=== PATIENT | female | born 1955 | race Caucasian/White ===

== ENCOUNTER → 2017-08-22 10:01 | Outpatient (CLI) | payer OTHER, SELFPAY ==
--- NOTE | 2017-08-22 10:04 | HPBI_ITS ---
MAMMOGRAPHY - BILATERAL SCREENING REASON FOR EXAM: Female, 62 years old. Routine annual screening examination. PERTINENT HISTORY: Non-contributory. Remote right stereotactic breast biopsy. TECHNIQUE: Digital bilateral breast supa (3D mammographic acquisition) in the CC and MLO projections. 2-D mediolateral oblique (MLO) and craniocaudad (CC) views of both breasts were obtained. CAD: Full Field Digital Mammography with Computer Added Detection was performed. COMPARISON: Comparison is made with prior study dated July 30, 2016 and July 29, 2015. FINDINGS: Breast Composition: The breasts are heterogeneously dense, which may obscure small masses. There are no dominant masses or suspicious calcifications. No other significant abnormalities are identified. There has been no significant change since the prior study. HPBI/SCREENING MAMM (CAD), BILAT IMPRESSION: Stable bilateral screening mammogram. Yearly follow-up mammogram recommended. (A) ASSESSMENT CATEGORY: BIRADS Category 1: Negative. A letter regarding these results will be sent to the patient by the facility within 30 days. Approximately 10% of breast cancers are not detected by mammography. A normal mammogram should not delay biopsy of a clinically suspicious abnormality. [id number] Electronically Signed: Krishna Robins MD at 10:56 EST Tel [phone], Service support ,
== END ==
PROVIDERS: Family Provider Family Medicine; PCP Family Medicine; Visit Provider Obstetrics & Gynecology
DX: Z12.31 Encounter for screening mammogram for malignant neoplasm of breast (principal)
CPT/HCPCS: 77063; 77067

== ENCOUNTER → 2017-12-21 08:54 | Outpatient (CLI) | payer OTHER, SELFPAY ==
[2017-12-21 10:56] LABS: AST(SGOT) 19 U/L (15-37); Alanine Aminotransfer ALT/SGPT 28 U/L (13-56); Albumin, Serum 3.7 g/dL (3.2-5.0); Alkaline Phosphatase 70 U/L (45-117); Bilirubin, Direct 0.11 mg/dL (0.00-0.30); Cholesterol 194 mg/dL (200); Globulin 2.9 g/dL (2.2-4.2); High Density Lipoprotein 103 mg/dL; Protein, Total 6.6 g/dL (6.4-8.2); Triglycerides 68 mg/dL; Very Low Density Lipoprotein 14 mg/dL (5-40)
== END ==
PROVIDERS: Nurse Practitioner Family; Family Provider Family Medicine; PCP Family Medicine; Visit Provider Internal Medicine Cardiovascular Disease
DX: E78.5 Hyperlipidemia, unspecified (principal); Z79.899 Other long term (current) drug therapy
CPT/HCPCS: 36415; 80061; 80076

== ENCOUNTER → 2017-12-23 16:33 | Outpatient (CLI) | payer OTHER, SELFPAY ==
--- NOTE | 2017-12-23 10:38 | COLBX_PTH ---
PATIENT: BHAVIN JOHNSON LOC: [facility] U#:[id number] AGE/SX: 70/F ROOM: RE12/23/[address]: Dr. Avery Calle MD : [id number] BED: DIS: SPEC #: [id number] RECD: 12/23/17 15:36 STATUS: CODIE DE LA O #: [id number] DAVID: 12/23/17 10:[address]: Avery Calle DEPT: SURGICAL PATHOLOGY RECD BY: Brady Sanchez ENTERED: 12/26/17 07:50 SP TYPE: COLON BX OTHR DR: Dr. Aster Faust MD [facility] Tissues: Cecum, NOS Procedures: Surgery Specimen Level IV HEADER OPERATION: Colonoscopy with polypectomy PRE-OP DIAGNOSIS: Screening/polyp TISSUE SUBMITTED: Cecal polyp, rule out adenoma MICROSCOPIC DIAGNOSIS Cecal polyp, biopsy: Fragments of tubular adenoma. AM:sp 12/27/17 MICROSCOPIC DESCRIPTION Slides are reviewed. GROSS DESCRIPTION Received in fixative is one container labeled with the patient's name and designated rectal polyp. The specimen consists of multiple irregular fragments of castillo soft tissue that in aggregate measure 2.5 x 1.5 x 0.2 cm. The entire specimen is submitted in one cassette. BARB:aurea 12/26/17 TC: 5 CPT: 25411
== END ==
PROVIDERS: Visit Provider Internal Medicine Gastroenterology
DX: Z12.11 Encounter for screening for malignant neoplasm of colon (principal); D12.0 Benign neoplasm of cecum
CPT/HCPCS: 88305

== ENCOUNTER → 2018-01-17 07:50 | Outpatient (CLI) | payer OTHER, SELFPAY ==
--- NOTE | 2018-01-17 07:53 | CT_ITS ---
STUDY: CTA CHEST REASON FOR EXAM: Female, 62 years old. Ascending aortic aneurysm follow up, no new problems. Hx hypertension, prior breast biopsy. RADIATION DOSAGE (If Supplied By Facility): CTDIvol = ( 6.60 ) mGy, DLP = ( 226.27 ) mGycm TECHNIQUE: The examination was performed with the intravenous administration of 75mL ml of Isovue 370 contrast material. Post-processing of the angiographic images was performed, with multiplanar reformation and 3D reconstruction. Individualized dose optimization techniques were used for this CT. COMPARISON: Jan 19 2017 8:02am and Dec 19 2013 7:56am FINDINGS: There is stable dilatation of the aortic root up to 4.3 cm, approximately 4.2 cm in 2013. There is stable fusiform ascending thoracic aneurysm 4.5 x 4.5 cm. There is no dissection or hemopericardium. The descending thoracic aorta measures 2 x 1.9 cm and is normal Mild compression of dependent lung parenchyma. Stable nodular thickening of the left major fissure since 2013. There is no demonstrated pleural abnormality. Normal heart and pericardium. Normal mediastinum. Normal hilar regions. Normal enhanced pulmonary arteries. There are stable mild degenerative changes of the thoracic spine, hemangioma of T8 vertebral body is stable lower thoracic prominent neural sheath. No renal mass/schwannoma cannot be .. There is no demonstrated abnormality of the visualized upper abdomen. CT/CTA Chest W/WO Contrast IMPRESSION: No significant change in dilatation of the aortic root measuring up to 4.3 cm in falciform dilatation of the ascending thoracic aorta of 4.5 cm. Electronically Signed: Lucia Padilla MD at 10:54 EDT Tel , Service support ,
[2018-01-17 08:10] LABS: CREATININE FINGERSTICK 0.7 mg/dL (0.55-1.02); EGFR FINGERSTICK > 60.0000 mL/min (>60)
== END ==
PROVIDERS: Family Provider Family Medicine; PCP Family Medicine; Visit Provider Internal Medicine Cardiovascular Disease
DX: I77.810 Thoracic aortic ectasia (principal)
CPT/HCPCS: 71275; Q9967

== ENCOUNTER → 2018-09-11 08:20 | Outpatient (CLI) | payer OTHER, SELFPAY ==
--- NOTE | 2018-09-11 08:23 | BI_ITS ---
MAMMOGRAPHY - BILATERAL SCREENING REASON FOR EXAM: Female, 63 years old. Routine annual screening examination. PERTINENT HISTORY: NO FM HX , CURRENT VAG ESTROGEN X 6 YRS, RT STEREO BX 20+ yrs ago, lt mole marked TECHNIQUE: Digital bilateral breast supa (3D mammographic acquisition) in the CC and MLO projections. 2-D mediolateral oblique (MLO) and craniocaudad (CC) views of both breasts were obtained. CAD: Full Field Digital Mammography with Computer Added Detection was performed. COMPARISON: 08/22/2017, 07/30/2016 and 07/29/2015 FINDINGS: Breast Composition: There are no dominant masses or suspicious calcifications. Scattered benign-appearing round and punctate calcifications are seen in both breasts are not significantly unchanged since the previous study. No other significant abnormalities are identified. BI/SCREENING MAMM (CAD), BILAT IMPRESSION: Stable bilateral screening mammogram. Yearly follow-up mammogram recommended. (A) ASSESSMENT CATEGORY: BIRADS Category 2: Benign. A letter regarding these results will be sent to the patient by the facility within 30 days. Approximately 10% of breast cancers are not detected by mammography. A normal mammogram should not delay biopsy of a clinically suspicious abnormality. [id number] Electronically Signed: Lucia Padilla, at 11:48 EDT Tel , Service support ,
== END ==
PROVIDERS: Family Provider Family Medicine; PCP Family Medicine; Referring Provider Obstetrics & Gynecology; Visit Provider Obstetrics & Gynecology
DX: Z12.31 Encounter for screening mammogram for malignant neoplasm of breast (principal)
CPT/HCPCS: 77063; 77067

== ENCOUNTER → 2019-01-26 | Outpatient (CLI) | payer OTHER, SELFPAY ==
[2019-01-26 10:02] LABS: AST(SGOT) 13 U/L (15-37); Alanine Aminotransfer ALT/SGPT 24 U/L (13-56); Albumin, Serum 3.7 g/dL (3.2-5.0); Alkaline Phosphatase 64 U/L (45-117); Bilirubin, Direct 0.11 mg/dL (0.00-0.30); Cholesterol 204 mg/dL (200); Globulin 2.8 g/dL (2.2-4.2); High Density Lipoprotein 112 mg/dL; Protein, Total 6.5 g/dL (6.4-8.2); Triglycerides 46 mg/dL; Very Low Density Lipoprotein 9 mg/dL (5-40)
== END | disposition home or self-care (01) ==
LOC: LAB 08:41
PROVIDERS: Family Provider Family Medicine; PCP Family Medicine; Referring Provider Internal Medicine Cardiovascular Disease; Visit Provider Internal Medicine Cardiovascular Disease
DX: E78.5 Hyperlipidemia, unspecified (principal); I34.1 Nonrheumatic mitral (valve) prolapse; I35.1 Nonrheumatic aortic (valve) insufficiency; I77.810 Thoracic aortic ectasia; Q23.1 Congenital insufficiency of aortic valve
CPT/HCPCS: 36415; 80061; 80076

== ENCOUNTER → 2019-02-12 | Outpatient (CLI) | payer OTHER, SELFPAY ==
[2019-01-31 13:48] VITALS: BMI 21.4
--- NOTE | 2019-02-12 14:27 | CT_ITS ---
STUDY: CT CHEST WITH CONTRAST REASON FOR EXAM: Female, 63 years old. Thoracic aneurysm follow-up RADIATION DOSAGE (If Supplied By Facility): CTDIvol = ( 8.95 ) mGy, DLP = ( 220.17 ) mGycm TECHNIQUE: Transaxial imaging was performed following intravenous administration of 100 IV Isovue 300. Individualized dose optimization techniques were used for this CT. COMPARISON: None. FINDINGS: Mild increasing ascending aortic aneurysm since previous study. As example, on the previous study the aortic root measured 4.3 cm across, and is now currently 4.5 cm. Proximal ascending aorta previously measured 4.5 cm and now 4.7 cm. No dissection. There is hyperinflation of the lungs consistent with chronic obstructive lung disease (COPD). No infiltrates. No effusions There is no demonstrated pleural abnormality. Normal heart and pericardium. Normal mediastinum. Normal hilar regions. Normal enhanced pulmonary arteries. Normal aorta arch and descending thoracic aorta. Normal osseous structures. There is no demonstrated abnormality of the visualized upper abdomen. CT/Chest WITH Contrast IMPRESSION: Mildly increasing ascending aortic aneurysm with measurements as above. No dissection. No acute chest disease. Electronically Signed: Brayden Cummings MD at 19:27 EDT , Service support ,
[2019-02-12 14:41] LABS: CREATININE FINGERSTICK 0.9 mg/dL (0.55-1.02)
== END | disposition home or self-care (01) ==
LOC: CT 14:26
PROVIDERS: Family Provider Family Medicine; PCP Family Medicine; Referring Provider Internal Medicine Cardiovascular Disease; Visit Provider Internal Medicine Cardiovascular Disease
DX: I71.2 Thoracic aortic aneurysm, without rupture (principal); Q23.1 Congenital insufficiency of aortic valve; E78.5 Hyperlipidemia, unspecified; I10 Essential (primary) hypertension
CPT/HCPCS: 71260; Q9967

== ENCOUNTER → 2019-02-22 | Outpatient (CLI) | payer OTHER, SELFPAY ==
[2019-01-31 13:48] VITALS: BMI 21.4
--- NOTE | 2019-02-22 08:56 | ECHOD_ITS ---
Reason For Study: Bicuspid AV Procedure This was a 2D Doppler, Color Flow transthoracic echocardiogram. The exam was of adequate technical quality. Exam performed in department. Left Ventricle Normal LV size. Left ventricular systolic function is normal. The estimated ejection fraction is 65 %. No evidence for diastolic dysfunction. No regional wall motion abnormalities noted. Right Ventricle Normal RV size. Normal systolic function. Atria Normal left atrium. Normal right atrium. No doppler evidence for ASD. Mitral Valve There is no mitral annular calcification. Mild diffuse mitral valve thickening. Mild focal mitral valve calcification of the anterior leaflet. Equivocal mitral valve prolapse. Mild (1+) mitral valve insufficiency. Tricuspid Valve Normal tricuspid valve. Trivial tricuspid valve insufficiency. Right ventricular systolic pressure estimated to be 21 mmHg. Aortic Valve Bicuspid aortic valve. Mild aortic stenosis. Moderate (2+) eccentric aortic valve insufficiency. Pulmonic Valve The pulmonic valve is not well visualized. Mild (1+) pulmonic valve insufficiency. Great Vessels Moderately dilated aortic root. The ascending aorta is moderately dilated. Pericardium/Pleural No pericardial effusion. MMode/2D Measurements & Calculations LVIDd: 4.3 cm IVSd: 1.1 cm LVOT diam: 2.0 cm LVIDs: 2.7 cm LVPWd: 1.1 cm LVOT area: 3.2 cm2 RVDd: 2.4 cm FS: 37.5 % Ao root diam: 4.8 cm LAV(MOD-bp): 38.2 ml EDV(MOD-sp4): 88.6 ml LAV(MOD-bp) Indexed: 23.5 ml/m2 ESV(MOD-sp4): 23.1 ml LAV(MOD-sp2): 29.5 ml EF(MOD-sp4): 73.9 % LAV(MOD-sp4): 39.5 ml EDV(MOD-sp2): 64.8 ml SV(MOD-sp4): 65.5 ml SV(MOD-sp2): 43.3 ml EF(MOD-sp2): 66.7 % LA A4 area: 14.0 cm2 LA dimension(2D): 3.1 cm RA A4 area: 11.1 cm2 Doppler Measurements & Calculations MV E max hadley: 57.5 cm/sec Lat Peak E' Hadley: 4.8 cm/sec Med Peak E' Hadley: 6.7 cm/sec MV A max hadley: 63.9 cm/sec E/E' lat: 12.0 E/E' med: 8.6 MV E/A: 0.90 Ao V2 max: 214.9 cm/sec AI max hadley: 473.3 cm/sec LV V1 max: 129.2 cm/sec Ao max P.5 mmHg AI max P.7 mmHg LV V1 max P.7 mmHg Ao V2 mean: 143.7 cm/sec LV V1 mean P.7 mmHg Ao mean P.4 mmHg AI dec slope: 321.1 cm/sec2 LV V1 mean: 92.3 cm/sec Ao V2 VTI: 43.2 cm AI P1/2t: 431.7 msec LV V1 VTI: 29.4 cm PRAFUL(I,D): 2.2 cm2 PRAFUL(V,D): 1.9 cm2 SV(LVOT): 94.9 ml PA V2 max: 76.6 cm/sec TR max hadley: 210.9 cm/sec TR max P.8 mmHg Interpretation Summary Left ventricular systolic function is normal. The estimated ejection fraction is 65 %. Mild diffuse mitral valve thickening. Mild focal mitral valve calcification of the anterior leaflet. Equivocal mitral valve prolapse. Mild (1+) mitral valve insufficiency. Trivial tricuspid valve insufficiency. Bicuspid aortic valve. Mild aortic stenosis. Moderate (2+) eccentric aortic valve insufficiency. Mild (1+) pulmonic valve insufficiency. Moderately dilated aortic root. The ascending aorta is moderately dilated. Right ventricular systolic pressure estimated to be 21 mmHg. No evidence for diastolic dysfunction. Ordering Physician: Hal Barnett Referring Physician: Aster Faust M.D. Performed By: Chela Benjamin RDCS
== END | disposition home or self-care (01) ==
LOC: CVS 08:56
PROVIDERS: Family Provider Family Medicine; PCP Family Medicine; Referring Provider Internal Medicine Cardiovascular Disease; Visit Provider Internal Medicine Cardiovascular Disease
DX: Q23.1 Congenital insufficiency of aortic valve (principal); I71.2 Thoracic aortic aneurysm, without rupture; E78.5 Hyperlipidemia, unspecified; I10 Essential (primary) hypertension
CPT/HCPCS: 93306

== ENCOUNTER → 2019-08-13 12:55 | Outpatient (CLI) | payer OTHER, SELFPAY ==
[2019-01-31 13:48] VITALS: BMI 21.4
--- NOTE | 2019-08-13 12:55 | CT_ITS ---
STUDY: CT CHEST WITH CONTRAST REASON FOR EXAM: Female, 64 years old. TAA FOLLOW UP RADIATION DOSAGE (If Supplied By Facility): CTDIvol = ( 11.26 ) mGy, DLP = ( 225.31 ) mGycm TECHNIQUE: Transaxial imaging was performed following intravenous administration of IV 100mL Isovue-300. Multiplanar coronal and sagittal images were reformatted. Individualized dose optimization techniques were used for this CT. COMPARISON: Comparison is made with prior examination of February 12, 2019. FINDINGS: Stable mild increased markings at the lung bases suggest some mild scarring. There is no demonstrated pleural abnormality. Normal heart and pericardium. Normal mediastinum. Normal hilar regions. Normal enhanced pulmonary arteries. Aneurysmal dilatation of the ascending thoracic aorta. The dilatation presently measures 4.95 cm. Previously, it measured 4.7 cm. There are mild degenerative changes of the thoracic spine. There is no demonstrated abnormality of the visualized upper abdomen. CT/Chest WITH Contrast IMPRESSION: The ascending thoracic aorta presently measures 4.95 cm. Electronically Signed: Krishna Robins, at 15:15 EST , Service support ,
[2019-08-13 13:16] LABS: CREATININE FINGERSTICK 0.8 mg/dL (0.55-1.02); EGFR FINGERSTICK > 60.0000 mL/min (>60)
== END ==
PROVIDERS: Family Provider Family Medicine; PCP Family Medicine; Referring Provider Internal Medicine Cardiovascular Disease; Visit Provider Internal Medicine Cardiovascular Disease
DX: I10 Essential (primary) hypertension (principal); I71.2 Thoracic aortic aneurysm, without rupture; I34.1 Nonrheumatic mitral (valve) prolapse; Q23.1 Congenital insufficiency of aortic valve
CPT/HCPCS: 71260; Q9967

== ENCOUNTER → 2020-01-09 10:19 | Outpatient (CLI) | payer OTHER, SELFPAY ==
[2019-01-31 13:48] VITALS: BMI 21.4
--- NOTE | 2020-01-09 10:22 | BI_ITS ---
MAMMOGRAPHY - BILATERAL SCREENING REASON FOR EXAM: Female, 64 years old. Routine annual screening examination. PERTINENT HISTORY: Non-contributory. Remote right stereotactic breast biopsy. TECHNIQUE: Digital bilateral breast sal (3D mammographic acquisition) in the CC and MLO projections. 2-D mediolateral oblique (MLO) and craniocaudad (CC) views of both breasts were obtained. CAD: Full Field Digital Mammography with Computer Added Detection was performed. COMPARISON: Comparison is made with prior examination of September 11, 2018 and August 22, 2017. FINDINGS: Breast Composition: The breasts are heterogeneously dense, which may obscure small masses. There are no dominant masses or suspicious calcifications. No other significant abnormalities are identified. There has been no significant change since the prior study. BI/SCREEN MAMM (CAD) W/SAL BILAT IMPRESSION: Stable bilateral screening mammogram. Yearly follow-up mammogram recommended. (A) ASSESSMENT CATEGORY: BIRADS Category 1: Negative. A letter regarding these results will be sent to the patient by the facility within 30 days. Approximately 10% of breast cancers are not detected by mammography. A normal mammogram should not delay biopsy of a clinically suspicious abnormality. [id number] Pending Final Proof Editing
== END ==
PROVIDERS: Family Provider Family Medicine; PCP Family Medicine; Visit Provider Obstetrics & Gynecology
DX: Z12.31 Encounter for screening mammogram for malignant neoplasm of breast (principal)
CPT/HCPCS: 77063; 77067

== ENCOUNTER → 2020-01-23 12:53 | Outpatient (CLI) | payer OTHER, SELFPAY ==
[2019-01-31 13:48] VITALS: BMI 21.4
[2020-01-22 10:11] LABS: Albumin, Serum 3.6 g/dL (3.2-5.0); Protein, Total 6.1 g/dL (6.4-8.2)
[2020-01-22 10:12] LABS: AST(SGOT) 18 U/L (15-37); Alanine Aminotransfer ALT/SGPT 34 U/L (13-56); Alkaline Phosphatase 66 U/L (45-117); Bilirubin, Direct 0.16 mg/dL (0.00-0.30); Cholesterol 185 mg/dL (200); Globulin 2.5 g/dL (2.2-4.2); High Density Lipoprotein 104 mg/dL; Triglycerides 38 mg/dL; Very Low Density Lipoprotein 8 mg/dL (5-40)
--- NOTE | 2020-01-23 12:56 | CT_ITS ---
STUDY: CTA CHEST REASON FOR EXAM: Female, 64 years old. ASCENDING AORTIC ROOT DILATION RADIATION DOSAGE (If Supplied By Facility): CTDIvol = ( 13.985 ) mGy, DLP = ( 188.23 ) mGycm TECHNIQUE: The examination was performed with the intravenous administration of IV 100mL Isovue-300. Post-processing of the angiographic images was performed, with multiplanar reformation and 3D reconstruction. Individualized dose optimization techniques were used for this CT. COMPARISON: Comparison is made with prior study dated 08/13/2019. FINDINGS: Normal enhancement of the main pulmonary artery and right and left pulmonary arteries. Normal enhancement of the bilateral peripheral pulmonary arteries. There is no demonstrated pulmonary embolism. There is aneurysmal dilatation of the ascending aorta. The transverse diameter of the ascending aorta measures 50 mm''s. There is no demonstrated aortic dissection. Normal heart and pericardium. Normal mediastinum. Normal hilar regions. Normal visualized trachea and bronchi. The lungs are well expanded. Stable mild increased markings at the lung bases suggest mild scarring. Normal pleura. Normal chest wall structures. There are degenerative changes of thoracic spine. Normal visualized upper abdomen. CT/Chest WITH Contrast IMPRESSION: Dilatation of the ascending aorta with a transverse dimension of 50 mm. This is essentially unchanged. Stable mild degree of scarring at the lung bases. Electronically Signed: Krishna Robins, at 14:07 EDT , Service support ,
[2020-01-23 13:06] LABS: CREATININE FINGERSTICK 0.8 mg/dL (0.55-1.02)
== END ==
PROVIDERS: PCP Family Medicine; Referring Provider Internal Medicine Cardiovascular Disease; Visit Provider Internal Medicine Cardiovascular Disease
DX: I71.2 Thoracic aortic aneurysm, without rupture (principal)
CPT/HCPCS: 36415; 71260; 80061; 80076; Q9967

== ENCOUNTER → 2020-07-07 07:44 | Outpatient (CLI) | payer OTHER, SELFPAY ==
[2020-01-28 10:03] VITALS: BMI 21.3
[2020-07-07 08:23] LABS: Absolute Lymphocyte Count 1.23 X10^3/uL (0.83-4.51); Absolute Neutrophil Count 5.9 X10^3/uL (2.0-7.7); Basophil# 0.05 X10^3/uL; Basophil% 0.6 % (0-1); Eosinophils% 3.6 % (0-5); Hematocrit 33.6 % (37-47); Hemoglobin 10.3 g/dL (12.0-15.0); Lymphocyte # 1.23 X10^3/ul (4.0); Lymphocyte % 14.8 % (19-41); Mean Corp Hgb Conc 30.7 g/dL (32-36); Mean Corpuscular Hgb 28.6 pg (27.0-32.0); Mean Corpuscular Volume 93.3 fL (81-99); Mean Platelet Vol. 9.8 fl (6.2-12.0); Monocyte# 0.76 X10^3/uL; Monocyte% 9.2 % (0-10); NRBC Flagged by Analyzer 0 % (0-5); Neutrophil # 5.94 X10^3/uL (2.7-7.7); Neutrophil % 71.6 % (47-70); Platelet Count 387 K/mm3 (150-450); RBC Distribution Width CV 13.5 % (11.6-14.6); RBC Distribution Width SD 46.1 fl (35.1-43.9); White Blood Count 8.3 K/mm3 (4.4-11.0)
[2020-07-07 08:54] LABS: ALB/GLOB Ratio 0.9 RATIO (0.9-2.4); AST(SGOT) 45 U/L (15-37); Alanine Aminotransfer ALT/SGPT 76 U/L (13-56); Alkaline Phosphatase 233 U/L (45-117); Anion Gap 5 (5-15); BUN 16 mg/dL (7-18); BUN/Creat Ratio 19.8 RATIO (10-20); Calcium,Total 8.7 mg/dL (8.5-10.1); Chloride 102 mmol/L (98-107); Cholesterol 144 mg/dL (200); Creatinine, Serum 0.81 mg/dL (0.55-1.02); EST Glomerular Filtration Rate 76 mL/min (>60); Est Glom Filt Rate - Afr Amer 92 mL/min (>60); Globulin 3.4 g/dL (2.2-4.2); Glucose 95 mg/dL (74-106); High Density Lipoprotein 73 mg/dL; Potassium 4.1 mmol/L (3.5-5.1); Protein, Total 6.4 g/dL (6.4-8.2); Sodium Level 136 mmol/L (136-145); Triglycerides 71 mg/dL; Very Low Density Lipoprotein 14 mg/dL (5-40)
== END ==
PROVIDERS: PCP Family Medicine; Referring Provider Family Medicine; Visit Provider Family Medicine
DX: Z00.00 Encounter for general adult medical examination without abnormal findings (principal); E78.5 Hyperlipidemia, unspecified
CPT/HCPCS: 36415; 80053; 80061; 85025

== ENCOUNTER → 2020-07-15 10:29 | Outpatient (CLI) | payer OTHER, SELFPAY ==
[2020-01-28 10:03] VITALS: BMI 21.3
--- NOTE | 2020-07-15 10:33 | PCM.CR.ITP ---
Diagnosis - General Information Admitting Diagnosis: S/P AVR Personal Learning Style:: Audio/Visual, Written Barriers to Learning: Vision Impairment Stage of change r/t lifestyle modifications:: Action Gave educational material for:: Treating Heart Disease, Emotions & Heart Disease, Stress Management & Relaxation, Sleep Disorders & Heart Disease, How The Heart Works, What it means to have Heart Disease, How Coronary Artery Disease is Diagnosed, Heart Procedures, What Heart Medications Do, Risk Factors & Modifications, Living an Active Life, Nutrition - Education/Goals Individual Counseling: Initial Assessment: Abnormal Cholesterol Levels Cardiac Rehabilitation Goals: 1. Maintain the individual as the primary focus of care. 2. To improve the patient's quality of life. 3. Identification of cardiac risk factors and provide cardiac risk factor management. 4. Enhance the psychosocial status of the patient. 5. Reconditioning enough to allow the patient to resume customary activities. 6. Control symptoms of cardiac disease Personal Goals: Initial Assessment: Improve management of stress and emotions, Improve energy level, Participate in home exercise program, Get back to work, or to resume activities faster, Improve muscle strength and endurance, Improve diet and eating habits (eat healthier), Control risk factors (learn risk factor modification) Scale for measuring improvement of personal goals: Enter appropriate number in Comments. 2 = Unchanged. 3 = Slightly Better. 4 = Moderate Improvement. 5 = Met my Goal - Diagnosis & Disease Process Outcomes/Goals: Pt IDs own risk factors & lifestyle modifications by Session 10, Verbalizes symptoms of angina & response by session 3., Pt independently manages Plan/Interventions: Assist Pt to ID & engage in lifestyle modification to reduce CVD risk, Instruct on individual risk factors, Review symptoms of angina & emergency actions, Review secondary diagnosis & identify educational needs. - Safety Referral to Physical Therapy: No Referral to [facility] Case Management: No Fall Risk Assessed:: Yes Assistive Devices:: None Exercise - Initial Assessment - Visit Date of Eval: 07/15/20 Session #:: 0 - pre-cardiac rehab Mets: Pre-: >7 METS for 30 minutes by discharge - Physician Prescribed Exercise Modalities: Treadmill, Airdyne, NuStep Frequency: 3x/week for 12 weeks [36 sessions] Intensity: 60-80% of age predicted maximum heart rate reserve Current METSs:: 3.5 Target Heart Rate:: 101-132 Maximum Excercise HR:: 118/60 - Outcomes & Goals Goals:: Verbalizes understanding of THR, RPE & goal METS by session 6, Documents in home exercise log/reports 30 min aerobic 5 day/wk by DC, Demonstrates accurate pulse taking by DC - Intervention & Plan Exercise Program Goals: Instruct on personal THR & RPE, Instruct on MET level & personal MET goal, Show patient to take own pulse /validate performance until accurate, Instruct on home exercise - Physical Activity Home Exercise Physical Activity - Home Exercise: Safe Exercise, Warm-up, Self-monitoring, Cool-Down, Home Exercise > 30 min Daily, Sitting Time <3 hours/daily - Outcomes & Goals Outcomes/Goals: Demonstrates correct Warm-up/exercise Cool-Down (S3) if = 2.5 METs, Verbalizes symptoms of exercise intolerance by Session 3 (S3), Demonstrate safe equipment use (S3) & follows exercise prescrition (6) - Intervention & Plan Plan/Intervention: Instruct warm-up & cool-down if exercising at > 2 METs, Instruct on symptoms of exercise intolerance & actions to take, Instruct & monitor on saf, Assess intial functional capacity & safety risk Nutrition - Initial Assessment - Program Goals Nutrition Program Goals: LDL <100 optimal. 100 - 129 Near optimal. 130 - 159 Borderline High. 160 - 189 High. Total Cholesterol <200 desirable. 200 - 239 Borderline High. >/= 240 High. HDL < 40 Low >/=60 High. Triglycerides <150 desirable. <199 optimal. VlDL 5 - 40. HgbA1C <7%. BMI <25 Patient has diagnosis of Hyperlipidemia (ICD E78)?: No - Visit Date of Assessment:: 07/15/20 Session #:: 0 - pre-cardiac rehab - Cholesterol/Lipids Triglycerides (mg/dL): 71 - 07/07/2020 Total Cholesterol (mg/dL): 144 LDL Cholesterol (mg/dL): 57 HDL Cholesterol (mg/dL): 73 Determine presence & major risk factors that modify LDL goal: Hypertension or hypertensive medication, Age men > 45 years; women >/= 55 years Outcomes/Goals: Pt IDs own risk factors & lifestyle modifications by Session 10, Verbalizes symptoms of angina & response by session 3., Pt independently manages Intervention/Plan: Instruct on personal lipid levels & lipid goals/NCEP guidelines Referral to dietitian:: Yes - Medical Nutrition Therapy and Low BMI - Diabetes (Other Core Measures) Diabetes Type: Not Applicable - Weight Mgt (Other Care) Not Applicable: Yes Height: 5 ft 5 in Weight:: 128 lb 11.2 oz BMI: 21.4 Diagnosis Overweight/Obesity BMI> 30% ICD-10 E66: No Diagnosis High BMI/Morbid Obesity BMI> 35% ICD-10 Z68: No Outcomes/Goals: Pt sets, maintains & shows weight loss goal & trend during rehab Intervention/Plan: Instruct on ideal BMI & set weight loss goal w/patient, Assist pt to ID & incorporate diet changes for weight loss by S9 - Healthy Eating Habits Will attend diet classes:: Yes Outcomes/Goals:: Consume diet rich in vegs,fruits,whole grain/high fiber,fish,lean meat, Limit sat/trans fats,cholesterol & added salts & sugars Intervention/Plan:: Assess current eating habits Medical - Initial Assessment - Visit Date of Eval: 07/15/20 Session #:: 0 - pre-cardiac rehab - Medication Compliance Preventative Medication(s):: Aspirin H/O mental health issues: depression, anxiety, or addiction?: Yes Doesn?t believe in the benefits of treatment?: No Believes medications are unnecessary or harmful?: No Has a concern about medication side effects?: No Expresses concern over the cost of medications?: No Outcomes/Goals: Verbalizes medications,desired effect & common side effects @ DC, Pt self-reports following medication regimen, Keeps card in wallet w/medications listed by DC Interventions/plans: Instruct on medication effects & side effects, Review medication list w/patient every two weeks, Instruct importance of taking meds as ordered & assist problem solving - Tobacco Use Tobacco Use: Non-smoker - Hypertension Hypertension Diagnosis:: Hypertension ICD-10 I10 Resting Blood Pressure:: 118/60 [employer] Hypertension Guidelines: [place] [employer] Hypertension Guidelines. Normal BP Less than 120/80. Elevated BP 120/80. Hypertension Stage 1: BP 130-139/80-89. Hypertesnion Stage 2: BP 140 or higher/90 or higher. Hypertension Crisis: BP higher than 180/120 Outcomes/Goals: Able to verbalize/achieve optimal blood pressure <130/80, Incorporates diet changes & exercise for blood pressure control by DC Interventions/plan: Instruct on optimal blood pressure, hypertension & medications, Instruct on effects of sodium, alcohol, stress, exercise &hypertension - Tobacco Cessation Referral Smoking Cessation Referral:: No Individual Education/Counseling:: No Education Schedule Given:: Yes Psychosocial - Initial Assess - VIsit Date of Eval: 07/15/20 Session #:: 0 - pre-cardiac rehab Not Applicable: No History of previous Mental disease:: Yes History of Emotional Disorders: Anxious, Depression - Target Goals Target Goals: Assess presence or absence of depression. Using a valid screening tool, maximizes coping skills. Positive support system - Psychosocial Test Tool Used:: Thu Carpenter QOL Cardiac, PHQ-9 Questionnaire phq-9 Severity: Severity. 1-4 Minimal Depression. 5-9 Mild Depression. 10-14 Moderate Depression. 15-19 Moderately Sever Depression. 20-27 Severe Depression. Rule: - Referral to Behavioral Health PS - Interventions: Yes Attend Stress Management Classes, No Referral to Behavioral Health if PHQ-9 score >9:, No Referral to [facility], No Referral to Physician if PHQ-9 if score is 5-9: - Outcomes/Goals: See list Psychosocial Outcomes/Goals:: ID's personal stressors & 2 strategies to manage stress by discharge - Intervention/Plan: See List Interventions/Plan:: Assess stressors,coping strategies & signs of derpression on admission, Instruct/assist pt to develop coping & personal stress Mgt strategies, Instruct patient to recognize signs & symptoms of depression, Instruct patient to recog Patient Health Questionnaire Initial Assessment 2. Feeling down, depressed, or hopeless: Several days 3. Trouble falling or staying asleep, or sleeping too much: Not at all 4. Feeling tired or having little energy: Nearly every day 5. Poor appetite or overeating: Not at all 6. Feeling bad about yourself -- or that you are a failure or have let yourself or your family down: Not at all 7. Trouble concentrating on things, such as reading the newspaper or watching television: More than half the days 8. Moving or speaking so slowly that other people could have noticed. Or the opposite - being so fidgety or restless that you have been moving around a lot more than usual: Not at all 9. Thoughts that you would be better off , or of hurting yourself in some way: Not at all How difficult have these problems made it for you to do your work, take care of things at home, or get along with other people?: Somewhat difficult Total Score: 6 AQUILINO-Q SV Test - Statements CAD is a disease of the arteries in the heart: False Examples of risk factors for heart disease: True Angina is chest pain or discomfort: True The benefits of resistance training include: True Eating more meat and dairy products: False Anti-platelet medications such as aspirin are important: True The only effective way to manage stress: False An exercise warm-up slowly increases heart rate: True Prepared, processed foods usually have high sodium: True Depression is common after a heart attack: True The statin medications lower cholesterol: True To control blood pressure, lower the amount of sodium: True If someone gets chest discomfort during walking: False Transfats are partially hydrogenated vegetable oils: True Sleep apnea that is not treated increases the risk: False To control cholesterol, one should become a vegetarian: False Someone knows if he/she is exercising at the right level: True Diabetes cannot be prevented with exercise & health eating: False Stress is a large risk for heart attack: True A diet that can help lower blood pressure is rich in: True - Total Score Total Correct Responses: 20 Self-Efficacy Initial Assessment We would like to know how confident you are in doing certain activities. Please select your confidence level for:: Select your confidence level for the following using the scale 1-10 where 1 is not at all confident and 10 is totally confident. Your score is the average of all 6 responses. Fatigue: How confident are you that you can keep the fatigue caused by your disease from interfering with the things you want to do? Select Number: 1 Physical Discomfort or Pain: How confident are you that you can keep the physical discomfort or pain of your disease from interfering with the things you want to do? Select Number: 4 Emotional Distress: How confident are you that you can keep the emotional distress caused by your disease from interfering with the things you want to do? Other Symptoms or Health Problems: How confident are you that you can keep other symptoms or health problems from interfering with the things you want to do? Select Number: 10 Different Tasks and Activities: How confident are you that you can do the different tasks and activities needed to manage your health condition so as to reduce your need to see a doctor? Select Number: 9 Medication: How confident are you that you can do things other than just taking medication to reduce how much your illness affects your everyday life? Select Number: 10 Nutrition Survey - Nutrition Survey Instructions Scoring Instructions: Scoring is as follows: Yes = 1 points. No = 0 point. Patient score that is >/=12 is considered to be at potential nutritional risk and could benefit from a referral to a registered dietitian. - Nutrition Survey Initial Have you lost >10 lbs over the past 2 months without trying?: No Are you following a special diet at home for diabetes, low fat, or low salt?: Yes Are you interested in meeting with a dietitian for help understanding your diet?: No Do you eat less than 3 meals a day?: No Do you eat fatty meats (pacheco, sausage, ribs, etc), fried foods, desserts, large amounts of salad dressings, margarine, butter, or cheese most days?: No Do you have food allergies? [Enter types in comment field]: Yes Do you eat in restaurants more than 3 times a week?: No Do you season food with salt, seasoning salt, or garlic salt?: No Do you used canned, boxed, frozen meals, or soups, seasoning packets?: Yes Total Score:: 3
--- NOTE | 2020-07-15 10:34 | CR.HP_ITS ---
CR - History & Physical - General Arrival date:: 07/15/20 Arrival time:: 10:30 Date of Referral:: 07/07/20 Date of CR Evaluation:: 07/15/20 Referring Physician: Dr. Barnett Primary Diagnosis: S/P AVR - History of Present Cardiac Event Onset Date: Enter Onset Date of cardiac illnesses in Comment field below Current stable Angina Pectoris:: No Acute Myocardial Infarction within 12 months:: No Coronary Artery Bypass Graft:: No Heart valve replacement or repair:: Yes - Prescence of xenogenic heart valve 06/16/2020; aortic arch replaced also. - Medications Home Medications: Ambulatory Orders Medication Instructions Recorded aspirin 81 mg tablet,delayed 81 mg PO QDAY 12/27/17 release bupropion HCl 300 mg 24 hr tablet, 300 mg PO QAM 12/27/17 extended release cholecalciferol (vitamin D3) 25 1,000 unit PO QDAY 12/27/17 mcg (1,000 unit) tablet estradiol 1 vag ring VAGINAL [id number] 12/27/17 lactobacillus combination no.8 3 3,000 mmu cells PO QDAY 12/27/17 billion cell capsule multivitamin 1 tab PO QDAY 12/27/17 omega-3 fatty acids 1,000 mg 1,000 mg PO BID cap 12/27/17 capsule pantoprazole 40 mg tablet,delayed 40 mg PO QDAY 12/27/17 release polyethylene glycol 3350 17 17 g PO QDAY PRN g 12/27/17 gram/dose oral powder sertraline 100 mg tablet 100 mg PO QHS tab 12/27/17 diclofenac sodium 1 % topical gel 2 g TOPICAL ONCE PRN 12/30/17 olopatadine 0.6 % nasal spray 2 spray INTRANASAL QDAY g 12/30/17 azithromycin 250 mg tablet 250 mg PO .COMPLEX 01/31/19 fluticasone propionate 50 2 spray INTRANASAL QDAY g 01/31/19 mcg/actuation nasal spray,suspension acetaminophen 500 mg tablet 1,000 mg PO Q6H PRN tab 06/30/20 colchicine 0.6 mg tablet 0.6 mg PO DAILY 06/30/20 fexofenadine 60 mg tablet 60 mg PO BID 06/30/20 furosemide 20 mg tablet 20 mg PO DAILY 06/30/20 gabapentin 100 mg capsule 200 mg PO BID cap 06/30/20 metoprolol tartrate 25 mg tablet 25 mg PO BID 06/30/20 potassium chloride 20 mEq 20 meq PO DAILY 06/30/20 tablet,extended release Acetaminophen [Tylenol Extra 500 - 1,000 mg PO Q6H PRN PRN 07/15/20 Strength] - Allergies Allergies/Adverse Reactions: Allergies Cephalosporins Allergy (Severe, Verified 01/28/20 10:03) Rash amoxicillin Adverse Reaction (Severe, Verified 01/28/20 10:03) Rash clindamycin Adverse Reaction (Severe, Verified 01/28/20 10:03) Unknown nifedipine [From Adalat] Adverse Reaction (Severe, Verified 01/28/20 10:03) Vomiting, Hypotension nitrofurantoin [From Macrobid] Adverse Reaction (Severe, Verified 01/28/20 10:03) N/V Sulfa (Sulfonamide Antibiotics) Adverse Reaction (Severe, Verified 01/28/20 10:03) Rash montelukast [From Singulair] Adverse Reaction (Unknown, Verified 01/28/20 10:03) Unknown naproxen [From Aleve] Adverse Reaction (Unknown, Verified 01/28/20 10:03) Unknown - Sleep Disorder Evaluation Hx of Sleep Apnea: No Do you snore loudly (louder than talking or can be heard through closed doors)?: No Do you often feel tired/ fatigued/ sleepy during daytime?: No Has anyone observed you stop breathing during sleep?: No History of Hypertension (for STOP score): No STOP Results: Negative Advanced Directives - Advanced Directives Power of Maid Cleaning Cooking: Yes Living Will: Yes Advance Directives Information Provided: No Advance Directives on File: Yes DNR Order?:: No - MOLST See MOLST form: No Past Medical History - Covid-19 Screening Fever: No Unexplained muscle aches: No Current respiratory symptoms: No Upper respiratory infections symptoms: No Gastro-intestinal symptoms: No Lje-Eurv-Gicpuq symptoms: No Has tested positive for COVID-19 in last 30 days: No Had contact w/person w/symptoms or Covid-19 (+) last 14 days: No Has High Risk Exposures ID'd by Health dept/Inf Control team: No 65 years or older:: No Lives in Assisted Living facility:: No Has a chronic lung disease or moderate to severe asthma:: No Has a serious heart condition:: Yes Immunocompromised:: Yes Severely obese (Body Mass Index of 40 or higher):: No Diabetic:: No Has chronic kidney disease undergoing dialysis:: No Has liver disease:: No - Past Medical Illness Medical History: Past Medical History (Last Reviewed 01/28/20 @ 10:03 by Michelle Sommer) Thoracic aortic aneurysm without rupture (Chronic) I71.2 Essential hypertension (Chronic) I10 Hyperlipidemia (Chronic) E78.5 Nonrheumatic mitral (valve) prolapse (Acute) I34.1 Nonrheumatic aortic (valve) insufficiency (Acute) I35.1 Bicuspid aortic valve (Chronic) Q23.1 Depression F32.9 Fibromyalgia M79.7 - Past Surgical History Surgical History: Past Surgical History (Last Updated 06/30/20 @ 07:44 by Michelle Sommer) History of ascending aortic replacement (Chronic) Onset Date: ~06/16/20 Z95.828 28mm Hemashield History of aortic valve replacement with bioprosthetic valve (Chronic) Onset Date: ~06/16/20 Z95.3 #23 Inspiris Valve History of laparoscopic cholecystectomy Z90.49 History of total hysterectomy Z90.710 - Family History Summary Family History: Family History (Last Reviewed 01/28/20 @ 10:03 by Michelle Sommer) Father Heart disease Mother Hypertension Social History - Smoking History Smoking Status: Never smoker Hx Tobacco Use: No Hx Smoking Exposure: No - Alcohol Use Alcohol Usage: No - very limited once or twice a year. - Substance Abuse Hx Substance Use: No - Occupation Occupation (List type of work in comments):: Employed - [employer] [facility] [employer] Hours worked per day:: 24 - part-time hours/working from home - Hobbies, Recreation, Social Activities Hobbies: Other - gardening, waterfalls, herbs, rubber stamps, activity cards, arts crafts, knitting and crocheting, and dance. Recreational Activities: I am able to engage in a few activities Social Environment - Status Marital Status: - Current Living Arrangements Living Environment:: Spouse - Children How many children do you have?: 1 - age 26 Do any of your children live nearby?: Yes - Safety Do you feel safe in your surroundings?: Yes - Assistance Do you need any assistance at home?: None Review of Systems - Review of Systems Hints: Right click = Denies (Slash). Left click = Reports (Fairchance) Review of Present Symptoms: Reports: Shortness of Breath with Exertion, Operative Discomfort - chest wall on the right side near breast still sore and tender, Wound Healing, Fatigue, Appetite - Normal, Appetite - Special Diet - low sodium, low fat, 2,000mg sodium, increase proteins due to anemia. Numbers are improving int he right direction., Sleep - Normal. Denies: Shortness of Breath at Rest, Dizziness/Lightheadedness, Heart Arrhythmia/Irregularities, Sexual Changes - Pain Is Patient Pain Free?: No Pain Location: chest Pain Level: 10 - chest wall are at the site of incision from surgery. Risk Factor Assessment - Chief Complaint Chief Complaint: S/P AVR 06/17/2020 - Vital Signs Temperature: 97.3 F Respiratory Rate: 16 Pulse Ox: 96 Blood Pressure: 118/60 - Pulse Pulse Rate: 76 Pulse Rhythm: Regular - Hypertension How long have you been treated?: 40 On medication(s)?: yes age 26. Blood Pressure Sitting - Left Arm: 118/60 - Blood Cholesterol/Lipids Total Cholesterol (mg/dL) Goal = less than 200 mg/dL: 144 - 07/07/2020 HDL Cholesterol (mg/dL) Goal = less than 40 mg/dL: 73 LDL Cholesterol (mg/dL) Goal = less than 70 mg/dL: 57 Triglycerides (mg/dL) Goal = less than 150 mg/dL: 71 - Obesity Height: 5 ft 5 in Weight:: 128 lb 11.2 oz Weight in Pounds: 128.7 lbs Weight Source: Standing Scale Body Mass Index (BMI): 21.4 Nutritional Referral for Obesity: No - Physical Inactivity Physical Inactivity: Reg Exercise 30 min/day, Recreational activity - walking - Risk Stratification Risk Guidelines: Lowest Risk: Risk Factor for Smoking, Risk Factor for Dyslipidemia, Risk Factor for Diabetes, Risk Factor for Obesity, Risk Factor for Hypertension, Risk Factor for Sedentary Lifestyle, Risk Factor for Depression - For Smoking Smoking Risk Guidelines: Smoking Low Risk: None or quit greater than 6 months ago. Smoking Moderate Risk: Smoker or quit 6 months or less ago. Smoking High Risk: Smoker - For Dyslipidemia Dyslipidemia Risk Guidelines: Low Risk: Moderate Risk: High Risk: 15-25% fat 25.1-29% fat >/= 30% fat. <7% sat fat 7-9% sat fat >9% sat fat. <150 mg chol 150-299 mg chol >/= 300 mg chol. LDL <100 LDL 100-129 LDL >/= 130. Chol/HDL ratio <5.0 Chol/HDL ratio 5.0-6.0 Chol/HDL ratio >6.0. Triglycerides <100 Triglycerides 100-149 Triglycerides >/= 150 - For Diabetes Mellitus Diabetes Risk Guidelines: Diabetes Low Risk: HgA1c <6.5% and/or FBG <120. Diabetes Moderate Risk: HgA1c 6.6-7.9% and/or FBG 120-180. Diabetes High Risk: HgA1c >/= 8% and/or FBG >180 - For Obesity/Overweight Obesity/Overweight Risk Guidelines: Obesity Low Risk: BMI <25.0. Obesity Moderate Risk: BMI 25-29.9. Obesity High Risk: BMI >/= 30.0 - For Hypertension Hypertension Risk Guidelines: Hypertension Low Risk: Systolic <120 and Diastolic <80. Hypertension Moderate Risk: Systolic 120-139 and Diastolic 80-89. Hypertension High Risk: Systolic >/= 140 and Diastolic >/= 90 - For Sedentary Lifestyle Sedentary Lifestyle Risk Guidelines: Sedentary Lifestyle Low Risk: >/= 1,500 kcal/week. Sedentary Lifestyle Moderate Risk: 700-1,499 kcal/week. Sedentary Lifestyle High Risk: < 700 kcal/week - For Depression Depression Risk Guidelines: Depression Low Risk: Not clinically depressed. Depression Moderate Risk: Mildly depressed. Depression High Risk: Clinically depressed - Family History Family History: Family History (Last Reviewed 01/28/20 @ 10:03 by Michelle Sommer) Father Heart disease Mother Hypertension Motivation - Motivation to Participate On a scale of 1 to 10, how prepared are you to commit to attending program?: 10 What do you see as barriers to successfully being able to complete the program?: none What do you see as the benefits of succesfully completing the program? In other words, what do you hope to get out of participating in the program?: getting stronger, more energy, minimize shortness of breath Are there issues you are dealing with that will interfere with completing the program?: still cant drive yet. Do you have a spouse or signficant other, family or friends who will help support you to complete the program?: Yes
[2020-07-15 10:57] VITALS: BP 118/60; PULSE 76; RESP 16; TEMP 36.3; O2SAT 96; BMI 21.4
[2020-07-15 11:34] VITALS: BP 118/60; BMI 21.4
== END ==
PROVIDERS: PCP Family Medicine; Referring Provider Internal Medicine Cardiovascular Disease; Visit Provider Internal Medicine Cardiovascular Disease
DX: I10 Essential (primary) hypertension (principal); E78.5 Hyperlipidemia, unspecified; Z95.3 Presence of xenogenic heart valve; Z68.21 Body mass index [BMI] 21.0-21.9, adult

== ENCOUNTER 2020-07-25 11:30 | Outpatient (RCR) | payer OTHER, SELFPAY ==
[2020-07-15 10:57] VITALS: BMI 21.4
[2020-07-15 11:34] VITALS: BMI 21.4
--- NOTE | 2020-07-18 10:48 | EKG12_ITS ---
Test Reason : S/P VALVE REPLACEMEN Blood Pressure : / mmHG Vent. Rate : 094 BPM Atrial Rate : 094 BPM P-R Int : 198 ms QRS Dur : 094 ms QT Int : 338 ms P-R-T Axes : 067 -62 148 degrees QTc Int : 422 ms Normal sinus rhythm Left anterior fascicular block Septal infarct , age undetermined , cannot be excluded ST & T wave abnormality, consider inferior ischemia ST & T wave abnormality, consider anterolateral ischemia Abnormal ECG Confirmed by ESTHELA HAYS, HAL ([id number]), technical editor AARON HATHAWAY ([id number] on 07/22/2020 12:26:14 PM Referred By: Hal Proctor Confirmed By:HAL PROCTOR MD
== END 2020-07-27 23:59 ==
LOC: CR 11:30
PROVIDERS: PCP Family Medicine; Referring Provider Internal Medicine Cardiovascular Disease; Visit Provider Internal Medicine Cardiovascular Disease
DX: Z95.3 Presence of xenogenic heart valve (principal)
CPT/HCPCS: 93005; 93798

== ENCOUNTER 2020-08-06 09:30 | Outpatient (RCR) | payer OTHER, SELFPAY ==
[2020-07-15 10:57] VITALS: BMI 21.4
[2020-07-15 11:34] VITALS: BMI 21.4
[2020-07-30 15:28] VITALS: BMI 21.2
== END 2020-08-06 23:59 | disposition home or self-care (01) ==
LOC: NS 09:30
PROVIDERS: PCP Family Medicine; Visit Provider Internal Medicine Cardiovascular Disease
DX: Z71.3 Dietary counseling and surveillance (principal); I10 Essential (primary) hypertension; E78.5 Hyperlipidemia, unspecified; Z95.3 Presence of xenogenic heart valve
CPT/HCPCS: 97802

== ENCOUNTER 2020-08-22 11:30 | Outpatient (RCR) | payer OTHER, SELFPAY ==
[2020-07-15 10:57] VITALS: BMI 21.4
[2020-07-15 11:34] VITALS: BMI 21.4
--- NOTE | 2020-08-14 07:01 | CR.ITP_ITS ---
Exercise - 30-day Assessment - Visit Date of Eval: 08/14/20 Session #:: 12 - 100% compliance to date - Physician Prescribed Exercise Modalities: Treadmill, Airdyne, NuStep Frequency: 3x/week for 12 weeks [36 sessions] Intensity: 60-80% of age predicted maximum heart rate reserve Current METSs:: 4.5 increase from 3.0 Target Heart Rate:: 101-132 Current RPE:: 13-15 Maximum Excercise HR:: 100 Resting Blood Pressure: 118/64 Maximum Exercise Blood Pressure: 152/80 EKG Type: NSR to sinus tachy with T wave inversion rare PAC - Outcomes & Goals Goals:: Verbalizes understanding of THR, RPE & goal METS by session 6, Documents in home exercise log/reports 30 min aerobic 5 day/wk by DC, Demonstrates accurate pulse taking by DC - Intervention & Plan Exercise Program Goals: Instruct on personal THR & RPE, Instruct on MET level & personal MET goal, Show patient to take own pulse /validate performance until accurate, Instruct on home exercise - 30-day Reassessments 30 day Reassessments:: Progressing - Physical Activity Home Exercise Physical Activity - Home Exercise: Safe Exercise, Warm-up, Self-monitoring, Cool-Down, Home Exercise > 30 min Daily, Sitting Time <3 hours/daily - Outcomes & Goals Outcomes/Goals: Demonstrates correct Warm-up/exercise Cool-Down (S3) if = 2.5 METs, Verbalizes symptoms of exercise intolerance by Session 3 (S3), Demonstrate safe equipment use (S3) & follows exercise prescrition (6) - Intervention & Plan Plan/Intervention: Instruct warm-up & cool-down if exercising at > 2 METs, Instruct on symptoms of exercise intolerance & actions to take, Instruct & monitor on saf, Assess intial functional capacity & safety risk - 30-day Reassessments 30 day Reassessments:: Progressing Nutrition - 30-Day Assessment - Program Goals Nutrition Program Goals: LDL <100 optimal. 100 - 129 Near optimal. 130 - 159 Borderline High. 160 - 189 High. Total Cholesterol <200 desirable. 200 - 239 Borderline High. >/= 240 High. HDL < 40 Low >/=60 High. Triglycerides <150 desirable. <199 optimal. VlDL 5 - 40. HgbA1C <7%. BMI <25 Patient has diagnosis of Hyperlipidemia (ICD E78)?: Yes - Visit Date of Assessment:: 08/14/20 Session #:: 12 - no recent labs drawn - Cholesterol/Lipids Determine presence & major risk factors that modify LDL goal: Hypertension or hypertensive medication, Age men > 45 years; women >/= 55 years Outcomes/Goals: Pt IDs own risk factors & lifestyle modifications by Session 10, Verbalizes symptoms of angina & response by session 3., Pt independently manages Intervention/Plan: Instruct on personal lipid levels & lipid goals/NCEP guidelines, Instruct on cholesterol Referral to dietitian:: No - Seen Nutritional Services on 08/06/2020 30-day Reassessments:: Progressing - Diabetes (Other Core Measures) Diabetes Type: Not Applicable - Weight Mgt (Other Care) Not Applicable: Yes Height: 5 ft 5 in Weight:: 130 lb BMI: 21.6 Diagnosis Overweight/Obesity BMI> 30% ICD-10 E66: No Diagnosis High BMI/Morbid Obesity BMI> 35% ICD-10 Z68: No Outcomes/Goals: Pt sets, maintains & shows weight loss goal & trend during rehab Intervention/Plan: Instruct on ideal BMI & set weight loss goal w/patient 30 day Reassessments:: Progressing - Healthy Eating Habits Will attend diet classes:: Yes Outcomes/Goals:: Consume diet rich in vegs,fruits,whole grain/high fiber,fish,lean meat, Limit sat/trans fats,cholesterol & added salts & sugars Intervention/Plan:: Assess current eating habits 30-day Reassessments:: Progressing Medical- 30-Day Assessment - Visit Date of Eval: 08/14/20 Session #:: 12 - Medication Compliance Preventative Medication(s):: Aspirin, Statin/lipid, Beta tiffany H/O mental health issues: depression, anxiety, or addiction?: Yes Doesn?t believe in the benefits of treatment?: No Believes medications are unnecessary or harmful?: No Has a concern about medication side effects?: No Expresses concern over the cost of medications?: No Outcomes/Goals: Verbalizes medications,desired effect & common side effects @ DC, Pt self-reports following medication regimen, Keeps card in wallet w/medications listed by DC Interventions/plans: Instruct on medication effects & side effects, Review medication list w/patient every two weeks, Instruct importance of taking meds as ordered & assist problem solving 30-day Reassessments:: Progressing - Tobacco Use Tobacco Use: Non-smoker - Hypertension Hypertension Diagnosis:: Hypertension ICD-10 I10 Resting Blood Pressure:: 118/64 [place] [employer] Hypertension Guidelines: [place] [employer] Hypertension Guidelines. Normal BP Less than 120/80 Peak Exercise Blood Pressure:: 152/80 Outcomes/Goals: Able to verbalize/achieve optimal blood pressure <130/80, Incorporates diet changes & exercise for blood pressure control by DC Interventions/plan: Instruct on optimal blood pressure, hypertension & medications, Instruct on effects of sodium, alcohol, stress, exercise &hypertension 30 day Reassessments:: Progressing - Tobacco Cessation Referral Smoking Cessation Referral:: No Individual Education/Counseling:: No Education Schedule Given:: Yes Psychosocial - 30-Day Assess - VIsit Date of Eval: 08/14/20 Session #:: 12 Not Applicable: No History of previous Mental disease:: Yes History of Emotional Disorders: Depression - on Wellbutrin - Target Goals Target Goals: Assess presence or absence of depression. Using a valid screening tool, maximizes coping skills. Positive support system - Psychosocial Test Tool Used:: PHQ-9 Questionnaire phq-9 Severity: Severity. 1-4 Minimal Depression. 5-9 Mild Depression. 10-14 Moderate Depression. 15-19 Moderately Sever Depression. 20-27 Severe Depression. Rule: - Referral to Behavioral Health PS - Interventions: Yes Attend Stress Management Classes, No Referral to Behavioral Health if PHQ-9 score >9:, No Referral to [facility], No Referral to Physician if PHQ-9 if score is 5-9: - Outcomes/Goals: See list Psychosocial Outcomes/Goals:: ID's personal stressors & 2 strategies to manage stress by discharge - Intervention/Plan: See List Interventions/Plan:: Assess stressors,coping strategies & signs of derpression on admission, Instruct/assist pt to develop coping & personal stress Mgt strategies, Instruct patient to recognize signs & symptoms of depression, Instruct patient to recog - 30-day Reassessments: 30 day Reassessments:: Progressing Patient Health Questionnaire 30-Day Re-eval Assessment 1. Little interest or pleasure in doing things: Several days 2. Feeling down, depressed, or hopeless: Not at all 3. Trouble falling or staying asleep, or sleeping too much: More than half the days 4. Feeling tired or having little energy: Not at all 5. Poor appetite or overeating: Not at all 6. Feeling bad about yourself -- or that you are a failure or have let yourself or your family down: Not at all 7. Trouble concentrating on things, such as reading the newspaper or watching television: Several days 8. Moving or speaking so slowly that other people could have noticed. Or the opposite - being so fidgety or restless that you have been moving around a lot more than usual: Not at all 9. Thoughts that you would be better off , or of hurting yourself in some way: Not at all Total Score: 4 Self-Efficacy 30-Day Re-eval Assessment We would like to know how confident you are in doing certain activities. Please select your confidence level for:: Select your confidence level for the following using the scale 1-10 where 1 is not at all confident and 10 is totally confident. Your score is the average of all 6 responses. Fatigue: How confident are you that you can keep the fatigue caused by your disease from interfering with the things you want to do? Select Number: 5 Physical Discomfort or Pain: How confident are you that you can keep the physical discomfort or pain of your disease from interfering with the things you want to do? Select Number: 7 Emotional Distress: How confident are you that you can keep the emotional distress caused by your disease from interfering with the things you want to do? Select Number: 10 Other Symptoms or Health Problems: How confident are you that you can keep other symptoms or health problems from interfering with the things you want to do? Select Number: 9 Different Tasks and Activities: How confident are you that you can do the different tasks and activities needed to manage your health condition so as to reduce your need to see a doctor? Select Number: 9 Medication: How confident are you that you can do things other than just taking medication to reduce how much your illness affects your everyday life? Select Number: 9 Total Score:: 8
[2020-08-14 07:10] VITALS: BP 118/64; BP 152/80; BMI 21.6
== END 2020-08-24 23:59 ==
LOC: CR 11:30
PROVIDERS: PCP Family Medicine; Referring Provider Internal Medicine Cardiovascular Disease; Visit Provider Internal Medicine Cardiovascular Disease
DX: Z95.3 Presence of xenogenic heart valve (principal)
CPT/HCPCS: 93798

== ENCOUNTER 2020-09-24 11:30 | Outpatient (RCR) | payer OTHER, SELFPAY ==
[2020-07-30 15:28] VITALS: BMI 21.2
[2020-08-14 07:10] VITALS: BMI 21.6
[2020-08-25 00:33] VITALS: BP 118/64; BP 152/80
--- NOTE | 2020-09-12 09:03 | CR.ITP_ITS ---
Exercise - 60-day Assessment - Visit Date of Eval: 09/12/20 Session #:: 24 - Physician Prescribed Exercise Modalities: Treadmill, NuStep Frequency: 3x/week for 12 weeks [36 sessions] Intensity: 60-80% of age predicted maximum heart rate reserve Current METSs:: 4.5 Target Heart Rate:: 101-132 Current RPE:: 14-15 Maximum Excercise HR:: 129 Resting Blood Pressure: 90/50 Maximum Exercise Blood Pressure: 150/90 EKG Type: NSR to sinus tachy - Outcomes & Goals Goals:: Verbalizes understanding of THR, RPE & goal METS by session 6, Documents in home exercise log/reports 30 min aerobic 5 day/wk by DC, Demonstrates accurate pulse taking by DC, Other additional outcome/goals: see below - Intervention & Plan Exercise Program Goals: Instruct on personal THR & RPE, Instruct on MET level & personal MET goal, Show patient to take own pulse /validate performance until accurate, Instruct on home exercise, Other additional plan/int - 30-day Reassessments 30 day Reassessments:: Progressing - Physical Activity Home Exercise Physical Activity - Home Exercise: Safe Exercise, Warm-up, Self-monitoring, Cool-Down, Home Exercise > 30 min Daily, Sitting Time <3 hours/daily - Outcomes & Goals Outcomes/Goals: Demonstrates correct Warm-up/exercise Cool-Down (S3) if = 2.5 METs, Verbalizes symptoms of exercise intolerance by Session 3 (S3), Demonstrate safe equipment use (S3) & follows exercise prescrition (6), Other: See below - Intervention & Plan Plan/Intervention: Instruct warm-up & cool-down if exercising at > 2 METs, Instruct on symptoms of exercise intolerance & actions to take, Instruct & monitor on saf, Assess intial functional capacity & safety risk, Other See below - 30-day Reassessments 30 day Reassessments:: Progressing Nutrition - 60-Day Assessment - Program Goals Nutrition Program Goals: LDL <100 optimal. 100 - 129 Near optimal. 130 - 159 Borderline High. 160 - 189 High. Total Cholesterol <200 desirable. 200 - 239 Borderline High. >/= 240 High. HDL < 40 Low >/=60 High. Triglycerides <150 desirable. <199 optimal. VlDL 5 - 40. HgbA1C <7%. BMI <25 Patient has diagnosis of Hyperlipidemia (ICD E78)?: Yes - Visit Date of Assessment:: 09/12/20 Session #:: 24 - Cholesterol/Lipids Determine presence & major risk factors that modify LDL goal: Hypertension or hypertensive medication Outcomes/Goals: Pt IDs own risk factors & lifestyle modifications by Session 10, Verbalizes symptoms of angina & response by session 3., Pt independently manages, Other Additional Outcomes/Goals: Intervention/Plan: Advocate for lipid panel cholesterol medication if applicable, Instruct on personal lipid levels & lipid goals/NCEP guidelines, Instruct on cholesterol, Other additional plan/int 30-day Reassessments:: Progressing - Diabetes (Other Core Measures) Diabetes Type: Not Applicable - Weight Mgt (Other Care) Height: 5 ft 5 in Weight:: 58.967 kg BMI: 21.6 Outcomes/Goals: Pt sets, maintains & shows weight loss goal & trend during rehab, Other additional outcomes/goals Intervention/Plan: Instruct on ideal BMI & set weight loss goal w/patient, Assist pt to ID & incorporate diet changes for weight loss by S9, Refer to Structured Weight Loss program as appropriate, Encourage goal of using 250- 300dcal per session for weight loss, Other additional plan/interventions 30 day Reassessments:: Progressing - Healthy Eating Habits Will attend diet classes:: Yes Outcomes/Goals:: Consume diet rich in vegs,fruits,whole grain/high fiber,fish,lean meat, Limit sat/trans fats,cholesterol & added salts & sugars, Other additional outcome/goals: Intervention/Plan:: Assess current eating habits, Other Additional plan/interventions 30-day Reassessments:: Progressing - Education Gave educational materials for:: Signs & symptoms of hypoglycemia, Signs & symptoms of hyperglycemia, Relate diabetes to coronary artery disease, Healthy eating Medical- 60-Day Assessment - Visit Date of Eval: 09/12/20 Session #:: 24 - Medication Compliance Preventative Medication(s):: Aspirin, Statin/lipid, Beta tiffany H/O mental health issues: depression, anxiety, or addiction?: Yes Doesn?t believe in the benefits of treatment?: No Believes medications are unnecessary or harmful?: No Has a concern about medication side effects?: No Expresses concern over the cost of medications?: No Outcomes/Goals: Verbalizes medications,desired effect & common side effects @ DC, Pt self-reports following medication regimen, Keeps card in wallet w/medications listed by DC, Other additional outcome/goals: Interventions/plans: Instruct on medication effects & side effects, Review medication list w/patient every two weeks, Instruct importance of taking meds as ordered & assist problem solving, Other additional 30-day Reassessments:: Progressing - Tobacco Use Tobacco Use: Non-smoker - Hypertension Hypertension Diagnosis:: Hypertension ICD-10 I10 Resting Blood Pressure:: 90/50 - . [place] [employer] Hypertension Guidelines: [place] [employer] Hypertension Guidelines. Normal BP Less than 120/80. Elevated BP 120/80. Hypertension Stage 1: BP 130-139/80-89. Hypertesnion Stage 2: BP 140 or higher/90 or higher. Hypertension Crisis: BP higher than 180/120 Peak Exercise Blood Pressure:: 150/90 Outcomes/Goals: Able to verbalize/achieve optimal blood pressure <130/80, Incorporates diet changes & exercise for blood pressure control by DC, Other additional outcomes/goals Interventions/plan: Instruct on optimal blood pressure, hypertension & medications, Instruct on effects of sodium, alcohol, stress, exercise &hypertension, Other additional plan/interventions 30 day Reassessments:: Progressing - Tobacco Cessation Referral Smoking Cessation Referral:: No Individual Education/Counseling:: No Education Schedule Given:: Yes Psychosocial - 60-Day Assess - VIsit Date of Eval: 09/12/20 Session #:: 24 History of previous Mental disease:: Yes History of Emotional Disorders: Depression - on wellbutrin - Target Goals Target Goals: Assess presence or absence of depression. Using a valid screening tool, maximizes coping skills. Positive support system - Psychosocial Test phq-9 Severity: Severity. 1-4 Minimal Depression. 5-9 Mild Depression. 10-14 Moderate Depression. 15-19 Moderately Sever Depression. 20-27 Severe Depression. Rule: - Outcomes/Goals: See list Psychosocial Outcomes/Goals:: ID's personal stressors & 2 strategies to manage stress by discharge, Other Additional outcome/goals: - Intervention/Plan: See List Interventions/Plan:: Assess stressors,coping strategies & signs of derpression on admission, Instruct/assist pt to develop coping & personal stress Mgt strategies, Refer to Behavioral Health if appropriate, Refer to Physician if appropriate, Instruct patient to recognize signs & symptoms of depression, Instruct patient to recog, Other additional plan/intervention - 30-day Reassessments: 30 day Reassessments:: Progressing Patient Health Questionnaire 60-Day Re-eval Assessment 1. Little interest or pleasure in doing things: Several days 2. Feeling down, depressed, or hopeless: Not at all 3. Trouble falling or staying asleep, or sleeping too much: More than half the days 4. Feeling tired or having little energy: Not at all 5. Poor appetite or overeating: Not at all 6. Feeling bad about yourself -- or that you are a failure or have let yourself or your family down: Not at all 7. Trouble concentrating on things, such as reading the newspaper or watching television: Several days 8. Moving or speaking so slowly that other people could have noticed. Or the opposite - being so fidgety or restless that you have been moving around a lot more than usual: Not at all 9. Thoughts that you would be better off , or of hurting yourself in some way: Not at all Total Score: 4 Self-Efficacy 60-Day Re-eval Assessment We would like to know how confident you are in doing certain activities. Please select your confidence level for:: Select your confidence level for the following using the scale 1-10 where 1 is not at all confident and 10 is totally confident. Your score is the average of all 6 responses. Fatigue: How confident are you that you can keep the fatigue caused by your disease from interfering with the things you want to do? Select Number: 5 Physical Discomfort or Pain: How confident are you that you can keep the physical discomfort or pain of your disease from interfering with the things you want to do? Select Number: 7 Emotional Distress: How confident are you that you can keep the emotional distress caused by your disease from interfering with the things you want to do? Select Number: 10 Other Symptoms or Health Problems: How confident are you that you can keep other symptoms or health problems from interfering with the things you want to do? Select Number: 9 Different Tasks and Activities: How confident are you that you can do the different tasks and activities needed to manage your health condition so as to reduce your need to see a doctor? Select Number: 9 Medication: How confident are you that you can do things other than just taking medication to reduce how much your illness affects your everyday life? Select Number: 9 Total Score:: 8
[2020-09-12 09:10] VITALS: BP 150/90; BP 90/50; BMI 21.6
== END 2020-09-24 23:59 ==
LOC: CR 11:30
PROVIDERS: PCP Family Medicine; Referring Provider Internal Medicine Cardiovascular Disease; Visit Provider Internal Medicine Cardiovascular Disease
DX: Z95.3 Presence of xenogenic heart valve (principal)
CPT/HCPCS: 93798

== ENCOUNTER 2020-10-08 11:30 | Outpatient (RCR) | payer OTHER, SELFPAY ==
[2020-07-30 15:28] VITALS: BMI 21.2
[2020-09-12 09:10] VITALS: BMI 21.6
[2020-09-25 00:41] VITALS: BP 150/90; BP 90/50
== END 2020-10-24 23:59 ==
LOC: CR 11:30
PROVIDERS: PCP Family Medicine; Referring Provider Internal Medicine Cardiovascular Disease; Visit Provider Internal Medicine Cardiovascular Disease
DX: Z95.3 Presence of xenogenic heart valve (principal)
CPT/HCPCS: 93798

== ENCOUNTER → 2021-01-13 12:22 | Outpatient (CLI) | payer OTHER, SELFPAY ==
[2020-07-30 15:28] VITALS: BMI 21.2
[2020-09-12 09:10] VITALS: BMI 21.6
--- NOTE | 2021-01-13 12:25 | BI_ITS ---
MAMMOGRAPHY - BILATERAL SCREENING REASON FOR EXAM: Female, 65 years old. Routine annual screening examination. PERTINENT HISTORY: Non-contributory. Remote right stereotactic breast biopsy. TECHNIQUE: Digital bilateral breast sal (3D mammographic acquisition) in the CC and MLO projections. 2-D mediolateral oblique (MLO) and craniocaudad (CC) views of both breasts were obtained. CAD: Full Field Digital Mammography with Computer Added Detection was performed. COMPARISON: Comparison is made with prior study dated 01/09/2020 and 09/11/2018. FINDINGS: Breast Composition: The breasts are heterogeneously dense, which may obscure small masses. There are no dominant masses or suspicious calcifications. No other significant abnormalities are identified. There has been no significant change since the prior study. BI/SCRN MAMM (CAD)W/SAL BILAT IMPRESSION: Stable bilateral screening mammogram. Yearly follow-up mammogram recommended. (A) ASSESSMENT CATEGORY: BIRADS Category 1: Negative. A letter regarding these results will be sent to the patient by the facility within 30 days. Approximately 10% of breast cancers are not detected by mammography. A normal mammogram should not delay biopsy of a clinically suspicious abnormality. [id number] Electronically Signed: Krishna Robins MD at 13:38 EDT , Service support ,
--- NOTE | 2021-01-13 12:28 | BD_ITS ---
STUDY: DUAL ENERGY X-RAY ABSORPTIOMETRY / DXA REASON FOR EXAM: Female, 65 years old. [id number]. Patient is postmenopausal. TECHNIQUE: Bone Mineral Density (BMD) measurements of lumbar spine and bilateral hips were obtained. COMPARISON: Comparison is made with prior study 04/01/2010. FINDINGS: Lumbar Spine (L1-L4): g/cm2 (0.809) / T-score (-2.2) / Z-score (-0.4) Findings are suggestive of osteopenia with a high fracture risk. Left Femur Total: g/cm2 (0.749) / T-score (-1.6) / Z-score (0.4) Left Femoral Neck: g/cm2 (0.586) / T-score (-2.4) / Z-score (-0.9) Right Femur Total: g/cm2 (0.718) / T-score (-1.8) / Z-score (-0.6) Right Femoral Neck: g/cm2 (0.582) / T-score (-2.4) / Z-score (-0.9) The T-Scores on the most recent prior examination were: Lumbar Spine (L1-L4): There has been worsening of bone density since the previous examination. Left Femur Total: which represents a worsening of 14%. Right Femur Total: which represents a worsening of 15.5%. BD/Dexa Bone Density Study IMPRESSION: The patient is considered osteopenic as outlined below according to World Dylan Organization (WHO) criteria with a high fracture risk. There has been worsening of bone density since the previous examination. Reference Information: The T-score is the number of standard deviations above or below the standard which is normal for young adults at their peak bone mineral density. The World Health Organization (WHO) interprets the T-scores as follows: Above -1 Normal bone density Between -1 and -2.5 Osteopenia Equal to / or below -2.5 Osteoporosis As a practical clinical guideline, osteopenia may be graded as follows: Mild -1 through -1.5 Moderate -1.6 through -2.0 Severe -2.1 through -2.4 The Z-score is the number of standard deviations above or below age-matched controls. A Z-score of less than -1.5 would be considered abnormal. References: 1. NIH Osteoporosis and Related Bone Diseases www osteo.org 2. International Society for Clinical Densitometry www iscd.org 3. National Osteoporosis Foundation www nof.org Electronically Signed: Krishna Robins MD at 14:27 EDT , Service support ,
== END ==
PROVIDERS: PCP Family Medicine; Referring Provider Obstetrics & Gynecology; Visit Provider Obstetrics & Gynecology
DX: N95.1 Menopausal and female climacteric states (principal); Z12.31 Encounter for screening mammogram for malignant neoplasm of breast
CPT/HCPCS: 77063; 77067; 77080

== ENCOUNTER → 2021-01-15 10:28 | Outpatient (CLI) | payer OTHER, SELFPAY ==
[2020-07-30 15:28] VITALS: BMI 21.2
[2020-09-12 09:10] VITALS: BMI 21.6
--- NOTE | 2021-01-15 10:30 | US_ITS ---
STUDY: THYROID ULTRASOUND REASON FOR EXAM: Female, 65 years old. Nodule right mid thyroid TECHNIQUE: Ultrasound evaluation of the thyroid was performed with real-time and static porter-scale imaging. COMPARISON: None. FINDINGS: RIGHT LOBE: The right lobe of the thyroid gland measures 4.9 cm x 1.5 cm x 1.8 cm. There is a homogeneous echotexture. There are 5 solid/cystic nodules throughout the right lobe. The largest measures 1.5 cm -1 cm. This is in the midportion of the right lobe. There is evidence of perinodular and intralobular nodular vascularity. LEFT LOBE: The left lobe of the thyroid gland measures 3.47 x 1.4 cm x 1.9 cm. There is a homogeneous echotexture. There is a 1.5 cm x 1 cm x 1 cm solid/cystic nodule with heterogeneous appearance in the superior pole. There is evidence of apparent nodular and internodular flow. A second nodule measuring 1.3 cm x 1 cm x 0.9 cm is seen in the inferior pole. ISTHMUS: The isthmus measures 2 mm. There is a 7 mm x 4 mm x 3 mm hypoechoic solid nodule in the isthmus. The regional lymph nodes are normal. US/Thyroid IMPRESSION: Bilateral solid/cystic nodules as described. Correlation with a nuclear medicine thyroid uptake and scan is recommended. Electronically Signed: Krishna Robins MD at 13:29 EDT , Service support ,
== END ==
PROVIDERS: PCP Family Medicine; Referring Provider Family Medicine; Visit Provider Family Medicine
DX: E04.1 Nontoxic single thyroid nodule (principal)
CPT/HCPCS: 76536

== ENCOUNTER → 2021-01-28 08:14 | Outpatient (CLI) | payer OTHER, SELFPAY ==
[2020-07-30 15:28] VITALS: BMI 21.2
[2020-09-12 09:10] VITALS: BMI 21.6
--- NOTE | 2021-01-28 08:16 | NM_ITS ---
CLINICAL: 65-year-old female with history of thyroid nodularity. I-123 THYROID UPTAKE and SCAN COMPARISON: Thyroid ultrasound report 01/15/2021 FINDINGS: The patient was administered a 309 uCi I-123 capsule by mouth. The 4-hour I-123 radioactive iodine thyroidal uptake was calculated to be 7.6 % (normal 5 to 25 %). The 24-hour I-123 radioactive iodine thyroidal uptake was calculated to be 16.2 % (normal 5 to 40 %). The I-123 thyroid scan demonstrates homogeneous radiopharmaceutical concentration throughout both lobes of a vaguely U-shaped thyroid gland. There are no colloidal parenchymal hypofunctioning cold nodules noted in either lobe of the thyroid gland. NM/Thyroid Uptake Single or Mult IMPRESSION: 1. NORMAL 4- and 24-hour I-123 radioactive iodine thyroidal uptakes. 2. 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 (Polina et al, J Nucl Med 32: 1455, 1991). 3. No hypofunctioning-cold nodules are identified as described above. Electronically Signed: Brady Vega DO at 22:10 EDT Tel , Service support ,
== END ==
PROVIDERS: PCP Family Medicine; Referring Provider Family Medicine; Visit Provider Family Medicine
DX: E04.1 Nontoxic single thyroid nodule (principal)
CPT/HCPCS: 78012; A9516

== ENCOUNTER → 2021-01-29 08:12 | Outpatient (CLI) | payer OTHER, SELFPAY ==
[2020-09-12 09:10] VITALS: BMI 21.6
[2021-01-28 14:28] VITALS: BMI 21.2
[2021-01-29 09:29] LABS: AST(SGOT) 19 U/L (15-37); Alanine Aminotransfer ALT/SGPT 34 U/L (13-56); Albumin, Serum 3.7 g/dL (3.2-5.0); Alkaline Phosphatase 78 U/L (45-117); Cholesterol 224 mg/dL (200); Globulin 2.9 g/dL (2.2-4.2); High Density Lipoprotein 119 mg/dL; Protein, Total 6.6 g/dL (6.4-8.2); Triglycerides 55 mg/dL; Very Low Density Lipoprotein 11 mg/dL (5-40)
== END ==
PROVIDERS: PCP Family Medicine; Referring Provider Internal Medicine Cardiovascular Disease; Visit Provider Internal Medicine Cardiovascular Disease
DX: E78.00 Pure hypercholesterolemia, unspecified (principal); E78.5 Hyperlipidemia, unspecified; I10 Essential (primary) hypertension; I34.1 Nonrheumatic mitral (valve) prolapse; Z95.3 Presence of xenogenic heart valve; Z95.828 Presence of other vascular implants and grafts
CPT/HCPCS: 36415; 80061; 80076

== ENCOUNTER → 2021-02-13 10:49 | Outpatient (CLI) | payer OTHER, SELFPAY ==
[2020-09-12 09:10] VITALS: BMI 21.6
[2021-01-28 14:28] VITALS: BMI 21.2
--- NOTE | 2021-02-13 10:50 | ECHOD_ITS ---
Reason For Study: Valve Replacement Eval Procedure This was a 2D Doppler, Color Flow transthoracic echocardiogram. The study was technically difficult. Exam performed in department. Left Ventricle Normal LV size. Left ventricular systolic function is normal. The estimated ejection fraction is 65 %. No evidence for diastolic dysfunction. No regional wall motion abnormalities noted. Right Ventricle Normal RV size. Normal systolic function. Atria Normal left atrium. The right atrium is mildly enlarged. No doppler evidence for ASD. Mitral Valve There is no mitral annular calcification. Mild diffuse mitral valve thickening. Mild (1+) mitral valve insufficiency. Tricuspid Valve Normal tricuspid valve. Mild tricuspid valve insufficiency. Right ventricular systolic pressure estimated to be 18 mmHg. Aortic Valve Stable appearing bioprosthetic aortic valve apparatus. Pulmonic Valve The pulmonic valve is not well visualized. Trivial pulmonic valve insufficiency. Great Vessels Aortic root repair. Pericardium/Pleural No pericardial effusion. MMode/2D Measurements & Calculations LVIDd: 4.3 cm IVSd: 0.91 cm LVOT diam: 2.0 cm LVIDs: 2.3 cm LVPWd: 0.92 cm LVOT area: 3.1 cm2 RVDd: 3.1 cm FS: 46.0 % Ao root diam: 2.8 cm LAV(MOD-bp): 35.7 ml LVAd ap4: 18.8 cm2 LAV(MOD-bp) Indexed: 22.5 ml/m2 LVLd ap4: 6.0 cm LAV(MOD-sp2): 38.9 ml EDV(MOD-sp4): 48.0 ml LAV(MOD-sp4): 28.0 ml EDV(sp4-el): 49.9 ml LVAs ap4: 10.8 cm2 LVLs ap4: 5.1 cm ESV(MOD-sp4): 19.1 ml ESV(sp4-el): 19.3 ml EF(MOD-sp4): 60.3 % EF(sp4-el): 61.2 % SV(MOD-sp4): 28.9 ml SV(sp4-el): 30.5 ml LA A4 area: 11.5 cm2 LA dimension(2D): 3.0 cm RA A4 area: 13.0 cm2 Doppler Measurements & Calculations MV E max hadley: 57.0 cm/sec Lat Peak E' Hadley: 9.6 cm/sec Med Peak E' Hadley: 6.3 cm/sec MV A max hadley: 67.6 cm/sec E/E' lat: 5.9 E/E' med: 9.0 MV E/A: 0.84 Ao V2 max: 243.4 cm/sec LV V1 max: 124.7 cm/sec SV(LVOT): 70.5 ml Ao max P.7 mmHg LV V1 max P.2 mmHg Ao V2 mean: 168.8 cm/sec LV V1 mean P.1 mmHg Ao mean P.6 mmHg LV V1 mean: 82.3 cm/sec Ao V2 VTI: 45.6 cm LV V1 VTI: 23.0 cm PRAFUL(I,D): 1.5 cm2 PRAFUL(V,D): 1.6 cm2 PA V2 max: 78.0 cm/sec TR max hadley: 192.9 cm/sec TR max P.9 mmHg ECHO/Echo Complete Interpretation Summary The study was technically difficult. Left ventricular systolic function is normal. The estimated ejection fraction is 65 %. The right atrium is mildly enlarged. Mild diffuse mitral valve thickening. Mild (1+) mitral valve insufficiency. Mild tricuspid valve insufficiency. Stable appearing bioprosthetic aortic valve apparatus. Trivial pulmonic valve insufficiency. Aortic root repair. Right ventricular systolic pressure estimated to be 18 mmHg. No evidence for diastolic dysfunction. Ordering Physician: Hal Barnett Referring Physician: Aster Faust Performed By: Anny Doherty RDCS, RVT
== END ==
PROVIDERS: PCP Family Medicine; Referring Provider Internal Medicine Cardiovascular Disease; Visit Provider Internal Medicine Cardiovascular Disease
DX: Z95.828 Presence of other vascular implants and grafts (principal); Z95.3 Presence of xenogenic heart valve; E78.5 Hyperlipidemia, unspecified; I10 Essential (primary) hypertension; I34.1 Nonrheumatic mitral (valve) prolapse
CPT/HCPCS: 93306

== ENCOUNTER → 2021-05-15 08:31 | Outpatient (CLI) | payer OTHER, SELFPAY ==
[2020-09-12 09:10] VITALS: BMI 21.6
[2021-05-15 09:25] LABS: Absolute Lymphocyte Count 1.52 X10^3/uL (0.83-4.51); Basophil# 0.03 X10^3/uL; Basophil% 0.6 % (0-1); Eosinophil# 0.18 X10^3/uL; Eosinophils% 3.6 % (0-5); Hematocrit 46.2 % (37-47); Hemoglobin 14.9 g/dL (12.0-15.0); Lymphocyte # 1.52 X10^3/ul (0.83-4.51); Lymphocyte % 30.2 % (19-41); Mean Corp Hgb Conc 32.3 g/dL (32-36); Mean Corpuscular Hgb 28.9 pg (27.0-32.0); Mean Corpuscular Volume 89.7 fL (81-99); Mean Platelet Vol. 10.9 fl (6.2-12.0); Monocyte# 0.34 X10^3/uL; Monocyte% 6.8 % (0-10); NRBC Flagged by Analyzer 0 % (0-5); Neutrophil # 2.95 X10^3/uL (2.7-7.7); Neutrophil % 58.6 % (47-70); Platelet Count 186 K/mm3 (150-450); RBC Distribution Width CV 14.7 % (11.6-14.6); RBC Distribution Width SD 49.2 fl (35.1-43.9); Red Blood Count 5.15 M/mm3 (4.2-5.4)
[2021-05-15 09:49] LABS: AST(SGOT) 19 U/L (15-37); Alanine Aminotransfer ALT/SGPT 38 U/L (13-56); Albumin, Serum 3.5 g/dL (3.2-5.0); Alkaline Phosphatase 86 U/L (45-117); Bilirubin, Direct 0.08 mg/dL (0.00-0.30); Globulin 3.4 g/dL (2.2-4.2); Protein, Total 6.9 g/dL (6.4-8.2)
[2021-05-15 09:50] LABS: AST(SGOT) 20 U/L (15-37); Alanine Aminotransfer ALT/SGPT 37 U/L (13-56); Albumin, Serum 3.5 g/dL (3.2-5.0); Alkaline Phosphatase 84 U/L (45-117); Bilirubin, Direct 0.13 mg/dL (0.00-0.30); Cholesterol 206 mg/dL (200); Globulin 3.2 g/dL (2.2-4.2); High Density Lipoprotein 109 mg/dL; Protein, Total 6.7 g/dL (6.4-8.2); Triglycerides 55 mg/dL; Very Low Density Lipoprotein 11 mg/dL (5-40)
== END ==
PROVIDERS: PCP Family Medicine; Visit Provider Internal Medicine Cardiovascular Disease
DX: Z00.00 Encounter for general adult medical examination without abnormal findings (principal); E78.5 Hyperlipidemia, unspecified
CPT/HCPCS: 36415; 80061; 80076; 85025

== ENCOUNTER 2021-07-01 18:10 | Outpatient (CLI) | payer OTHER, SELFPAY ==
[2020-09-12 09:10] VITALS: BMI 21.6
== END 2021-07-01 23:59 | disposition short-term general hospital (02) ==
PROVIDERS: PCP Family Medicine; Visit Provider Nurse Practitioner Family
DX: Z20.822 Contact with and (suspected) exposure to COVID-19 (principal)
CPT/HCPCS: 87635; U0003; U0005

== ENCOUNTER 2021-09-24 11:38 | Outpatient (CLI) | payer OTHER, MEDICARE, SELFPAY ==
[2020-09-12 09:10] VITALS: BMI 21.6
--- NOTE | 2021-09-24 11:46 | RAD_ITS ---
STUDY: X-RAY - LUMBAR SPINE REASON FOR EXAM: Female, 66 years old. Radiating low back pain TECHNIQUE: 5 view(s) of the lumbar spine were obtained. COMPARISON: None FINDINGS: Normal lumbar lordosis. There is a mild levoscoliosis of the lumbar spine. There is a normal alignment of the vertebrae in the lateral view from L1 to L4. There is a grade 1 spondylolisthesis at L4-5. There is anatomic alignment between L5 and S1. Normal vertebral bodies and endplates. There is multi-level degenerative disc disease with multi-level disc space narrowing. There is no demonstrated fracture. Peripheral calcifications in the abdominal aorta with infrarenal aneurysm of 3.8 cm. RAD/L/S Spine Min 4 Views IMPRESSION: Degenerative changes of the spine, as detailed above. No demonstrated fracture Grade 1 spondylolisthesis at L4-5 Peripherally calcified infrarenal abdominal aortic aneurysm measuring approximately 3.8 cm Electronically Signed: Marino Sin MD at 17:11 EDT ,
== END 2021-09-24 23:59 | disposition home or self-care (01) ==
LOC: MTRAD 11:45
PROVIDERS: PCP Family Medicine; Referring Provider Nurse Practitioner Family; Visit Provider Nurse Practitioner Family
DX: M54.17 Radiculopathy, lumbosacral region (principal)
CPT/HCPCS: 72110

== ENCOUNTER → 2021-11-10 | Outpatient (CLI) | payer OTHER, MEDICARE, SELFPAY ==
[2020-09-12 09:10] VITALS: BMI 21.6
--- NOTE | 2021-11-10 09:09 | AAAS_ITS ---
Reason For Study: Infrarenal AAA, 3.8 cm, noted on lumbar x-ray Aorta Measurements Aorta Doppler Measurements Proximal aorta measures1.99 x 1.99cm. in cross- Peak systolic flow velocities within the proximal sectional axis. aorta measure 86.7 cm/sec. Proximal aorta measures2.00cm. in longitudinal Peak systolic flow velocities within the mid aorta axis. measure 81.8 cm/sec. Mid aorta measures1.58 x 1.59cm. in cross- Peak systolic flow velocities within the distal sectional axis. aorta measure 117.6 cm/sec. Mid aorta measures1.58cm. in longitudinal axis. Distal aorta measures1.57 x 1.55cm. in cross- sectional axis. Distal aorta measures1.58cm. in longitudinal axis. Left Iliac Artery Left iliac artery measures 0.93 x 0.94 cm. in the cross-sectional axis. Left iliac artery measures 0.93 cm. in the longitudinal axis. Peak systolic velocity in the left iliac artery measures 85.1 cm/sec. Right Iliac Artery Right iliac artery measures 0.89 x 0.90 cm. in the cross-sectional axis. Right iliac artery measures 0.89 cm. in the longitudinal axis. Peak systolic velocity in the right iliac artery measures 96.1 cm/sec. Procedure Aorta IVC Iliac vasculature or bypass grafts 54823. Exam performed in department. VL/AAA Screening Interpretation Summary The dimensions of the intra-abdominal aorta are normal, without evidence of ane urysmal dilatation. The iliac arteries also appear normal in caliber bilaterally. The intra-abdomin al aorta and iliac arteries appear patent, demonstrating normal, pulsatile arterial flow and esau l peak systolic velocities. Ordering Physician: Aster Faust Referring Physician: Aster Faust M.D. Performed By: Olivia Lo RVT
== END | disposition home or self-care (01) ==
LOC: US 08:52
PROVIDERS: PCP Family Medicine; Visit Provider Family Medicine
DX: I71.4 Abdominal aortic aneurysm, without rupture (principal)
CPT/HCPCS: 76706

== ENCOUNTER → 2022-01-14 | Outpatient (CLI) | payer OTHER, MEDICARE, SELFPAY ==
[2020-09-12 09:10] VITALS: BMI 21.6
--- NOTE | 2022-01-14 10:11 | BI_ITS ---
MAMMOGRAPHY - BILATERAL SCREENING REASON FOR EXAM: Female, 66 years old. Routine annual screening examination. PERTINENT HISTORY: Non-contributory. TECHNIQUE: Digital bilateral breast sal (3D mammographic acquisition) in the CC and MLO projections. 2-D mediolateral oblique (MLO) and craniocaudad (CC) views of both breasts were obtained. CAD: Full Field Digital Mammography with Computer Added Detection was performed. COMPARISON: Comparison is made with prior study 01/13/2021 and 01/09/2020. FINDINGS: Breast Composition: The breasts are heterogeneously dense, which may obscure small masses. There are no dominant masses or suspicious calcifications. No other significant abnormalities are identified. There has been no significant change since the prior study. BI/SCRN MAMM (CAD)W/SAL BILAT IMPRESSION: Stable bilateral screening mammogram. Yearly follow-up mammogram recommended. (A) ASSESSMENT CATEGORY: BIRADS Category 1: Negative. A letter regarding these results will be sent to the patient by the facility within 30 days. Approximately 10% of breast cancers are not detected by mammography. A normal mammogram should not delay biopsy of a clinically suspicious abnormality. [id number] Electronically Signed: Krishna Robins MD at 11:13 EDT ,
== END | disposition home or self-care (01) ==
LOC: OPBI 10:10
PROVIDERS: PCP Family Medicine; Visit Provider Obstetrics & Gynecology
DX: Z12.31 Encounter for screening mammogram for malignant neoplasm of breast (principal)
CPT/HCPCS: 77063; 77067

== ENCOUNTER → 2022-02-25 | Outpatient (CLI) | payer OTHER, SELFPAY ==
[2020-09-12 09:10] VITALS: BMI 21.6
--- NOTE | 2022-02-25 11:09 | ECHOD_ITS ---
Reason For Study: Valve Replacement Procedure This was a 2D Doppler, Color Flow transthoracic echocardiogram. The exam was of adequate technical quality. Exam performed in department. Left Ventricle Normal LV size. Sigmoid septum. Left ventricular systolic function is normal. The estimated ejection fraction is 65 %. No evidence for diastolic dysfunction. No regional wall motion abnormalities noted. Right Ventricle Normal RV size. Normal systolic function. Atria The left atrium is mildly enlarged. The right atrium is mildly enlarged. No doppler evidence for ASD. Mitral Valve There is no mitral annular calcification. Mild diffuse mitral valve thickening. Mild (1+) mitral valve insufficiency. Tricuspid Valve Normal tricuspid valve. Mild to moderate (1-2+) tricuspid valve insufficiency. Right ventricular systolic pressure estimated to be 21 mmHg. Aortic Valve Stable appearing bioprosthetic aortic valve apparatus. Pulmonic Valve The pulmonic valve is not well visualized. Great Vessels Aortic root repair. Pericardium/Pleural No pericardial effusion. MMode/2D Measurements & Calculations LVIDd: 4.8 cm IVSd: 0.59 cm LVOT diam: 2.0 cm LVIDs: 3.2 cm LVPWd: 0.92 cm LVOT area: 3.0 cm2 RVDd: 3.0 cm FS: 32.4 % Ao root diam: 2.9 cm LAV(MOD-bp): 43.5 ml LA A4 area: 13.9 cm2 LA dimension: 3.3 cm LAV(MOD-bp) Indexed: 26.7 ml/m2 LAV(MOD-sp2): 38.5 ml LAV(MOD-sp4): 37.5 ml RA A4 area: 13.4 cm2 Time Measurements MV dec time: 0.23 sec Doppler Measurements & Calculations MV E max hadley: 67.8 cm/sec Lat Peak E' Hadley: 10.0 cm/sec Med Peak E' Hadley: 9.3 cm/sec MV A max hadley: 65.7 cm/sec E/E' lat: 6.8 E/E' med: 7.3 MV E/A: 1.0 MV V2 max: 73.5 cm/sec MV P1/2t max hadley: 70.8 cm/sec Ao V2 max: 240.0 cm/sec MV max P.2 mmHg MV P1/2t: 73.1 msec Ao max P.1 mmHg MV V2 mean: 42.6 cm/sec MV dec slope: 283.7 cm/sec2 Ao V2 mean: 160.3 cm/sec MV mean P.86 mmHg Ao mean P.1 mmHg MV V2 VTI: 25.8 cm MVA(P1/2t): 3.0 cm2 Ao V2 VTI: 51.9 cm MVA(VTI): 2.8 cm2 PRAFUL(I,D): 1.4 cm2 PRAFUL(V,D): 1.3 cm2 LV V1 max: 100.6 cm/sec SV(LVOT): 72.6 ml PA V2 max: 70.5 cm/sec LV V1 max P.1 mmHg LV V1 mean P.4 mmHg LV V1 mean: 73.4 cm/sec LV V1 VTI: 24.0 cm TR max hadley: 211.2 cm/sec TR max P.9 mmHg ECHO/Echo Complete Interpretation Summary Left ventricular systolic function is normal. The estimated ejection fraction is 65 %. Sigmoid septum. The left atrium is mildly enlarged. The right atrium is mildly enlarged. Mild diffuse mitral valve thickening. Mild (1+) mitral valve insufficiency. Mild to moderate (1-2+) tricuspid valve insufficiency. Stable appearing bioprosthetic aortic valve apparatus. Aortic root repair. Right ventricular systolic pressure estimated to be 21 mmHg. No evidence for diastolic dysfunction. Ordering Physician: Hal Barnett Referring Physician: Hal Barnett Performed By: Je Almaguer RCS
== END | disposition home or self-care (01) ==
PROVIDERS: PCP Family Medicine; Referring Provider Internal Medicine Cardiovascular Disease; Visit Provider Internal Medicine Cardiovascular Disease
DX: I10 Essential (primary) hypertension (principal); E78.5 Hyperlipidemia, unspecified; I34.1 Nonrheumatic mitral (valve) prolapse; Z95.3 Presence of xenogenic heart valve; Z95.828 Presence of other vascular implants and grafts
CPT/HCPCS: 93306

== ENCOUNTER → 2022-03-02 | Outpatient (CLI) | payer MEDICARE, SELFPAY ==
[2020-09-12 09:10] VITALS: BMI 21.6
[2022-03-02 10:47] LABS: AST(SGOT) 23 U/L (15-37); Alanine Aminotransfer ALT/SGPT 46 U/L (13-56); Albumin, Serum 3.5 g/dL (3.2-5.0); Alkaline Phosphatase 99 U/L (45-117); Bilirubin, Direct 0.12 mg/dL (0.00-0.30); Cholesterol 200 mg/dL (200); High Density Lipoprotein 102 mg/dL; Protein, Total 6.5 g/dL (6.4-8.2); Triglycerides 70 mg/dL; Very Low Density Lipoprotein 14 mg/dL (5-40)
== END | disposition home or self-care (01) ==
PROVIDERS: PCP Family Medicine; Referring Provider Internal Medicine Cardiovascular Disease; Visit Provider Internal Medicine Cardiovascular Disease
DX: E78.00 Pure hypercholesterolemia, unspecified (principal)
CPT/HCPCS: 36415; 80061; 80076

== ENCOUNTER → 2022-10-22 | Outpatient (CLI) | payer MEDICARE, SELFPAY ==
[2020-09-12 09:10] VITALS: BMI 21.6
[2022-10-22 09:41] LABS: AST(SGOT) 27 U/L (15-37); Alanine Aminotransfer ALT/SGPT 43 U/L (13-56); Albumin, Serum 3.5 g/dL (3.2-5.0); Alkaline Phosphatase 81 U/L (45-117); Bilirubin, Direct 0.09 mg/dL (0.00-0.30); Cholesterol 225 mg/dL (200); Globulin 2.8 g/dL (2.2-4.2); High Density Lipoprotein 110 mg/dL; Protein, Total 6.3 g/dL (6.4-8.2); Triglycerides 52 mg/dL; Very Low Density Lipoprotein 10 mg/dL (5-40)
== END | disposition home or self-care (01) ==
LOC: LAB 08:38
PROVIDERS: PCP Family Medicine; Referring Provider Internal Medicine Cardiovascular Disease; Visit Provider Internal Medicine Cardiovascular Disease
DX: E78.00 Pure hypercholesterolemia, unspecified (principal)
CPT/HCPCS: 36415; 80061; 80076

== ENCOUNTER → 2022-11-30 | Outpatient (CLI) | payer MEDICARE, SELFPAY ==
[2020-09-12 09:10] VITALS: BMI 21.6
[2022-11-30 13:09] LABS: Anion Gap 3 (5-15); BUN 16 mg/dL (7-18); BUN/Creat Ratio 17.8 RATIO (10-20); Calcium,Total 9.5 mg/dL (8.5-10.1); Chloride 108 mmol/L (98-107); EST Glomerular Filtration Rate 66 mL/min (>60); Est Glom Filt Rate - Afr Amer 80 mL/min (>60); Glucose 63 mg/dL (74-106); Potassium 4.5 mmol/L (3.5-5.1); Sodium Level 140 mmol/L (136-145)
== END | disposition home or self-care (01) ==
LOC: MFPLAB 11:29
PROVIDERS: PCP Family Medicine; Visit Provider Family Medicine
DX: I10 Essential (primary) hypertension (principal)
CPT/HCPCS: 36415; 80048

== ENCOUNTER 2022-12-10 16:50 | Emergency (ER) | payer MEDICARE, SELFPAY ==
[2020-09-12 09:10] VITALS: BMI 21.6
[2022-12-10 16:51] VITALS: BP 170/90; PULSE 66; RESP 17; TEMP 36.6; O2SAT 99; BMI 22.0
[2022-12-10 17:34] VITALS: BP 159/83; PULSE 65; RESP 15; TEMP 36.6; O2SAT 97
--- NOTE | 2022-12-10 17:42 | CT_ITS ---
STUDY: CT BRAIN WITHOUT CONTRAST REASON FOR EXAM: Female, 67 years old. Fall. Pain. RADIATION DOSAGE (If Supplied By Facility): CTDIvol = ( 44.99 ) mGy, DLP = ( 812.98 ) mGycm TECHNIQUE: Transaxial CT imaging of the brain was performed without administration of intravenous contrast material. Individualized dose optimization techniques were used for this CT. COMPARISON: No relevant priors. FINDINGS: Normal soft tissue structures. Normal calvarium. Normal size ventricles and extra-axial spaces for the patient''s age. Normal white matter tracts of the cerebral hemispheres. There are small punctate calcifications of the basal ganglia which are seen in the aging brain as a normal variant. Normal brainstem. Normal cerebellum. There is no intracranial hemorrhage. There are no findings of an acute ischemic infarction. Normal visualized paranasal sinuses. CT/Brain/Head without Contrast IMPRESSION: No acute intracranial or calvarial abnormality. AIDOC was utilized to assist in identifying pertinent positive findings in this case. Electronically Signed: Emmanuel Gan DO at 18:09 EDT ,
--- NOTE | 2022-12-10 17:43 | EDS_ITS ---
HPI <NEELAM Betancur - Last Filed: 12/10/22 19:03> History of Present Illness Chief Complaint: Fall Narrative Narrative: Patient presenting today after mechanical fall that occurred around 2:30 PM this afternoon. She reports that she was walking inside of the house and was walking up a carpeted ramp that was wet and slippery and covered in leaves, she slipped and landed on her bottom and then the right side of her head hit against the concrete. She reports head pain, intermittent nausea, and feeling lightheaded at times. She denies any vomiting, loss of consciousness, and use of blood thinners. [facility]LY [facility] <NEELAM Betancur - Last Filed: 12/10/22 19:03> [facility] Medical History Bicuspid aortic valve Depression Essential hypertension Fibromyalgia Hyperlipidemia Nonrheumatic aortic (valve) insufficiency Nonrheumatic mitral (valve) prolapse Osteoporosis Thoracic aortic aneurysm without rupture Thyroid nodule Home Medications aspirin 81 mg tablet,delayed release 81 mg PO QDAY 12/27/17 [History Last Taken Unknown] bupropion HCl 300 mg 24 hr tablet, extended release (Wellbutrin XL) 300 mg PO QAM 12/27/17 [History Last Taken Unknown] cholecalciferol (vitamin D3) 25 mcg (1,000 unit) tablet 1,000 unit PO QDAY 12/27/17 [History Last Taken Unknown] lactobacillus combination no.8 3 billion cell capsule (Adult Probiotic) 3,000 mmu cells PO QDAY 12/27/17 [History Last Taken Unknown] multivitamin 1 tab PO QDAY 12/27/17 [History Last Taken Unknown] polyethylene glycol 3350 17 gram/dose oral powder (Miralax) 17 g PO QDAY PRN 12/27/17 [History Last Taken Unknown] fluticasone propionate 50 mcg/actuation nasal spray,suspension (Flonase Allergy Relief) 2 spray intranasal QDAY 01/31/19 [History Last Taken Unknown] sertraline 100 mg tablet 150 mg PO QHS 07/30/20 [History Last Taken Unknown] zolpidem 5 mg tablet (Ambien) 2.5 mg PO QHS PRN 01/28/21 [History Last Taken Unknown] azithromycin 250 mg tablet 250 mg PO .COMPLEX 02/01/22 [History Last Taken Unknown] estradiol 0.01% (0.1 mg/gram) vaginal cream 1 g vaginal 2XW 02/01/22 [History Last Taken Unknown] olopatadine 0.6 % nasal spray 2 spray intranasal BID 02/01/22 [History Last Taken Unknown] omeprazole 40 mg capsule,delayed release 40 mg PO DAILY 02/01/22 [History Last Taken Unknown] diltiazem HCl 120 mg capsule,extended release 24 hr See Rx Instructions .Route .COMPLEX #90 caps 12/08/22 [Rx Last Taken Unknown] Allergy/AdvReac Type Severity Reaction Status Date / Time Cephalosporins Allergy Severe Rash Verified 12/10/22 17:33 amoxicillin AdvReac Severe Rash Verified 12/10/22 17:33 clindamycin AdvReac Severe Unknown Verified 12/10/22 17:33 nifedipine [From Adalat] AdvReac Severe Vomiting, Verified 12/10/22 17:33 Hypotension nitrofurantoin AdvReac Severe N/V Verified 12/10/22 17:33 [From Macrobid] Sulfa (Sulfonamide AdvReac Severe Rash Verified 12/10/22 17:33 Antibiotics) montelukast [From Singulair] AdvReac Unknown Unknown Verified 12/10/22 17:33 naproxen [From Aleve] AdvReac Unknown Unknown Verified 12/10/22 17:33 Family History Father Heart disease Mother Hypertension Surgical History History of aortic valve replacement with bioprosthetic valve (~06/16/20) History of ascending aortic replacement (~06/16/20) History of laparoscopic cholecystectomy History of total hysterectomy Social History Smoking Status: Never smoker alcohol intake: never ROS <NEELAM Betancur - Last Filed: 12/10/22 19:03> ROS ED Constitutional Constitutional ED: Denies chills or fever(s) Eyes Eyes: Denies change in vision Cardiovascular Cardiovascular: Denies chest pain Respiratory/Chest Respiratory/Chest: Denies cough or dyspnea Gastrointestinal Gastrointestinal: Denies abdominal pain, nausea or vomiting Musculoskeletal Musculoskeletal: Denies arthralgias, back pain, myalgias or neck pain Integumentary Denies abscess, Abrasions or rash Neurologic Neurologic: Reports headache(s); Denies confusion or weakness EXAM <NEELAM Betancur - Last Filed: 12/10/22 19:03> Physical Exam Const Vital Signs: 12/10/22 16:51 12/10/22 17:34 12/10/22 17:34 Temperature 97.8 F 97.8 F Temperature Source Temporal Pulse Rate 66 65 Respiratory Rate 17 15 Respiratory Effort Normal Non-Labored Respiratory Depth Normal Respiratory Pattern Normal Blood Pressure 170/90 H 159/83 H Blood Pressure Mean 116 108 Pulse Ox 99 97 97 Oxygen Delivery Method Room Air Room Air Room Air 12/10/22 18:23 Temperature Temperature Source Pulse Rate 62 Respiratory Rate 16 Respiratory Effort Respiratory Depth Respiratory Pattern Blood Pressure 155/83 H Blood Pressure Mean Pulse Ox 98 Oxygen Delivery Method Positive well nourished, well developed and no apparent distress General Appearance ED: well developed HEENT Reports normocephalic and head/scalp atraumatic HEENT Narrative: Small hematoma to the right evangelical. Slight tenderness to palpation to the right cheekbone without any ecchymosis or edema Mouth ED: Yes moist mucous membranes normal Eyes PERRL and EOMs intact bilaterally Neck full ROM and supple Chest Wall inspection of chest normal Resp normal respiratory effort and clear to auscultation bilaterally Cardio regular rate and regular rhythm GI soft to palpation, non-tender, non-distended and no masses Back/Spine normal ROM and normal to inspection Extremity normal to inspection and full ROM Neuro oriented x3, CN's II-XII intact bilaterally, moves all extremities, no focal motor deficits and no sensory deficits noted Sensorium / Orientation: awake and alert Psych mental status grossly normal and thought process normal Skin no rashes or lesions noted and no wounds <Dislhad Cruz MD - Last Filed: 12/10/22 19:40> Physical Exam Const Vital Signs: 12/10/22 16:51 12/10/22 17:34 12/10/22 17:34 Temperature 97.8 F 97.8 F Temperature Source Temporal Pulse Rate 66 65 Respiratory Rate 17 15 Respiratory Effort Normal Non-Labored Respiratory Depth Normal Respiratory Pattern Normal Blood Pressure 170/90 H 159/83 H Blood Pressure Mean 116 108 Pulse Ox 99 97 97 Oxygen Delivery Method Room Air Room Air Room Air 12/10/22 18:23 Temperature Temperature Source Pulse Rate 62 Respiratory Rate 16 Respiratory Effort Respiratory Depth Respiratory Pattern Blood Pressure 155/83 H Blood Pressure Mean Pulse Ox 98 Oxygen Delivery Method MDM <NEELAM Betancur - Last Filed: 12/10/22 19:03> [facility] Narrative Medical decision making narrative: Patient presenting today after a mechanical fall that occurred this afternoon. She did hit her head, she reports a headache, intermittent nausea, intermittent lightheadedness. She is a small hematoma to her right evangelical, slight pain to palpation to the right cheekbone without any ecchymosis or edema. She is well- appearing and in no acute distress, aside from slightly elevated blood pressure vitals are unremarkable. CT of the head and neck will be obtained to rule out intracranial bleed and fracture. Imaging is negative for any acute findings. On reexamination, I offered to give patient Zofran for nausea, she declined and reported that her nausea has dissipated. I have given her concussion education and she will be discharged home in stable condition. She is to follow-up with her PCP and has been given strict return instructions. She is comfortable with plan. Radiography Diagnostic Testing: Clinical Impression(s) from Imaging Studies Brain CT 12/10/22 17:42 IMPRESSION: No acute intracranial or calvarial abnormality. AIDOC was utilized to assist in identifying pertinent positive findings in this case. Electronically Signed: Emmanuel Gan DO at 18:09 EDT Reading Location ID and State: [address] [place] [address] Tel [phone], Service support , Cervical Spine CT 12/10/22 17:53 IMPRESSION: Degenerative changes cervical spine without acute fracture or subluxation. Note: MRI is more sensitive than CT in detecting cord injury, ligamentous injury and epidural hematoma. If there is continued clinical concern for any of these entities, MRI should be considered. AIDOC was utilized to assist in identifying pertinent positive findings in this case. Electronically Signed: Emmanuel Gan DO at 18:12 EDT Reading Location ID and State: [address] [place] [address] Tel [phone], Service support , <Dilshad Cruz MD - Last Filed: 12/10/22 19:40> [facility] Narrative Medical decision making narrative: Patient presenting today after a mechanical fall that occurred this afternoon. She did hit her head, she reports a headache, intermittent nausea, intermittent lightheadedness. She is a small hematoma to her right evangelical, slight pain to palpation to the right cheekbone without any ecchymosis or edema. She is well- appearing and in no acute distress, aside from slightly elevated blood pressure vitals are unremarkable. CT of the head and neck will be obtained to rule out intracranial bleed and fracture. Imaging is negative for any acute findings. On reexamination, I offered to give patient Zofran for nausea, she declined and reported that her nausea has dissipated. I have given her concussion education and she will be discharged home in stable condition. She is to follow-up with her PCP and has been given strict return instructions. She is comfortable with plan. I have personally performed a face to face assessment of the patient and have reviewed the DONG Note. I performed a substantive portion of the visit including all aspects of the following. My alvarado findings include: History is mechanical fall on ramp, slipped on wet mat. Fell to the side and struck right side of head against concrete stairs. Exam is GCS 15. ABCs intact. Able to raise arms above head without difficulty. Neurological exam nonfocal and nonlateralizing. Medical Decision Making check CT head, check CT C-spine. I reviewed the radiology report which shows no evidence of fracture or acute hemorrhage. Closed head injury instructions, concussion precautions, instructed on brain rest. Discharge. Other additions or changes: [None] Radiography Diagnostic Testing: Clinical Impression(s) from Imaging Studies Brain CT 12/10/22 17:42 IMPRESSION: No acute intracranial or calvarial abnormality. AIDOC was utilized to assist in identifying pertinent positive findings in this case. Electronically Signed: Emmanuel Gan DO at 18:09 EDT Reading Location ID and State: [facility] / [place] Tel [phone], Service support , Cervical Spine CT 12/10/22 17:53 IMPRESSION: Degenerative changes cervical spine without acute fracture or subluxation. Note: MRI is more sensitive than CT in detecting cord injury, ligamentous injury and epidural hematoma. If there is continued clinical concern for any of these entities, MRI should be considered. AIDOC was utilized to assist in identifying pertinent positive findings in this case. Electronically Signed: Emmanuel Gan DO at 18:12 EDT Reading Location ID and State: [address] [place] [address] Tel [phone], Service support , Discharge Plan Triage Chief Complaint: Fall ED Midlevel Provider: Lucila Duque ED Provider: Dilshad Cruz Dx/Rx/DC Orders Clinical Impression: Fall, Head injury Instructions: ED Head Injury (Adult) Prescriptions: No Action bupropion HCl [Wellbutrin XL] 300 mg tablet extended release 24 hr 300 mg PO QAM multivitamin tablet 1 tab PO QDAY cholecalciferol (vitamin D3) 1,000 unit tablet 1,000 unit PO QDAY polyethylene glycol 3350 [Miralax] 17 gram/dose powder 17 g PO QDAY PRN lactobacillus combination no.8 [Adult Probiotic] 3 billion cell capsule 3,000 mmu cells PO QDAY aspirin 81 mg tablet,delayed release (DR/EC) 81 mg PO QDAY fluticasone propionate [Flonase Allergy Relief] 50 mcg/actuation spray,s uspension 2 spray INTRANASAL QDAY sertraline 100 mg tablet 150 mg PO QHS azithromycin 250 mg tablet 250 mg PO .COMPLEX Rx Instructions: 250 mg orally take 1 HR prior to dental procedure; zolpidem [Ambien] 5 mg tablet 2.5 mg PO QHS PRN omeprazole 40 mg capsule,delayed release(DR/EC) 40 mg PO DAILY estradiol 0.01 % (0.1 mg/gram) cream 1 g vaginal 2XW olopatadine 0.6 % spray,non-aerosol 2 spray intranasal BID Rx Instructions: administer into each nostril diltiazem HCl 120 mg capsule,extended release 24hr See Rx Instructions .ROUTE .COMPLEX Qty: 90 3RF Dose Instruction: TAKE 1 CAPSULE DAILY Rx Instructions: TAKE 1 CAPSULE DAILY Primary Care Provider: Aster Faust Referrals: Aster Faust MD [Primary Care Provider] - 3-5 Days Activity Restrictions/Additional Instructions: Please follow-up with your PCP. Return for any worsening symptoms. Disposition Disposition: Home, Self Care Discharge Date/Time: 12/10/22 18:29
--- NOTE | 2022-12-10 17:53 | CT_ITS ---
STUDY: CT CERVICAL SPINE WITHOUT CONTRAST REASON FOR EXAM: Female, 67 years old. Fall. RADIATION DOSAGE (If Supplied By Facility): CTDIvol = ( 11.95 ) mGy, DLP = ( 251.45 ) mGycm TECHNIQUE: High resolution transaxial imaging was performed without contrast material. Sagittal and coronal images were reconstructed. Individualized dose optimization techniques were used for this CT. COMPARISON: None FINDINGS: Normal craniovertebral junction. There are degenerative changes of the anterior atlantoaxial articulation. Normal odontoid process. There is reversal of the normal cervical lordosis. Normal vertebral bodies and posterior osseous elements. C2-3: Normal endplates. Minimal bulging annulus with slight anterolisthesis of C2 on C3. The joint degenerative change without subluxation. Normal central canal and intervertebral neuroforamina. C3-4: Minimal endplate spondylosis. Loss of disc height with bulging annulus. Facet and uncovertebral joint degenerative change.. Normal central canal. Narrowing of the bilateral intervertebral neuroforamina. C4-5: Mild endplate spondylosis with marked loss of disc height bulging annulus. Facet and uncovertebral joint degenerative change Normal central canal and intervertebral neuroforamina. C5-6: Normal endplates. Normal disc height and morphology. Normal central canal. Mild narrowing of the left intervertebral neuroforamen. C6-7: Endplate spondylosis. Marked loss of disc height with bulging annulus. Facet and uncovertebral vertebral joint degenerative change. Mild spinal stenosis. Normal intervertebral neuroforamina. C7-T1: Plate spondylosis. Loss of disc height. Facet and uncovertebral joint degenerative change. Minimal stenosis of the central canal and narrowing the bilateral intervertebral neuroforamina. Heterogenous thyroid. CT/Spine Cervical without Contras IMPRESSION: Degenerative changes cervical spine without acute fracture or subluxation. Note: MRI is more sensitive than CT in detecting cord injury, ligamentous injury and epidural hematoma. If there is continued clinical concern for any of these entities, MRI should be considered. [employer] was utilized to assist in identifying pertinent positive findings in this case. Electronically Signed: Emmanuel Gan DO at 18:12 EDT ,
[2022-12-10 18:23] VITALS: BP 155/83; PULSE 62; RESP 16; O2SAT 98
== END 2022-12-10 18:29 | disposition home or self-care (01) ==
PROVIDERS: Emergency Provider Emergency Medicine; PCP Family Medicine; Visit Provider Emergency Medicine
DX: S09.90XA Unspecified injury of head, initial encounter (principal); W19.XXXA Unspecified fall, initial encounter
CPT/HCPCS: 70450; 72125; 99282

== ENCOUNTER → 2023-01-20 | Outpatient (CLI) | payer MEDICARE, SELFPAY ==
[2020-09-12 09:10] VITALS: BMI 21.6
--- NOTE | 2023-01-20 10:19 | BI_ITS ---
MAMMOGRAPHY - BILATERAL SCREENING REASON FOR EXAM: Female, 67 years old. Routine annual screening examination. PERTINENT HISTORY: Non-contributory. Remote right stereotactic breast biopsy. TECHNIQUE: Digital bilateral breast sal (3D mammographic acquisition) in the CC and MLO projections. 2-D mediolateral oblique (MLO) and craniocaudad (CC) views of both breasts were obtained. CAD: Full Field Digital Mammography with Computer Added Detection was performed. COMPARISON: Comparison is made with prior study January 14, 2022 and January 13, 2021. FINDINGS: Breast Composition: The breasts are heterogeneously dense, which may obscure small masses. There are no dominant masses or suspicious calcifications. No other significant abnormalities are identified. There has been no significant change since the prior study. BI/SCRN MAMM (CAD)W/SAL BILAT IMPRESSION: Stable bilateral screening mammogram. Yearly follow-up mammogram recommended. (A) ASSESSMENT CATEGORY: BIRADS Category 1: Negative. A letter regarding these results will be sent to the patient by the facility within 30 days. Approximately 10% of breast cancers are not detected by mammography. A normal mammogram should not delay biopsy of a clinically suspicious abnormality. [id number] Electronically Signed: Krishna Robins MD at 12:38 EDT ,
--- NOTE | 2023-01-20 10:21 | BD_ITS ---
STUDY: DUAL ENERGY X-RAY ABSORPTIOMETRY / DXA REASON FOR EXAM: Female, 67 years old. N95.9 TECHNIQUE: Bone Mineral Density (BMD) measurements of lumbar spine and bilateral hips were obtained. COMPARISON: Comparison is made with prior study dated January 13, 2021. FINDINGS: Lumbar Spine (L1-L4): g/cm2 (0.819) / T-score (-2.1) / Z-score (-0.2) Findings are suggestive of osteopenia with a moderate fracture risk. Left Femur Total: g/cm2 (0.7-1) / T-score (-1.8) / Z-score (-0.5) Left Femoral Neck: g/cm2 (0.563) / T-score (-2.6) / Z-score (-1.0) Right Femur Total: g/cm2 (0.709) / T-score (-1.9) / Z-score (-0.6) Right Femoral Neck: g/cm2 (0.608) / T-score (-2.2) / Z-score (-0.6) The T-Scores on the most recent prior examination were: Lumbar Spine (L1-L4): There has been improvement of bone density since the previous examination. Left Femur Total: which represents a worsening of 3.7%. Right Femur Total: which represents a worsening of 1.2%. BD/Dexa Bone Density Study IMPRESSION: The patient is considered osteoporotic as outlined below according to World Dylan Organization (WHO) criteria with a high fracture risk. There has been worsening of bone density since the previous examination. Reference Information: The T-score is the number of standard deviations above or below the standard which is normal for young adults at their peak bone mineral density. The World Health Organization (WHO) interprets the T-scores as follows: Above -1 Normal bone density Between -1 and -2.5 Osteopenia Equal to / or below -2.5 Osteoporosis As a practical clinical guideline, osteopenia may be graded as follows: Mild -1 through -1.5 Moderate -1.6 through -2.0 Severe -2.1 through -2.4 The Z-score is the number of standard deviations above or below age-matched controls. A Z-score of less than -1.5 would be considered abnormal. References: 1. NIH Osteoporosis and Related Bone Diseases www osteo.org 2. International Society for Clinical Densitometry www iscd.org 3. National Osteoporosis Foundation www nof.org Electronically Signed: Krishna Robins MD at 10:04 EDT ,
== END | disposition home or self-care (01) ==
LOC: OPBD 10:18
PROVIDERS: PCP Family Medicine; Referring Provider Family Medicine; Visit Provider Family Medicine
DX: N95.9 Unspecified menopausal and perimenopausal disorder (principal); Z12.31 Encounter for screening mammogram for malignant neoplasm of breast
CPT/HCPCS: 77063; 77067; 77080

== ENCOUNTER 2023-08-25 08:12 | Outpatient (CLI) | payer MEDICARE, SELFPAY ==
[2020-09-12 09:10] VITALS: BMI 21.6
[2023-08-25 08:54] LABS: Hematocrit 46.4 % (37-47); Hemoglobin 14.8 g/dL (12.0-15.0); Mean Corp Hgb Conc 31.9 g/dL (32-36); Mean Corpuscular Hgb 30.2 pg (27.0-32.0); Mean Corpuscular Volume 94.7 fL (81-99); Mean Platelet Vol. 10.2 fl (6.2-12.0); Platelet Count 168 K/mm3 (150-450); RBC Distribution Width CV 13.4 % (11.6-14.6); RBC Distribution Width SD 46.6 fl (35.1-43.9); White Blood Count 6.8 K/mm3 (4.4-11.0)
[2023-08-25 09:28] LABS: Anion Gap 3 (5-15); BUN 15 mg/dL (7-18); BUN/Creat Ratio 16.7 RATIO (10-20); Calcium,Total 9.1 mg/dL (8.5-10.1); Chloride 109 mmol/L (98-107); EST Glomerular Filtration Rate 66 mL/min (>60); Est Glom Filt Rate - Afr Amer 80 mL/min (>60); Glucose 96 mg/dL (74-106); Potassium 4.1 mmol/L (3.5-5.1); Sodium Level 140 mmol/L (136-145)
[2023-08-25 09:49] LABS: Hemoglobin A1c 5.6 % (3.8-5.6)
== END 2023-08-25 23:59 | disposition home or self-care (01) ==
LOC: LAB 08:14
PROVIDERS: PCP Family Medicine; Visit Provider Physician Assistant
DX: Z01.818 Encounter for other preprocedural examination (principal)
CPT/HCPCS: 36415; 80048; 83036; 85027

== ENCOUNTER → 2023-08-30 | Outpatient (CLI) | payer MEDICARE, SELFPAY ==
[2020-09-12 09:10] VITALS: BMI 21.6
--- NOTE | 2023-08-30 12:29 | EKG12_ITS ---
Test Reason : PREOP Blood Pressure : / mmHG Vent. Rate : 075 BPM Atrial Rate : 075 BPM P-R Int : 162 ms QRS Dur : 086 ms QT Int : 384 ms P-R-T Axes : 031 -74 080 degrees QTc Int : 428 ms Normal sinus rhythm Left anterior fascicular block Abnormal ECG Confirmed by Bijan Mcgill ([id number]), writer editor DORIAN DURAN ([id number]) on 08/31/2023 6:34:04 AM Referred By: Con Miramontes Confirmed By:Bijan Mcgill
--- OUTSIDE RECORDS SUMMARY | 2023-08-30 13:01 | XMS RPT_ITS | CCD ---
Author Name Unknown Address [address] [place] [address] Organization [facility] Care Team Providers Care Fulfillment Mail Clerk Name Role Phone Leisa Edwards Unavailable Unavailable Xi DEL ANGEL, Paula Kennedy Unavailable Unavailable Chas AUTO GLASS INSTALLER, Live Cuevas Unavailable MER Walsh, Yasmin Limon Unavailable UnavailTrinity Sims Unavailable Unavailable MER Walsh, Yasmin Limon Unavailable Unavailzana FAUST MD, DR RUELAS Primary Care Physician Aster Faust Primary Care Provider Hal Barnett Unavailable ASTER FAUST Primary Care Unavailable NIVIA MORAES Referring Unavailable ASTER FAUST Primary Care Unavailable Allergies Allergy Classification Reported Allergen(s) Allergy Type Date of Onset Reaction(s) Facility (9 sources) amoxicillin; Translations: [Amoxicillin] drug allergy 10-27-19 12 Rash [facility] Work Phone: (9 sources) clindamycin; Translations: [Clindamycin] drug allergy 10-27-19 12 Diarrhea, Vomiting [facility] Work Phone: (9 sources) NIFEdipine; Translations: [Nifedipine] drug allergy 10-27-19 12 Vomiting [facility] Work Phone: (6 sources) Sulfonamides (Antibiotic) drug allergy 10-27-19 12 rash [facility] Work Phone: (1 source) Cefuroxime; Translations: [cefuroxime] Drug Allergy [facility] (2 sources) NITROFURANTOIN, MACROCRYSTALS / Nitrofurantoin, Monohydrate; Translations: [nitrofurantoin] Drug Allergy 04-02-20 16 Vomiting [facility] (1 source) Penicillin; Translations: [penicillin] Drug Allergy [facility] (1 source) rofecoxib; Translations: [rofecoxib] Drug Allergy [facility] (1 source) Sulfamethoxazole; Translations: [sulfamethoxazole] Drug Allergy [facility] (1 source) valdecoxib; Translations: [valdecoxib] Drug Allergy [facility] (2 sources) Cefuroxime; Translations: [CEFUROXIME AXETIL] Drug Allergy 04-02-20 16 [facility] (2 sources) Cephalosporins (Antibiotic); Translations: [CEPHALOSPORINS] Drug Allergy 04-02-20 [facility] (2 sources) loracarbef; Translations: [LORACARBEF] Drug Allergy 07-01-19 21 [facility] Work Phone: (2 sources) montelukast; Translations: [MONTELUKAST SODIUM] Drug Allergy 04-02-20 16 [facility] (2 sources) Naproxen; Translations: [NAPROXEN] Drug Allergy 04-02-20 16 [facility] (2 sources) Penicillins; Translations: [PENICILLINS] Drug Allergy 04-02-20 [facility] (2 sources) Sulfonamides (Antibiotic); Translations: [SULFA (SULFONAMIDE ANTIBIOTICS)] Drug Allergy 04-02-20 [facility] (1 source) NITROFURANTOIN MONOHYD/M-CRYST; Translations: [NITROFURANTOIN MONOHYD/M-CRYST] Propensity to adverse reactions to drug (disorder) 04-02-20 16 [facility] Repository Medications Current Medications Medication Drug Class(es) Dates Sig (Normalized) Sig (Original) aspirin 81 mg chewable tablet (13 sources) Nonsteroidal Anti-inflammatory Drug Start: 08-28-2018 Adult Aspirin 81 mg oral tablet, chewable Dose : 81 mg = 1 tab(s), Chewed, qDay, 0 Refill(s) Start Date: 08/28/18 Status: Ordered Completed/Discontinued Medications Medication Drug Class(es) Dates Sig (Normalized) Sig (Original) acetaminophen 500 mg oral tablet (7 sources) Start: 06-23-2020 take 2 tablets by mouth every eight hours as needed acetaminophen (TYLENOL) 500 mg tablet Take 2 tablets by mouth every 8 hours as needed (for mild pain; do not exceed more than 4000mg of Tylenol in 24 hour period.). 0 06/23/2020 Active Problems Active Problems Problem Classification Problem Date Documented Date Episodic/Chronic Aortic; peripheral; and visceral artery aneurysms (7 sources) Thoracic aortic aneurysm, without rupture; Translations: [Aortic root dilatation] Onset: 10-27-2011 10-27-2011 Chronic Cardiac and circulatory congenital anomalies (7 sources) Bicuspid aortic valve; Translations: [Congenital insufficiency of aortic valve] Onset: 10-27-2011 10-27-2011 Chronic Coronary atherosclerosis and other heart disease (1 source) Coronary atherosclerosis; Translations: [Atherosclerotic heart disease of [place] coronary artery without angina pectoris] Onset: 06-18-2020 06-23-2020 Chronic Disorders of lipid metabolism (7 sources) Hyperlipidemia; Translations: [Hyperlipidemia, unspecified] Onset: 10-27-2011 10-27-2011 Chronic E Codes: Fall (1 source) Fall; Translations: [Unspecified fall, initial encounter] Episodic Esophageal disorders (1 source) Gastroesophageal reflux disease; Translations: [Gastro-esophageal reflux disease without esophagitis] Onset: 04-06-2016 04-06-2016 Chronic Essential hypertension (7 sources) Hypertensive disorder; Translations: [Essential hypertension] Onset: 10-27-2011 10-27-2011 Chronic Heart valve disorders (19 sources) Nonrheumatic aortic (valve) insufficiency; Translations: [Mitral valve prolapse] Onset: 10-27-2011 01-11-2017 Chronic Mood disorders (1 source) Depressive disorder; Translations: [Depression] Onset: 04-06-2016 04-06-2016 Chronic Other non-traumatic joint disorders (1 source) Pain of right wrist; Translations: [Pain in right wrist] Episodic Unclassified (4 sources) Long-term drug therapy; Translations: [Long-term (current) use of other medications] Onset: 05-17-2013 05-17-2013 Past or Other Problems Problem Classification Problem Date Documented Date Episodic/Chronic Administrative/social admission (1 source) Discharge status; Translations: [Encounter for administrative examinations, unspecified] Onset: 06-10-2020 06-21-2020 Episodic Cardiac dysrhythmias (6 sources) Palpitations; Translations: [Palpitations] Onset: 10-27-2011 10-27-2011 Episodic Fracture of upper limb (1 source) Closed fracture of shaft of fifth metacarpal bone; Translations: [Displaced fracture of shaft of fifth metacarpal bone, right hand, initial encounter for closed fracture] Onset: 04-06-2016 04-06-2016 Episodic Other aftercare (8 sources) Long-term (current) use of other medications; Translations: [Other group home (current) drug therapy] Onset: 05-17-2013 05-17-2013 Episodic Other connective tissue disease (1 source) Fibromyalgia; Translations: [Fibromyalgia] Onset: 04-06-2016 04-06-2016 Episodic Parris-; endo-; and myocarditis; cardiomyopathy (except that caused by tuberculosis or sexually transmitted disease) (1 source) Pericarditis; Translations: [Disease of pericardium, unspecified] Onset: 06-17-2020 06-23-2020 Episodic Residual codes; unclassified (2 sources) FH: Hypertension; Translations: [Family history of ischemic heart disease and other diseases of the circulatory system] 12-02-2014 Episodic Residual codes; unclassified (1 source) Finding related to care delivery; Translations: [Other specified personal risk factors, not elsewhere classified] Onset: 06-18-2020 06-23-2021 Episodic Unclassified (10 sources) FH: Raised blood lipids; Translations: [FH: Hypertension] 12-02-2014 Episodic Results Test Name Value Interpretation Reference Range Facil ity Vital Signs Date Time Vital Sign Value Performing Clinician Facility 03-12-2022 11:31-0400 Body temperature 98.01 [degF] Nivia Moraes APRN.[employer]GE LEAD TEACHER Work Phone: [facility] 03-12-2022 11:31-0400 Body weight 58.15 kg Nivia Moraes SLP.SCHO[employer] AGE LEAD TEACHER Work Phone: [facility] 03-12-2022 11:31-0400 Diastolic blood pressure 78 mm[Hg] Nivia Moraes SLP.SCHOOL AGE LEAD TEACHER Work Phone: [facility] 03-12-2022 11:31-0400 Heart rate 80 /min Nivia Moraes SLP.SCHOOL AGE LEAD TEACHER Work Phone: [facility] 03-12-2022 11:31-0400 Respiratory rate 18 /min Nivia Moraes SLP.SCHOOL AGE LEAD TEACHER Work Phone: [facility] 03-12-2022 11:31-0400 SaO2% (BldA) [Mass fraction] 100 % Nivia Moraes SLP.SCHOOL AGE LEAD TEACHER Work Phone: [facility] 03-12-2022 11:31-0400 Systolic blood pressure 128 mm[Hg] Nivia Moraes SLP.SCHO[employer] AGE LEAD TEACHER Work Phone: [facility] 06-29-2021 11:22-0500 Diastolic Blood Pressure NBP [address] EDUARDA RANDHAWA MD [facility] 06-29-2021 11:22-0500 Respiratory rate 16 /min DR EDUARDA RANDHAWA MD [facility] 06-29-2021 11:22-0500 Systolic Blood Pressure NBP [address] EDUARDA RANDHAWA MD [facility] 06-29-2021 11:17-0500 Diastolic Blood Pressure NBP [address] EDUARDA RANDHAWA MD [facility] 06-29-2021 11:17-0500 Heart rate 55 /min DR EDUARDA RANDHAWA MD [facility] 06-29-2021 11:17-0500 Respiratory rate 13 /min DR EDUARDA RANDHAWA MD [facility] 06-29-2021 11:17-0500 Systolic Blood Pressure NBP [address] EDUARDA RANDHAWA MD [facility] 06-29-2021 11:08-0500 Diastolic Blood Pressure NBP [address] EDUARDA RANDHAWA MD [facility] 06-29-2021 11:08-0500 Heart rate 59 /min DR EDUARDA RANDHAWA MD [facility] 06-29-2021 11:08-0500 Respiratory rate 16 /min DR EDUARDA RANDHAWA MD [facility] 06-29-2021 11:08-0500 Systolic Blood Pressure NBP [address] EDUARDA RANDHAWA MD [facility] 06-29-2021 10:59-0500 Heart rate 52 /min DR EDUARDA RANDHAWA MD [facility] 06-29-2021 10:50-0500 Body temperature 97.88 [degF] DR EDUARDA RANDHAWA MD [facility] 06-29-2021 08:09-0500 Body height 166.[address] EDUARDA RANDHAWA MD [facility] 06-29-2021 08:04-0500 Body height 166.[address] EDUARDA RANDHAWA MD [facility] 06-29-2021 08:04-0500 Body temperature 98.78 [degF] DR EDUARDA RANDHAWA MD [facility] 06-29-2021 08:04-0500 Body weight [address] EDUARDA RANDHAWA MD [facility] 06-29-2021 08:04-0500 Heart rate 60 /min DR EDUARDA RANDHAWA MD [facility] 01-14-2017 09:59-0400 BMI (Body Mass Index) 20.79 kg/m2 [facility] Work Phone: 01-14-2017 09:59-0400 BP Diastolic 70 mm[Hg] [facility] Work Phone: 01-14-2017 09:59-0400 BP Systolic 112 mm[Hg] [facility] Work Phone: 01-14-2017 09:59-0400 Height 167.64 cm [facility] Work Phone: 01-14-2017 09:59-0400 Pulse (Heart Rate) 74 /min [facility] Work Phone: 01-14-2017 09:59-0400 Respiratory Rate 20 /min [facility] Work Phone: 01-14-2017 09:59-0400 Weight 58.42 kg [facility] Work Phone: 12-15-2015 09:23-0400 BMI (Body Mass Index) 20.33 kg/m2 Live Doherty AUTO GLASS INSTALLER [facility] Work Phone: 12-15-2015 09:23-0400 BP Diastolic 72 mm[Hg] Live Doherty AUTO GLASS INSTALLER [facility] Work Phone: 12-15-2015 09:23-0400 BP Systolic 130 mm[Hg] Live Doherty NP [facility] Work Phone: 12-15-2015 09:23-0400 BSA (Body Surface Area) 1.65 m2 Live Doherty NP [facility] Work Phone: 12-15-2015 09:23-0400 Pulse (Heart Rate) 84 /min Live Doherty NP [facility] Work Phone: 12-15-2015 09:23-0400 Respiratory Rate 12 /min Live Doherty NP [facility] Work Phone: 12-15-2015 09:23-0400 Weight 57.15 kg Live Doherty NP [facility] Work Phone: 11-01-2011 08:42-0400 Heart rate 413 ms [facility] Work Phone: 11-01-2011 08:42-0400 Heart rate 78 /min Trinity [facility] Work Phone: 11-01-2011 08:37-0400 Height 167.64 cm Live Doherty NP [facility] Work Phone: Encounters Encounter Date Encounter Type Care Provider Facility Start: 03-12-2022 End: 03-12-2022 ambulatory ASTER FAUST Facility:[facility] Start: 03-12-2022 End: 03-12-2022 Patient encounter procedure Nivia Moraes APRN.[employer]GE LEAD TEACHER Work Phone: [facility] Procedures Date Procedure Procedure Detail Performing Clinician Start: 06-19-2020 Aortic valve structu re (body structure) DR EDUARDA RANDHAWA MD Plan of Treatment Date Care Activity Detail Author Start: 07-01-2025 LIPID SCREEN LIPID SCREEN [facility] Start: 07-01-2023 DIABETES SCREEN DIABETES SCREEN [facility] Start: 03-12-2023 BP CONTROLLED (<130/80) BP CONTROLLED (<130/80) [facility] in Start: 02-25-2022 Influenza vaccination INFLUENZA (#1) [facility] Start: 07-01-2021 Hepatitis B surface antibody level LDL CHOLESTEROL [facility] Start: 06-27-2021 ADVANCE DIRECTIVE DISCUSSION ADVANCE DIRECTIVE DISCUSSION [facility] Start: 2021 BONE DENSITY BONE DENSITY [facility] Start: 2021 PNEUMOCOCCAL: 65+ (1 - PCV) PNEUMOCOCCAL: 65+ (1 - PCV) [facility] Start: 01-11-2018 End: 01-11-2018 Appointment Appointment [facility] Work Phone: Start: 01-02-2018 End: 01-12-2017 *Hepatic Function Panel *Hepatic Function Panel [facility] Work Phone: Start: 01-02-2018 End: 01-12-2017 Lipid panel [AGGREGATE] *Lipid Profile CC PCP [facility] Work Phone: Start: 01-14-2017 End: 01-14-2017 Appointment Appointment [facility] Work Phone: Start: 01-14-2017 End: 01-14-2017 Ct thorax w/dye CT Chest with Contrast [facility] Work Phone: Start: 01-14-2017 End: 01-14-2017 Follow Up Appt 1 year Follow Up Appt 1 year [facility] Work Phone: Start: 01-14-2017 End: 01-14-2017 PFM PFM [facility] Work Phone: Start: 12-27-2016 End: 12-31-2015 *Hepatic Function Panel *Hepatic Function Panel [facility] Work Phone: Start: 12-27-2016 End: 12-31-2015 Lipid panel [AGGREGATE] *Lipid Profile CC PCP [facility] Work Phone: Start: 12-15-2015 End: 12-26-2015 *Hepatic Function Panel *Hepatic Function Panel [facility] Work Phone: Start: 12-15-2015 End: 12-15-2015 Echocardiography Echocardiogram (complete) [facility] Work Phone: Start: 12-15-2015 End: 12-15-2015 Follow Up Appt 1 year Follow Up Appt 1 year [facility] Work Phone: Start: 12-15-2015 End: 12-26-2015 Lipid panel [AGGREGATE] *Lipid Profile CC PCP [facility] Work Phone: Start: 12-15-2015 End: 12-15-2015 PFM PFM [facility] Work Phone: Start: 03-31-2015 End: 12-26-2015 *Hepatic Function Panel *Hepatic Function Panel [facility] Work Phone: Start: 03-31-2015 End: 12-26-2015 Lipid panel [AGGREGATE] *Lipid Profile CC PCP [facility] Work Phone: Start: 12-18-2014 End: 12-23-2014 Ct thorax w/dye CT Chest with Contrast [facility] Work Phone: Start: 12-02-2014 End: 12-02-2014 Echocardiography Echocardiogram (complete) [facility] Work Phone: Start: 12-02-2014 End: 12-02-2014 Follow Up Appt 1 year Follow Up Appt 1 year [facility] Work Phone: Start: 12-02-2014 End: 12-02-2014 PFM [facility]FM [facility] Work Phone: Start: 01-25-2014 End: 03-29-2014 *Hepatic Function Panel *Hepatic Function Panel [facility] Work Phone: Start: 01-25-2014 End: 03-29-2014 Lipid panel [AGGREGATE] *Lipid Profile CC PCP [facility] Work Phone: Start: 12-18-2013 End: 12-19-2013 *BMP *BMP [facility] Work Phone: Start: 12-05-2013 End: 12-05-2013 Ct thorax w/dye CT Chest with Contrast [facility] Work Phone: Start: 11-26-2013 End: 11-26-2013 Echocardiography Echocardiogram (complete) [facility] Work Phone: Start: 11-26-2013 End: 12-26-2015 Follow Up Appt 1 year Follow Up Appt 1 year [facility] Work Phone: Start: 11-26-2013 End: 12-26-2015 PFM PFM [facility] Work Phone: Start: 07-28-2013 End: 08-10-2013 *Hepatic Function Panel *Hepatic Function Panel [facility] Work Phone: Start: 07-28-2013 End: 08-10-2013 Lipid panel [AGGREGATE] *Lipid Profile CC PCP [facility] Work Phone: Start: 11-17-2012 End: 11-29-2012 *Hepatic Function Panel *Hepatic Function Panel [facility] Work Phone: Start: 11-17-2012 End: 12-26-2015 Echocardiography Echocardiogram (complete) [facility] Work Phone: Start: 11-17-2012 End: 12-26-2015 Follow Up Appt 1 year Follow Up Appt 1 year [facility] Work Phone: Start: 11-17-2012 End: 11-29-2012 Lipid panel [AGGREGATE] *Lipid Profile CC PCP [facility] Work Phone: Start: 11-17-2012 End: 12-26-2015 PFM PFM [facility] Work Phone: Start: 10-25-2012 End: 11-04-2011 *BMP *BMP [facility] Work Phone: Start: 10-25-2012 End: 11-04-2011 *Hepatic Function Panel *Hepatic Function Panel [facility] Work Phone: Start: 10-25-2012 End: 11-04-2011 Lipid panel [AGGREGATE] *Lipid Profile [facility] Work Phone: Start: 10-25-2012 End: 11-04-2011 Magnesium *Magnesium [facility] Work Phone: Start: 11-01-2011 End: 11-04-2011 *BMP *BMP [facility] Work Phone: Start: 11-01-2011 End: 11-01-2011 Echocardiography Echocardiogram (complete) [facility] Work Phone: Start: 11-01-2011 End: 11-01-2011 Electrocardiogram, complete EKG (In office) [facility] Work Phone: Start: 11-01-2011 End: 11-04-2011 Follow Up Appt 1 year Follow Up Appt 1 year [facility] Work Phone: Start: 11-01-2011 End: 11-01-2011 Magnesium *Magnesium [facility] Work Phone: Start: 2006 SHINGRIX VACCINE (1 of 2) SHINGRIX VACCINE (1 of 2) [facility] Start: 2001 COLOGUARD (FIT-DNA) COLOGUARD (FIT-DNA) [facility] Start: 2001 Colonoscopy COLONOSCOPY [facility] Start: 2001 COLORECTAL CANCER SCREENING COLORECTAL CANCER SCREENING [facility] Start: [address] COLONOGRAPHY [facility] Start: 2001 FECAL OCCULT BLOOD FECAL OCCULT BLOOD [facility] Start: 2001 SIGMOIDOSCOPY SIGMOIDOSCOPY [facility] Start: 1996 Mammography MAMMOGRAM [facility] Start: 1975 Urine microalbumin profile DTAP,TDAP,TD (1 - Tdap) [facility] Start: 1974 ANNUAL PCP TEAM CHRONIC DISEASE VISIT ANNUAL PCP TEAM CHRONIC DISEASE VISIT [facility] Start: 1974 HEPATITIS C SCREENING HEPATITIS C SCREENING [facility] Start: 1974 HIV SCREENING HIV SCREENING [facility] Patient Education [facility] Work Phone: Immunizations Immunization Date Immunization Notes Care Provider Ze reyez 09-19-2020 COVID-19 vaccine, ag e 12+ yr [facility] Nivia Moraes SLP.SCHOOL AGE LEAD TEACHER Work Phone: [facility] 08-29-2020 COVID-19 vaccine, ag e 12+ yr ([employer] - [facility]) Nivia Moraes SLP.SCHOOL AGE LEAD TEACHER Work Phone: [facility] Work Phone: 04-09-2020 influenza, injectabl e, quadrivalent, contains preservative Nivia Moraes SLP.SCHOOL AGE LEAD TEACHER Work Phone: [facility] Work Phone: 04-06-2018 influenza virus vaccine, unspecified formulation Nivia Moraes SLP.SCHOOL AGE LEAD TEACHER Work Phone: [facility] 04-19-2017 influenza virus vaccine, unspecified formulation Nivia Moraes SLP.SCHO[employer] AGE LEAD TEACHER Work Phone: [facility] 03-25-2016 influenza virus vaccine, unspecified formulation Nivia Moraes SLP.SCHOOL AGE LEAD TEACHER Work Phone: [facility] Payers Date Payer Category Payer Medicare A[employer]NA MEDICARE A ETNA MEDICARE PPO [id number] 2022-Present [phone] [address] [place] [address] PPO [id number] 2022 Medicare [id number] Social History Date Type Detail Facility Start: 04-02-2016 Tobacco smoking stat us MTIS Never smoked tobacco [facility] Start: 04-02-2016 Tobacco use and exposure Smokeless tobacco non-user [facility] Start: 03-12-2022 Alcohol intake Current drinke r of alcohol (finding) [facility] Start: 04-05-2016 History SDOH Alcohol Comment rare, once a year [facility] Start: 1955 Sex Assigned At Female [facility] Start: 03-02-2022 End: 03-12-2022 Exposure to SARS-CoV-2 (event) Not sure [facility] Work Phone: Medical Equipment Procedure Code Equipment Code Equipment Origin al Text Equipment Identifier Dates Graft Hemashield Anderson 28mm Straight Tube Woven 2 Velour Collagen 30cm - [id number] Start: 06-16-2020 Vxd-Pc-S-Kind Implant - [id number] Start: 04-07-2016 Progress note 03-12-2022 Note Date & Type Note Facility 03-12-2022 Note HNO ID: [id number] Author: RT Harris(R) Service: Radiology Author Type: Technologist Type: Progress Notes Filed: 03/12/2022 11:46 AM Note Text: Radiology Service Progress Note PATIENT NAME: Carly Hernandez DATE OF SERVICE: March 12, 2022 TIME: 11:39 AM PATIENT IDENTITY VERIFICATION COMPLETED USING TWO (2) IDENTIFIERS: Name and Date of confirmed by patient verbally. FALL SCREENING: Has the patient had 2 falls in the last year or 1 fall with injury or currently using an Ambulatory Assistive Device (Walker, Cane, Wheelchair, Crutches, etc.)? No PATIENT GENDER DATA: Female. status: : No status: NO. PATIENT RELEVANT IMPLANT DATA REVIEWED: Yes RADIOLOGY DEPARTMENT: General X-ray: Exam(s) Completed: Upper Extremity X-Ray(s): Wrist, right PERIPHERAL IV DATA: Not applicable SIGNED BY: RT Harris(R) March 12, 2022 11:39 AM [facility] Progress note 03-12-2022 Note Date & Type Note Facility 03-12-2022 Note HNO ID: [id number] Author: Nivia Moraes APRN.SCHO[employer]GE LEAD TEACHER Service: ? Author Type: Nurse Practitioner Type: Progress Notes Filed: 03/12/2022 1:00 PM Note Text: This note was created using [employer]. Subjective Carly Hernandez is a 66 year old female. 66 year old female with PMH fibromyalgia, hyperlipidemia, CAD, HTN, GERD, right hand fracture and depression presents for complaints of right wrist pain. Acute onset yesterday Tripped and fell She states she had tripped over uneven area and fell Used her right hand to break fall. Denies head trauma or injury Denies LOC Denies neck or back pain. Denies abdominal pain. Denies N/V/D Prior fracture of Right hand, 2016 with pins and plates Right hand dominant. The history is provided by the patient. No cooker sulfate was used. Wrist/forearm Injury The incident occurred 12 to 24 hours ago. The incident occurred at home. The injury mechanism was a fall. Pain location: right wrist. The quality of the pain is described as aching. The pain does not radiate. The pain is at a severity of 5/10. The pain is moderate. The pain has been Constant since the incident. Pertinent negatives include no chest pain, muscle weakness, numbness or tingling. Nothing aggravates the symptoms. She has tried nothing for the symptoms. The treatment provided no relief. PAST MEDICAL HISTORY Diagnosis Date Aortic root dilatation (HCC) BCC (basal cell carcinoma) L thigh, removed Bicuspid aortic valve Depression Environmental allergies GERD (gastroesophageal reflux disease) Hyperlipemia Hypertension MVP (mitral valve prolapse) PONV (postoperative nausea and vomiting) PAST SURGICAL HISTORY Procedure Laterality Date HAND SURGERY HX with pins and plates HYSTERECTOMY HX ovaries intact LAPAROSCOPY SURG CHOLECYSTECTOMY TOE SURGERY HX Left 4th toe TONSILLECTOMY AND ADENOIDECTOMY HX ALLERGIES Adalat, Amoxicillin, Ceftin [Cefuroxime Axetil], Cephalosporins, Clindamycin, Lorabid [Loracarbef], Macrobid [Nitrofurantoin Monohyd/M-Cryst], Naproxen, Penicillins, Singulair [Montelukast Sodium], and Sulfa (Sulfonamide Antibiotics) MEDICATIONS OMEPRAZOLE ORAL Take by mouth. acetaminophen (TYLENOL) 500 mg tablet Take 2 tablets by mouth every 8 hours as needed (for mild pain; do not exceed more than 4000mg of Tylenol in 24 hour period.). sodium chloride (AYR, OCEAN) 0.65 % nasal spray Use 2 Sprays in each nostril three times daily. buPROPion XL (WELLBUTRIN XL) 300 mg 24 hr tablet Take 1 tablet by mouth once daily. polyethylene glycol 3350 (MIRALAX) 17 gram packet Take 1 Packet by mouth once daily. Lactobac comb [id number] (PROBIOTIC AND ACIDOPHILUS) 300-250 million cell-mg cap Take 1 capsule by mouth once daily. sertraline HCl (ZOLOFT ORAL) Take 150 mg by mouth once daily. OTC NUTRITIONAL SUPPLEMENT Fibrocare -magnesium and malic acid supplement 2 tablets twice daily multivitamin tablet Take 1 tablet by mouth once daily. aspirin 81 mg chewable tablet Take 81 mg by mouth once daily. cholecalciferol (VITAMIN D3) 1,000 unit tab tablet Take 1,000 Units by mouth once daily. cyclobenzaprine HCl (FLEXERIL ORAL) Take 5 mg by mouth three times daily. colchicine 0.6 mg tablet Take 1 tablet by mouth once daily. metoprolol tartrate, short acting, (LOPRESSOR) 25 mg tablet Take 1 tablet by mouth every 12 hours. ESTRING 2 mg vaginal ring (Patient not taking: Reported on 03/12/2022) pantoprazole DR (PROTONIX) 40 mg tablet 1 tablet every pm (Patient not taking: Reported on 03/12/2022) FAMILY HISTORY Problem Relation Age of Onset Stroke Mother other (HTN) Mother Heart Father pacemaker Suicide / Suicidal Behaviors Father other (Rheumatoid) Father other (Mitral valve prolapse) Father Social History Tobacco Use Smoking status: Never Smokeless tobacco: Never Substance Use Topics Alcohol use: Yes Comment: rare, once a year Drug use: No Review of Systems Constitutional: Negative for activity change, appetite change, chills, diaphoresis, fatigue and fever. Eyes: Negative for pain, discharge, redness and itching. Respiratory: Negative for apnea, cough, choking and chest tightness. Cardiovascular: Negative for chest pain, palpitations and leg swelling. Gastrointestinal: Negative for abdominal pain, diarrhea and nausea. Musculoskeletal: Negative for arthralgias, back pain and gait problem. Right wrist Skin: Negative for color change, pallor, rash and wound. Allergic/Immunologic: Negative for environmental allergies, food allergies and immunocompromised state. Neurological: Negative for dizziness, tingling, facial asymmetry and numbness. Hematological: Negative for adenopathy. Does not bruise/bleed easily. Psychiatric/Behavioral: Negative for agitation and behavioral problems. Objective BP 128/78 Pulse 80 Temp 36.7 ?C (98 ?F) Resp 18 Wt 58.2 kg (128 lb 3.2 oz) SpO2 100% BMI 21.33 kg/m? Physical E (more content not included)... [facility] Instructions 03-12-2022 Patient Instructions Note Date & Type Note Facility 03-12-2022 Instructions Nivia Moraes APRN.[employer] - 03/12/2022 12:31 PM EDT R.I.C.E. The general care of your injury includes the following: Resting, Icing, Compressing and Elevating the injured area. Remember this as RICE. REST: Limit the use of the injured body part. ICE: By applying ice to the affected area, swelling and pain can be reduced. Place some ice cubes in a re-sealable (Ziploc) bag and add some water. Put a thin washcloth between the bag and your skin. Apply the ice bag to the area for at least 20 minutes. Do this at least 4 times per day. Using the ice for longer times and more frequently is OK. NEVER APPLY ICE DIRECTLY TO THE SKIN. COMPRESS: Compression means to apply pressure around the injured area such as with a splint, cast or an nubia bandage. Compression decreases swelling and improves comfort. Compression should be tight enough to relieve swelling but not so tight as to decrease circulation. Increasing pain, numbness, tingling, or change in skin color, are all signs of decreased circulation. ELEVATE: Elevate the injured part. For example, elevate your foot by placing it on a chair while sitting, or propping it up on pillows when lying down. documented in this encounter [facility] History of Present illness Narrative 03-12-2022 Nivia Moraes APRN.ZULLY - 03/12/2022 11:33 AM EDT Note Date & Type Note Facility 03-12-2022 History of Presen t illness Narrative This note was created using [employer]. Subjective Carly Hernandez is a 66 year old female. 66 year old female with PMH fibromyalgia, hyperlipidemia, CAD, HTN, GERD, right hand fracture and depression presents for complaints of right wrist pain. Acute onset yesterday Tripped and fell She states she had tripped over uneven area and fell Used her right hand to break fall. Denies head trauma or injury Denies LOC Denies neck or back pain. Denies abdominal pain. Denies N/V/D Prior fracture of Right hand, 2016 with pins and plates Right hand dominant. The history is provided by the patient. No cooker sulfate was used. Wrist/forearm Injury The incident occurred 12 to 24 hours ago. The incident occurred at home. The injury mechanism was a fall. Pain location: right wrist. The quality of the pain is described as aching. The pain does not radiate. The pain is at a severity of 5/10. The pain is moderate. The pain has been Constant since the incident. Pertinent negatives include no chest pain, muscle weakness, numbness or tingling. Nothing aggravates the symptoms. She has tried nothing for the symptoms. The treatment provided no relief. PAST MEDICAL HISTORY Diagnosis Date Aortic root dilatation (HCC) BCC (basal cell carcinoma) L thigh, removed Bicuspid aortic valve Depression Environmental allergies GERD (gastroesophageal reflux disease) Hyperlipemia Hypertension MVP (mitral valve prolapse) PONV (postoperative nausea and vomiting) PAST SURGICAL HISTORY Procedure Laterality Date HAND SURGERY HX with pins and plates HYSTERECTOMY HX ovaries intact LAPAROSCOPY SURG CHOLECYSTECTOMY TOE SURGERY HX Left 4th toe TONSILLECTOMY AND ADENOIDECTOMY HX ALLERGIES Adalat, Amoxicillin, Ceftin [Cefuroxime Axetil], Cephalosporins, Clindamycin, Lorabid [Loracarbef], Macrobid [Nitrofurantoin Monohyd/M-Cryst], Naproxen, Penicillins, Singulair [Montelukast Sodium], and Sulfa (Sulfonamide Antibiotics) MEDICATIONS OMEPRAZOLE ORAL Take by mouth. acetaminophen (TYLENOL) 500 mg tablet Take 2 tablets by mouth every 8 hours as needed (for mild pain; do not exceed more than 4000mg of Tylenol in 24 hour period.). sodium chloride (AYR, OCEAN) 0.65 % nasal spray Use 2 Sprays in each nostril three times daily. buPROPion XL (WELLBUTRIN XL) 300 mg 24 hr tablet Take 1 tablet by mouth once daily. polyethylene glycol 3350 (MIRALAX) 17 gram packet Take 1 Packet by mouth once daily. Lactobac comb 5-KBN-kyxwezqwcg (PROBIOTIC AND ACIDOPHILUS) 300-250 million cell-mg cap Take 1 capsule by mouth once daily. sertraline HCl (ZOLOFT ORAL) Take 150 mg by mouth once daily. OTC NUTRITIONAL SUPPLEMENT Fibrocare -magnesium and malic acid supplement 2 tablets twice daily multivitamin tablet Take 1 tablet by mouth once daily. aspirin 81 mg chewable tablet Take 81 mg by mouth once daily. cholecalciferol (VITAMIN D3) 1,000 unit tab tablet Take 1,000 Units by mouth once daily. cyclobenzaprine HCl (FLEXERIL ORAL) Take 5 mg by mouth three times daily. colchicine 0.6 mg tablet Take 1 tablet by mouth once daily. metoprolol tartrate, short acting, (LOPRESSOR) 25 mg tablet Take 1 tablet by mouth every 12 hours. ESTRING 2 mg vaginal ring (Patient not taking: Reported on 03/12/2022) pantoprazole DR (PROTONIX) 40 mg tablet 1 tablet every pm (Patient not taking: Reported on 03/12/2022) FAMILY HISTORY Problem Relation Age of Onset Stroke Mother other (HTN) Mother Heart Father pacemaker Suicide / Suicidal Behaviors Father other (Rheumatoid) Father other (Mitral valve prolapse) Father Social History Tobacco Use Smoking status: Never Smokeless tobacco: Never Substance Use Topics Alcohol use: Yes Comment: rare, once a year Drug use: No Review of Systems Constitutional: Negative for activity change, appetite change, chills, diaphoresis, fatigue and fever. Eyes: Negative for pain, discharge, redness and itching. Respiratory: Negative for apnea, cough, choking and chest tightness. Cardiovascular: Negative for chest pain, palpitations and leg swelling. Gastrointestinal: Negative for abdominal pain, diarrhea and nausea. Musculoskeletal: Negative for arthralgias, back pain and gait problem. Right wrist Skin: Negative for color change, pallor, rash and wound. Allergic/Immunologic: Negative for environmental allergies, food allergies and immunocompromised state. Neurological: Negative for dizziness, tingling, facial asymmetry and numbness. Hematological: Negative for adenopathy. Does not bruise/bleed easily. Psychiatric/Behavioral: Negative for agitation and behavioral problems. Objective BP 128/78 Pulse 80 Temp 36.7 C (98 F) Resp 18 Wt 58.2 kg (128 lb 3.2 oz) SpO2 100% BMI 21.33 kg/m Physical Exam Vitals and nursing note reviewed. Constitutional: General: She is not in acute distress. Appearance: Normal appearance. She is normal weight. She is not ill-appearing, toxic-appearing or diaphoretic. HENT: Head: Normocephalic and atraumatic. Right Ear: Ear canal and external ear normal. Left Ear: Ear canal and external ear normal. Nose: Nose normal. No congestion or rhinorrhea. Mouth/Throat: Mouth: Mucous membranes are moist. Pharynx: No oropharyngeal exudate or posterior oropharyngeal erythema. Eyes: General: Right eye: No discharge. Left eye: No discharge. Extraocular Movements: Extraocular movements intact. Conjunctiva/sclera: Conjunctivae normal. Pupils: Pupils are equal, round, and reactive to light. Cardiovascular: Rate and Rhythm: Normal rate and regular rhythm. Pulses: Normal pulses. Heart sounds: Normal heart sounds. No murmur heard. No friction rub. Pulmonary: Effort: Pulmonary effort is normal. No respiratory distress. Breath sounds: Normal breath sounds. No stridor. No wheezing, rhonchi or rales. Chest: Chest wall: No tenderness. Abdominal: General: Abdomen is flat. There is no distension. Palpations: Abdomen is soft. There is no mass. Tenderness: There is no abdominal tenderness. There is no right CVA tenderness, left CVA tenderness, guarding or rebound. Hernia: No hernia is present. Musculoskeletal: General: Tenderness (Right wrist wtih erythema and TTP noted to ulna aspect. No obvious deformity. Skin intact. Full active and passive ROM) present. No swelling, deformity or signs of injury. Normal range of motion. Cervical back: Normal range of motion and neck supple. No rigidity. Right lower leg: No edema. Left lower leg: No edema. Lymphadenopathy: Cervical: No cervical adenopathy. Skin: General: Skin is warm and dry. Capillary Refill: Capillary refill takes less than 2 seconds. Coloration: Skin is not jaundiced or pale. Findings: No bruising, erythema, lesion or rash. Neurological: General: No focal deficit present. Mental Status: She is alert and oriented to person, place, and time. Cranial Nerves: No cranial nerve deficit. Sensory: No sensory deficit. Motor: No weakness. Coordination: Coordination normal. Gait: Gait normal. Psychiatric: Mood and Affect: Mood normal. Behavior: Behavior normal. Thought Content: Thought content normal. Judgment: Judgment normal. Assessment and Plan ASSESSMENT/PLAN: 1. Fall, initial encounter - ICD9: E888.9, ICD10: W19.XXXA (primary diagnosis) Yesterday Mechanical No head trauma or LOC Right wrist - XR WRIST GENERAL 3V PA/LAT/OBL RIGHT 2. Right wrist pain - ICD9: 719.43, ICD10: M25.531 Result of injury - XR WRIST GENERAL 3V PA/LAT/OBL RIGHT-IMPRESSION:There is dorsal plate and multiple screws in the fifth metacarpal. There is no evidence of hardware loosening. Small cortical lucency just lateral to the ulnar styloid without soft tissue swelling is probably related to remote injury. There are degenerative changes in the first carpometacarpal, triscaphe and first CMC joints. There is no acute fracture, dislocation or focal soft tissue swelling. Velcro wrist splint applied RICE OTC analgesics Follow up with ortho or PCP if symptoms persist. Nivia Moraes APRN.ZULLY documented in this encounter [facility] Evaluation + Plan note 06-29-2021 Note Date & Type Note Facility [facility] ADMISSION HISTORY A ND PHYSICIAL CHIEF COMPLAINT: HISTORY OF PRESENT ILLNESS: REVIEW OF SYSTEMS: ACTIVE PROBLEMS: (5) Allergic rhinitis ([id number]) Aortic valve disorder ([id number]) Depression ([id number]) Gastroesophageal reflux disease (709227722) Hypertension (69216100) MEDICATIONS: Active Inpt Meds: None Active PRN Meds: None One Time Meds: None Active IV Meds: Lactated Ringers Infusion 1,000 mL (LR 1,000 mL) Start: 06/29/21 8:12:00 EST, Rate: 50 mL/hr ALLERGIES: (9) Adalat amoxicillin Bextra Ceftin Cleocin HCl Macrobid penicillin sulfamethoxazole Vioxx FAMILY HISTORY: SOCIAL HISTORY: PHYSICAL EXAM: VITALS: [id number](kg) 06/29 10:00--156/[id number]/ 60.0 06/29 08:0437.1158/[id number] 24 Hr Tmax: 37.1 at 06/29 08:04 36 Hr Tmax: 37.1 at 06/29 08:04 Vital Signs are the last 5 in the past 48 hours. Weights display the last 5 within 7 days. Initial Wt: 06/29 60.0 kg 132 lb Current Wt: 06/29 60.0 kg 132 lb GENERAL: HEENT: CARDIOVASCULAR: RESPIRATORY: ABDOMEN: EXREMETIES: NEUROLOGICAL: PSYCHIATRIC: LABS: No 36hr Lab Data DIAGNOSTICS: IMPRESSION: PLAN: History and Physical Update I have examined the patient; reviewed the H&P and there are no changes to the H&P unless noted below. [facility] Hospital Discharge instructions 06-29-2021 Note Date & Type Note Facility 06-29-2021 Hospital Discharg e instructions Patient Education 06/29/2021 11:03:50 Colonoscopy, Adult, Care After, Pgur-gh-Fzmc Colonoscopy, Adult, Care After This sheet gives you information about how to care for yourself after your procedure. Your doctor may also give you more specific instructions. If you have problems or questions, call your doctor. What can I expect after the procedure? After the procedure, it is common to have: A small amount of blood in your poop for 24 hours. Some gas. Mild cramping or bloating in your belly. Follow these instructions at home: General instructions For the first 24 hours after the procedure: ?Do not drive or use machinery. ?Do not sign important documents. ?Do not drink alcohol. ?Do your daily activities more slowly than normal. ?Eat foods that are soft and easy to digest. Take cbrb-jas-elmtioo or prescription medicines only as told by your doctor. To help cramping and bloating: Try walking around. Put heat on your belly (abdomen) as told by your doctor. Use a heat source that your doctor recommends, such as a moist heat pack or a heating pad. ?Put a towel between your skin and the heat source. ?Leave the heat on for 20 30 minutes. ?Remove the heat if your skin turns bright red. This is especially important if you cannot feel pain, heat, or cold. You can get burned. Eating and drinking Drink enough fluid to keep your pee (urine) clear or pale yellow. Return to your normal diet as told by your doctor. Avoid heavy or fried foods that are hard to digest. Avoid drinking alcohol for as long as told by your doctor. Contact a doctor if: You have blood in your poop (stool) 2 3 days after the procedure. Get help right away if: You have more than a small amount of blood in your poop. You see large clumps of tissue (blood clots) in your poop. Your belly is swollen. You feel sick to your stomach (nauseous). You throw up (vomit). You have a fever. You have belly pain that gets worse, and medicine does not help your pain. Summary After the procedure, it is common to have a small amount of blood in your poop. You may also have mild cramping and bloating in your belly. For the first 24 hours after the procedure, do not drive or use machinery, do not sign important documents, and do not drink alcohol. Get help right away if you have a lot of blood in your poop, feel sick to your stomach, have a fever, or have more belly pain. This information is not intended to replace advice given to you by your health care provider. Make sure you discuss any questions you have with your health care provider. Document Released: 07/16/2011 Document Revised: 04/13/2018 Document Reviewed: 03/07/2017 [employer] Patient Education 2020 [employer]. 06/29/2021 11:03:18 Nausea and Vomiting, Adult, [place] Nausea and Vomiting, Adult Nausea is feeling sick to your stomach or feeling that you are about to throw up (vomit). Vomiting is when food in your stomach is thrown up and out of the mouth. Throwing up can make you feel weak. It can also make you lose too much water in your body (get dehydrated). If you lose too much water in your body, you may: Feel tired. Feel thirsty. Have a dry mouth. Have cracked lips. Go pee (urinate) less often. Older adults and people with other diseases or a weak body defense system (immune system) are at higher risk for losing too much water in the body. If you feel sick to your stomach and you throw up, it is important to follow instructions from your doctor about how to take care of yourself. Follow these instructions at home: Watch your symptoms for any changes. Tell your doctor about them. Follow these instructions to care for yourself at home. Eating and drinking Take an ORS (oral rehydration solution). This is a drink that is sold at pharmacies and stores. Drink clear fluids in small amounts as you are able, such as: ?Water. ?Ice chips. ?Fruit juice that has water added (diluted fruit juice). ?Low-calorie sports drinks. Eat bland, hutr-tv-dwkivy foods in small amounts as you are able, such as: ?Bananas. ?Applesauce. ?Rice. ?Low-fat (lean) meats. ?Edison. ?Crackers. Avoid drinking fluids that have a lot of sugar or caffeine in them. This includes energy drinks, sports drinks, and soda. Avoid alcohol. Avoid spicy or fatty foods. General instructions Take phjy-zve-ybhaysj and prescription medicines only as told by your doctor. Drink enough fluid to keep your pee (urine) pale yellow. Wash your hands often with soap and water. If you cannot use soap and water, use hand fisher pot. Make sure that all people in your home wash their hands well and often. Rest at home while you get better. Watch your condition for any changes. Take slow and deep breaths when you feel sick to your stomach. Keep all follow-up visits as told by your doctor. This is important. Contact a doctor if: Your symptoms get worse. You have new symptoms. You have a fever. You cannot drink fluids without throwing up. You feel sick to your stomach for more than 2 days. You feel light-headed or dizzy. You have a headache. You have muscle cramps. You have a rash. You have pain while peeing. Get help right away if: You have pain in your chest, neck, arm, or jaw. You feel very weak or you pass out (faint). You throw up again and again. You have throw up that is bright red or looks like black coffee grounds. You have bloody or black poop (stools) or poop that looks like tar. You have a very bad headache, a stiff neck, or both. You have very bad pain, cramping, or bloating in your belly (abdomen). You have trouble breathing. You are breathing very quickly. Your heart is beating very quickly. Your skin feels cold and clammy. You feel confused. You have signs of losing too much water in your body, such as: ?Dark pee, very little pee, or no pee. ?Cracked lips. ?Dry mouth. ?Sunken eyes. ?Sleepiness. ?Weakness. These symptoms may be an emergency. Do not wait to see if the symptoms will go away. Get medical help right away. Call your local emergency services (911 in the [place] Do not drive yourself to the hospital. Summary Nausea is feeling sick to your stomach or feeling that you are about to throw up (vomit). Vomiting is when food in your stomach is thrown up and out of the mouth. Follow instructions from your doctor about eating and drinking to keep from losing too much water in your body. Take lzxh-dqz-pexcvwp and prescription medicines only as told by your doctor. Contact your doctor if your symptoms get worse or you have new symptoms. Keep all follow-up visits as told by your doctor. This is important. This information is not intended to replace advice given to you by your health care provider. Make sure you discuss any questions you have with your health care provider. Document Released: 11/29/2008 Document Revised: 10/05/2019 Document Reviewed: 11/21/2018 [employer] Patient Education 2020 [employer]. 06/29/2021 11:03:09 Monitored Anesthesia Care, Care After Monitored Anesthesia Care, Care After These instructions provide you with information about caring for yourself after your procedure. Your health care provider may also give you more specific instructions. Your treatment has been planned according to current medical practices, but problems sometimes occur. Call your health care provider if you have any problems or questions after your procedure. What can I expect after the procedure? After your procedure, you may: Feel sleepy for several hours. Feel clumsy and have poor balance for several hours. Feel forgetful about what happened after the procedure. Have poor judgment for several hours. Feel nauseous or vomit. Have a sore throat if you had a breathing tube during the procedure. Follow these instructions at home: For at least 24 hours after the procedure: Have a responsible adult stay with you. It is important to have someone help care for you until you are awake and alert. Rest as needed. Do not: ?Participate in activities in which you could fall or become injured. ?Drive. ?Use heavy machinery. ?Drink alcohol. ?Take sleeping pills or medicines that cause drowsiness. ?Make important decisions or sign legal documents. ?Take care of children on your own. Eating and drinking Follow the diet that is recommended by your health care provider. If you vomit, drink water, juice, or soup when you can drink without vomiting. Make sure you have little or no nausea before eating solid foods. General instructions Take ymry-cvw-ldgwwsh and prescription medicines only as told by your health care provider. If you have sleep apnea, surgery and certain medicines can increase your risk for breathing problems. Follow instructions from your health care provider about wearing your sleep device: ?Anytime you are sleeping, including during daytime naps. ?While taking prescription pain medicines, sleeping medicines, or medicines that make you drowsy. If you smoke, do not smoke without supervision. Keep all follow-up visits as told by your health care provider. This is important. Contact a health care provider if: You keep feeling nauseous or you keep vomiting. You feel light-headed. You develop a rash. You have a fever. Get help right away if: You have trouble breathing. Summary For several hours after your procedure, you may feel sleepy and have poor judgment. Have a responsible adult stay with you for at least 24 hours or until you are awake and alert. This information is not intended to replace advice given to you by your health care provider. Make sure you discuss any questions you have with your health care provider. Document Released: 10/03/2016 Document Revised: 09/11/2018 Document Reviewed: 10/03/2016 [employer] Patient Education 2020 [employer]. 06/29/2021 11:02:29 Colon Polyps Colon Polyps Polyps are tissue growths inside the body. Polyps can grow in many places, including the large intestine (colon). A polyp may be a round bump or a mushroom-shaped growth. You could have one polyp or several. Most colon polyps are noncancerous (benign). However, some colon polyps can become cancerous over time. Finding and removing the polyps early can help prevent this. What are the causes? The exact cause of colon polyps is not known. What increases the risk? You are more likely to develop this condition if you: Have a family history of colon cancer or colon polyps. Are older than 50 or older than 45 if you are . Have inflammatory bowel disease, such as ulcerative colitis or Crohn's disease. Have certain hereditary conditions, such as: ?Familial adenomatous polyposis. ?García syndrome. ?Turcot syndrome. ?Peutz Jeghers syndrome. Are overweight. Smoke cigarettes. Do not get enough exercise. Drink too much alcohol. Eat a diet that is high in fat and red meat and low in fiber. Had childhood cancer that was treated with abdominal radiation. What are the signs or symptoms? Most polyps do not cause symptoms. If you have symptoms, they may include: Blood coming from your rectum when having a bowel movement. Blood in your stool. The stool may look dark red or black. Abdominal pain. A change in bowel habits, such as constipation or diarrhea. How is this diagnosed? This condition is diagnosed with a colonoscopy. This is a procedure in which a lighted, flexible scope is inserted into the anus and then passed into the colon to examine the area. Polyps are sometimes found when a colonoscopy is done as part of routine cancer screening tests. How is this treated? Treatment for this condition involves removing any polyps that are found. Most polyps can be removed during a colonoscopy. Those polyps will then be tested for cancer. Additional treatment may be needed depending on the results of testing. Follow these instructions at home: Lifestyle Maintain a healthy weight, or lose weight if recommended by your health care provider. Exercise every day or as told by your health care provider. Do not use any products that contain nicotine or tobacco, such as cigarettes and e-cigarettes. If you need help quitting, ask your health care provider. If you drink alcohol, limit how much you have: ?0 1 drink a day for women. ? 0 2 drinks a day for men. Be aware of how much alcohol is in your drink. In the [place] one drink equals one 12 oz bottle of beer (355 mL), one 5 oz glass of wine (148 mL), or one 1 oz shot of hard liquor (44 mL). Eating and drinking Eat foods that are high in fiber, such as fruits, vegetables, and whole grains. Eat foods that are high in calcium and vitamin D, such as milk, cheese, yogurt, eggs, liver, fish, and broccoli. Limit foods that are high in fat, such as fried foods and desserts. Limit the amount of red meat and processed meat you eat, such as hot dogs, sausage, pacheco, and lunch meats. General instructions Keep all follow-up visits as told by your health care provider. This is important. ?This includes having regularly scheduled colonoscopies. ?Talk to your health care provider about when you need a colonoscopy. Contact a health care provider if: You have new or worsening bleeding during a bowel movement. You have new or increased blood in your stool. You have a change in bowel habits. You lose weight for no known reason. Summary Polyps are tissue growths inside the body. Polyps can grow in many places, including the colon. Most colon polyps are noncancerous (benign), but some can become cancerous over time. This condition is diagnosed with a colonoscopy. Treatment for this condition involves removing any polyps that are found. Most polyps can be removed during a colonoscopy. This information is not intended to replace advice given to you by your health care provider. Make sure you discuss any questions you have with your health care provider. Document Released: 03/09/2005 Document Revised: 09/28/2018 Document Reviewed: 09/28/2018 [employer] Patient Education 2019 [employer]. Follow Up Care 06/11/2021 08:47:54 With:EDUARDA RANDHAWA MD Address: [phone] When: Unknown Comments:CONTACT DR RANDHAWA WITH ANY QUESTIONS OR GO TO THE EMERGENCY ROOM WITH ANY URGENT MATTERS. [facility] History of Past illness Narrative 06-18-2020 Note Date & Type Note Facility documented as of this encounter (statuses as of 03/12/2022) [facility] Evaluation note Note Date & Type Note Facility documented in this encounter [facility] course Narrative Note Date & Type Note Facility Hospital course Narrative No data available for this section [facility] Reason for referral (narrative) Diagnostic Procedure Only (Urgent) - Closed Note Date & Type Note Facility Referral ID Status Reason Start Date Expiration Date V isits Requested Visits Authorized [id number] Closed Auto-Generate d Referral 03/12/2022 04/11/2023 1 1 [facility] Summary Purpose Family History No Family History Records FoundNo Family History Records Found Advance Directives No Advanced Directives Records FoundDocuments on File Type Date 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 Advance Directive(s) 06/13/2020 3:11 PM Additional Source Comments INFORMATION SOURCE (unrecogn ized section and content) DATE CREATED AUTHOR AUTHOR'S ORGANIZ ATION 03/27/2022 [facility] Source Comments (unrecognize d section and content) In the event this informatio n is protected by the Federal Confidentiality of Alcohol and Drug Abuse Patient Records regulations: The Federal rules restrict any use of the information to criminally investigate or prosecute any alcohol or drug abuse patient.[facility] Reason for Visit (unrecogniz ed section and content) Care Teams (unrecognized sec tion and content) FOR RECORDS PERTAINING TO PATIENTS WHO ARE OR HAVE BEEN ENROLLED IN A CHEMICAL DEPENDENCY/SUBSTANCEABUSE PROGRAM, SOME INFORMATION MAY BE OMITTED. This clinical summary was aggregated from multiple sources. Caution should be exercised in using it in the provision of clinical care. This summary normalizes information from multiple sources, and as a consequence, information in this document may materially change the coding, format and clinical context of patient data. In addition, data may be omitted in some cases. CLINICAL DECISIONS SHOULD BE BASED ON THE PRIMARY CLINICAL RECORDS. [facility]. provides no warranty or guarantee of the accuracy or completeness of information in this document.
== END | disposition home or self-care (01) ==
LOC: PSN 12:29
PROVIDERS: PCP Family Medicine; Referring Provider Physician Assistant; Visit Provider Physician Assistant
DX: Z01.810 Encounter for preprocedural cardiovascular examination (principal)
CPT/HCPCS: 93005

== ENCOUNTER → 2023-12-05 | Outpatient (CLI) | payer MEDICARE, SELFPAY ==
[2020-09-12 09:10] VITALS: BMI 21.6
[2023-12-05 13:17] LABS: Protein, Urine (Random) 9.9 mg/dL (<11.9); Protein:Creat Ratio 147 mg/g CRE (0-200)
[2023-12-05 13:24] LABS: Cholesterol 203 mg/dL (200); High Density Lipoprotein 98 mg/dL; Triglycerides 68 mg/dL; Very Low Density Lipoprotein 14 mg/dL (5-40)
== END | disposition home or self-care (01) ==
LOC: MFPLAB 10:15
PROVIDERS: PCP Family Medicine; Visit Provider Family Medicine
DX: I10 Essential (primary) hypertension (principal)
CPT/HCPCS: 36415; 80061; 82570; 84156

== ENCOUNTER → 2024-02-03 | Outpatient (CLI) | payer MEDICARE, SELFPAY ==
[2020-09-12 09:10] VITALS: BMI 21.6
--- NOTE | 2024-02-03 10:07 | BI_ITS ---
MAMMOGRAPHY - BILATERAL SCREENING 3-D TOMOSYNTHESIS REASON FOR EXAM: Female, 68 years old. SCREENING PERTINENT HISTORY: No significant family history. TECHNIQUE: 2-D mammograms and 3-D Tomosynthesis of the breast (s) were performed. CAD was performed. COMPARISON: 01/20/2023 FINDINGS: The breast composition is composed of scattered fibroglandular density. Scattered benign calcifications are seen. No dense spiculated masses or suspicious microcalcifications are identified. No architectural distortion is identified. There is no skin thickening or retraction. There has been no significant change since the prior study. BI/SCRN MAMM (CAD)W/SAL BILAT IMPRESSION: No mammographic signs of malignancy. Routine yearly mammograms recommended. ASSESSMENT CATEGORY: BIRADS Category 1: Negative. A letter regarding these results will be sent to the patient by the facility within 30 days. FOLLOW UP RECOMMENDATION: Yearly follow up mammogram recommended. (A) Approximately 10% of breast cancers are not detected by mammography. A normal mammogram should not delay biopsy of a clinically suspicious abnormality. Electronically Signed: Brady Ford MD at 13:32 EDT ,
== END | disposition home or self-care (01) ==
LOC: OPBI 10:06
PROVIDERS: PCP Family Medicine; Referring Provider Family Medicine; Visit Provider Family Medicine
DX: Z12.31 Encounter for screening mammogram for malignant neoplasm of breast (principal)
CPT/HCPCS: 77063; 77067

== ENCOUNTER → 2024-06-28 | Outpatient (CLI) | payer MEDICARE, SELFPAY ==
[2020-09-12 09:10] VITALS: BMI 21.6
--- NOTE | 2024-06-28 12:53 | ECHOD_ITS ---
Reason For Study : SYNCOPE Procedure This was a 2D Doppler, Color Flow transthoracic echocardiogram. Exam performed in department. Left Ventricle Normal LV size. Left ventricular systolic function is normal. The left ventricular ejection fraction is 60 %. No regional wall motion abnormalities noted. Right Ventricle Normal RV size. Normal systolic function. Atria Normal left atrium. Normal right atrium. Mitral Valve Mild diffuse mitral valve thickening. Mild (1+) eccentric mitral valve insufficiency. Aortic Valve Peak aortic valve gradient 26 mmHg. Mean aortic valve gradient 15 mmHg. Bioprosthetic aortic valve. Pulmonic Valve Normal pulmonic valve. Great Vessels Mildly dilated aortic root. The pulmonary artery is normal size. Normal inferior vena cava. Pericardium/Pleural No pericardial effusion. MMode/2D Measurements & Calculations LVIDd: 4.7 cm IVSd: 0.80 cm LVOT diam: 2.0 cm LVIDs: 2.7 cm LVPWd: 0.72 cm LVOT area: 3.1 cm2 RVDd: 2.8 cm FS: 42.2 % asc Aorta Diam: 3.0 cm LAV(MOD-bp): 43.0 ml LVAd ap4: 20.0 cm2 LAV(MOD-bp) Indexed: 25.7 ml/m2 LVLd ap4: 6.6 cm LAV(MOD-sp2): 50.6 ml EDV(MOD-sp4): 49.3 ml LAV(MOD-sp4): 33.5 ml EDV(sp4-el): 51.6 ml LVAs ap4: 10.5 cm2 LVLs ap4: 5.3 cm ESV(MOD-sp4): 17.0 ml ESV(sp4-el): 17.5 ml EF(MOD-sp4): 65.6 % EF(sp4-el): 66.0 % SV(MOD-sp4): 32.3 ml SV(MOD-sp2): 24.3 ml LVAd ap2: 17.9 cm2 LVLd ap2: 6.7 cm SI(MOD-sp4): 19.3 ml/m2 SI(MOD-sp2): 14.5 ml/m2 EDV(MOD-sp2): 38.9 ml EDV(sp2-el): 40.3 ml LVAs ap2: 9.7 cm2 LVLs ap2: 5.5 cm ESV(MOD-sp2): 14.5 ml ESV(sp2-el): 14.5 ml EF(MOD-sp2): 62.6 % SV(sp4-el): 34.0 ml Ao sinus diam: 4.[address] Junction: 3.1 cm LA A4 area: 13.4 cm2 LA dimension(2D): 3.6 cm RA A4 area: 11.0 cm2 TAPSE: 1.7 cm Time Measurements MV dec time: 0.21 sec Doppler Measurements & Calculations MV E max hadley: 67.8 cm/sec Lat Peak E' Hadley: 9.8 cm/sec Med Peak E' Hadley: 7.1 cm/sec MV A max hadley: 77.8 cm/sec E/E' lat: 6.9 E/E' med: 9.6 MV E/A: 0.87 Ao V2 max: 257.5 cm/sec LV V1 max: 161.5 cm/sec MV dec slope: 326.8 cm/sec2 Ao max P.6 mmHg LV V1 max P.4 mmHg Ao V2 mean: 186.0 cm/sec LV V1 mean P.8 mmHg Ao mean P.3 mmHg LV V1 mean: 124.6 cm/sec Ao V2 VTI: 53.5 cm LV V1 VTI: 32.7 cm AV (velocity ratio): 0.61 PRAFUL(I,D): 1.9 cm2 PRAFUL(V,D): 2.0 cm2 SV(LVOT): 102.2 ml PA V2 max: 53.4 cm/sec TR max hadley: 203.5 cm/sec TR max P.6 mmHg ECHO/Echo Complete Interpretation Summary Normal LV size. Left ventricular systolic function is normal. The left ventricular ejection fraction is 60 %. Mildly dilated aortic root. Bioprosthetic aortic valve. Mean aortic valve gradient 15 mmHg. Mild (1+) eccentric mitral valve insufficiency. Ordering Physician: Roderick Arteaga Referring Physician: Roderick Arteaga Performed By: Irais Red RDCS
--- NOTE | 2024-06-28 12:53 | CDU_ITS ---
Reason For Study: Syncope Rt. Velocities/BP Lt. Velocities/BP Prox CCA 49.4/9.7 cm/sec. Prox CCA 72.9/16.8 cm/sec. Mid CCA 54.1/12.6 cm/sec. Mid CCA 65.2/15.7 cm/sec. Dist CCA 50.4/14.5 cm/sec. Dist CCA 61.9/16.8 cm/sec. Prox ICA 61.7/19.2 cm/sec. Prox ICA 45.4/15.7 cm/sec. Mid ICA 41.9/12.6 cm/sec. Mid ICA 81.7/22.3 cm/sec. Dist ICA 93.8/23.4 cm/sec. Dist ICA 71.8/23.4 cm/sec. Rt. ICA/CCA = 1.73. Lt. ICA/CCA = 1.25. Prox ECA 62.6/7.8 cm/sec. Prox ECA 59.7/10.2 cm/sec. Rt. Vert. 54.2/13.5 cm/sec. Lt. Vert. 50.9/10.2 cm/sec. Right Extracranial There is intimal thickening but no significant atherosclerotic plaque noted in the right common carotid artery. There is intimal thickening but no significant atherosclerotic plaque noted in the right internal carotid artery. There is intimal thickening but no significant atherosclerotic plaque noted in the right external carotid artery. Antegrade flow is noted in the right vertebral artery. Left Extracranial There is intimal thickening but no significant atherosclerotic plaque noted in the left common carotid artery. There is homogeneous, smooth atherosclerotic plaque noted in the left internal carotid artery. There is intimal thickening but no significant atherosclerotic plaque noted in the left external carotid artery. Antegrade flow is noted in the left vertebral artery. Procedure Carotid Duplex 10283. This is a Carotid Duplex examination using B-mode, color flow and specral Doppler. Exam performed in department. VL/Carotid Duplex Ultrasound Interpretation Summary Normal right extracranial internal carotid. Mild (<50%) stenosis left extracranial internal carotid. Patent and antegrade vertebrals bilaterally. Ordering Physician: Roderick Arteaga Referring Physician: Roderick Arteaga Performed By: Olivia Lo RVT
== END | disposition home or self-care (01) ==
PROVIDERS: PCP Family Medicine; Referring Provider Family Medicine; Visit Provider Family Medicine
DX: R55 Syncope and collapse (principal)
CPT/HCPCS: 93306; 93880

== ENCOUNTER → 2024-09-28 | Outpatient (CLI) | payer MEDICARE, SELFPAY ==
[2020-09-12 09:10] VITALS: BMI 21.6
[2024-09-28 11:52] LABS: Absolute Lymphocyte Count 1.36 X10^3/uL (0.83-4.51); Absolute Neutrophil Count 4.4 X10^3/uL (2.0-7.7); Basophil# 0.04 X10^3/uL; Basophil% 0.6 % (0-1); Eosinophil# 0.32 X10^3/uL; Eosinophils% 4.8 % (0-5); Hemoglobin 14.6 g/dL (12.0-15.0); Lymphocyte # 1.36 X10^3/ul (0.83-4.51); Lymphocyte % 20.5 % (19-41); Mean Corp Hgb Conc 31.7 g/dL (32-36); Mean Corpuscular Hgb 30.8 pg (27.0-32.0); Mean Platelet Vol. 10.6 fl (6.2-12.0); Monocyte# 0.54 X10^3/uL; Monocyte% 8.1 % (0-10); NRBC Flagged by Analyzer 0 % (0-5); Neutrophil # 4.35 X10^3/uL (2.7-7.7); Neutrophil % 65.5 % (47-70); Platelet Count 167 K/mm3 (150-450); RBC Distribution Width SD 46.7 fl (35.1-43.9); Red Blood Count 4.74 M/mm3 (4.2-5.4); White Blood Count 6.6 K/mm3 (4.4-11.0)
[2024-09-28 12:33] LABS: Thyroid Stim Hormone (TSH) 0.885 uIU/mL (0.300-4.200)
== END | disposition home or self-care (01) ==
LOC: LAB 11:10
PROVIDERS: PCP Family Medicine; Referring Provider Student in an Organized Health Care Education/Training Program; Visit Provider Student in an Organized Health Care Education/Training Program
DX: R53.83 Other fatigue (principal)
CPT/HCPCS: 36415; 84443; 85025

== ENCOUNTER 2024-12-20 08:22 | Outpatient (CLI) | payer MEDICARE, SELFPAY ==
[2020-09-12 09:10] VITALS: BMI 21.6
[2024-12-20 09:55] LABS: Absolute Lymphocyte Count 1.84 X10^3/uL (0.83-4.51); Absolute Neutrophil Count 4.6 X10^3/uL (2.0-7.7); Basophil# 0.03 X10^3/uL; Basophil% 0.4 % (0-1); Eosinophil# 0.24 X10^3/uL; Eosinophils% 3.3 % (0-5); Hematocrit 45.3 % (37-47); Hemoglobin 14.7 g/dL (12.0-15.0); Lymphocyte # 1.84 X10^3/ul (0.83-4.51); Lymphocyte % 25.3 % (19-41); Mean Corp Hgb Conc 32.5 g/dL (32-36); Mean Corpuscular Hgb 31.5 pg (27.0-32.0); Mean Platelet Vol. 10.7 fl (6.2-12.0); Monocyte# 0.56 X10^3/uL; Monocyte% 7.7 % (0-10); NRBC Flagged by Analyzer 0 % (0-5); Neutrophil # 4.58 X10^3/uL (2.7-7.7); Neutrophil % 63.2 % (47-70); Platelet Count 175 K/mm3 (150-450); RBC Distribution Width CV 13.7 % (11.6-14.6); RBC Distribution Width SD 48.7 fl (35.1-43.9); Red Blood Count 4.67 M/mm3 (4.2-5.4); White Blood Count 7.3 K/mm3 (4.4-11.0)
[2024-12-20 11:06] LABS: ALB/GLOB Ratio 2.2 RATIO (0.9-2.4); AST(SGOT) 27 U/L (<=31); Alanine Aminotransfer ALT/SGPT 30 U/L (<=34); Albumin, Serum 4.3 g/dL (3.4-4.8); Alkaline Phosphatase 54 U/L (35-104); Anion Gap 9 (5-15); BUN 15 mg/dL (4-19); BUN/Creat Ratio 17.7 RATIO (10-20); Calcium,Total 9.2 mg/dL (7.6-11.0); Carbon Dioxide 27.9 mmol/L (21.0-32.0); Chloride 106 mmol/L (98-108); Creatinine, Serum 0.87 mg/dL (0.70-1.20); EST Glomerular Filtration Rate 73 (>60); Globulin 1.9 g/dL (2.2-4.2); Glucose 84 mg/dL (70-99); Protein, Total 6.2 g/dL (5.9-8.4); Sodium Level 143 mmol/L (133-145); Total Bilirubin 0.29 mg/dL (0.00-1.30)
[2024-12-20 12:22] LABS: Cholesterol 208 mg/dL (<=200); High Density Lipoprotein 101 mg/dL; Low Density Lipoprotein Calc. 91 mg/dL; Triglycerides 79 mg/dL; Very Low Density Lipoprotein 16 mg/dL (5-40); cholesterol:hdl ratio screen 2.06
== END 2024-12-20 23:59 | disposition home or self-care (01) ==
LOC: LAB 08:23
PROVIDERS: PCP Family Medicine; Referring Provider Family Medicine; Visit Provider Family Medicine
DX: M81.0 Age-related osteoporosis without current pathological fracture (principal); I10 Essential (primary) hypertension; E04.1 Nontoxic single thyroid nodule
CPT/HCPCS: 36415; 80053; 80061; 82306; 84443; 85025

== ENCOUNTER → 2025-02-14 | Outpatient (CLI) | payer MEDICARE, SELFPAY ==
[2020-09-12 09:10] VITALS: BMI 21.6
--- NOTE | 2025-02-14 14:21 | BD_ITS ---
PROCEDURE: DEXA BONE DENSITY STUDY 02/14/2025 REASON FOR EXAM: F, age 69 y/o . Postmenopausal. TECHNIQUE: DEXA BONE DENSITY STUDY COMPARISON: Prior study dated January 20, 2002 3. FINDINGS: BMD and T-SCORES Lumbar spine: 0.888 g/cm2, T-score -1.4 Levels: L1 through L4 Change from prior: Improvement of 8.4%. Left femoral neck: 0.613 g/cm2, T-score -2.1 Femoral neck comparison data not recommended for monitoring change. Left total hip: 0.746 g/cm2, T-score -1.6 Change from prior: Loss of 3.4%. Right femoral neck: 0.601 g/cm2, T-score -2.2 Femoral neck comparison data not recommended for monitoring change. Right total hip: 0.714 g/cm2, T-score -1.9 Change from prior: Improvement of 0.6%. The World Health Organization has defined the following categories based on bone density: Normal bone density: T-score equal to or greater than -1.0 Osteopenia: T-score between -1.0 and -2.5 Osteoporosis: T-score equal to or less than -2.5 FRAX (or Comparable) Fracture Risk Assessment: 10 Year Probability of Fracture: Major Osteoporotic Fracture: 18%% Hip Fracture: 3 1% (Note: FRAX is not to be reported in setting of normal range bone density, osteoporosis on DEXA, known history of osteoporosis, prior osteoporotic hip or vertebral fracture, or for any patient undergoing pharmacological treatment for bone loss.) The National Osteoporosis Foundation (NOF) recommends pharmacological treatment for patients with a FRAX 10-year risk of 3% or higher for a hip fracture, or 20% or higher for a major osteoporotic fracture, to prevent osteoporosis and reduce fracture risk. The patient does meet the pharmacological treatment recommendations for prevention of osteoporosis. BD/Dexa Bone Density Study IMPRESSION: OSTEOPENIA. Recommend follow-up as clinically warranted. Reading Location: [id number]
--- NOTE | 2025-02-14 14:21 | BI_ITS ---
EXAM: SCRN MAMM (CAD)W/SAL BILAT DATE: 02/14/2025 CLINICAL HISTORY: F, Age 69 y/o , SCREENING No family history. TECHNIQUE: SCRN MAMM (CAD)W/SAL BILAT COMPARISON: Prior exam(s) dated February 03, 2024.. FINDINGS: TISSUE DENSITY: The breasts are heterogeneously dense, which may obscure small masses. Bilateral Breast Mammographic Findings: No significant masses, calcifications or other abnormalities are identified. No suspicious masses, areas of developing architectural distortion, or suspicious calcifications. There has been no significant interval change. BI/SCRN MAMM (CAD)W/SAL BILAT IMPRESSION: Stable examination. OVERALL FINAL ASSESSMENT BI-RADS 1: NEGATIVE. RECOMMENDATION: Routine annual follow-up in 1 Year A letter with findings and recommendations will be mailed to the patient. Reading Location: [id number]
== END | disposition home or self-care (01) ==
LOC: OPBD 14:20
PROVIDERS: PCP Family Medicine; Referring Provider Family Medicine; Visit Provider Family Medicine
DX: Z12.31 Encounter for screening mammogram for malignant neoplasm of breast (principal); M81.0 Age-related osteoporosis without current pathological fracture
CPT/HCPCS: 77063; 77067; 77080

== ENCOUNTER → 2025-04-30 | Outpatient (CLI) | payer MEDICARE, SELFPAY ==
[2020-09-12 09:10] VITALS: BMI 21.6
--- NOTE | 2025-04-30 17:14 | RAD_ITS ---
RAD/Ribs Uni Min 3V w/PA Chest
== END | disposition home or self-care (01) ==
LOC: MTRAD 16:44
PROVIDERS: PCP Family Medicine
DX: R07.89 Other chest pain (principal)
CPT/HCPCS: 71101

== ENCOUNTER → 2025-05-28 | Outpatient (CLI) | payer MEDICARE, SELFPAY ==
[2020-09-12 09:10] VITALS: BMI 21.6
--- NOTE | 2025-05-28 18:29 | CT_ITS ---
PROCEDURE: EXTREMITY UPPER WITHOUT CONTRA 05/28/2025 REASON FOR EXAM: BLUE PRINT PROTOCOL TECHNIQUE: Procedure Code: [id number] Modality: CT Procedure: EXTREMITY UPPER WITHOUT CONTRA Coronal and Sagittal reconstruction series were provided. One or more dose reduction techniques were used (e.g., Automated exposure control, adjustment of the mA and/or kV according to patient size, use of iterative reconstruction technique. RADIATION DOSE SUMMARY: DLP: 461 mGycm COMPARISON: None FINDINGS: Bones: There is loss of the subacromial space consistent with rotator cuff disease. There is no fracture or dislocation identified. The AC joint is aligned. There is a type 3 acromion. 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 Minimal osteophyte formation is noted. Soft Tissues: There is visible supraspinatus muscular atrophy. Included portion of the right lung is clear. Mineralization is normal. Atherosclerotic calcifications are visible. CT/Extremity Upper without Contra IMPRESSION: There is loss of the subacromial space consistent with rotator cuff disease. There is a visible supraspinatus muscular atrophy. 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 Reading Location: [facility]
--- OUTSIDE RECORDS SUMMARY | 2025-05-28 18:46 | XMS RPT_ITS | CCD ---
Author Organization [facility] Care Team Providers Care Truckload Owner Operator Name Role Phone Leisa Edwards Unavailable Unavailable Xi RN, Paula Kennedy Unavailable Unavailable Chas BOBJ DEVELOPER, Live Cuevas Unavailable MER Walsh, Yasmin Limon Unavailable UnavailTrinity Sims Unavailable Unavailable MER Walsh, Yasmin Limon Unavailable UnavailDR ASTER Milner MD Primary Care Physician Dr. Aster Faust Primary Care Provider Dr. Aster Faust Referring Provider Dr. Hal Barnett Attending Provider Aster Faust Primary Care Provider Hal Barnett Unavailable ASTER FAUST Primary Care Unavailable NORMA MORAES Referring Unavailable ASTER FAUST Primary Care Unavailable Aster Faust Primary Care Provider [phone] Hal Barnett MD Unavailable RODERICK LEWIS MD Primary Care Physician DR EDUARDA RANDHAWA MD Attending UnavailRODERICK Giang MD Primary Care Unavailable Williams Esteban MD Unavailable NONE, NONE Unavailable Unavailable Roderick Lewis MD Unavailable Roderick Lewis Primary Care Unavailable Aric Romero Attending Unavailable Roderick Lewis Referring Unavailable Boogie Saucedo Attending Unavailable Roderick Lewis Primary Care Unavailable Boogie Saucedo Attending Unavailable Jenni, Chalon Primary Care Unavailable Jenni, Chalon Primary Care Unavailable Jenni, Chalon Attending Unavailable Jenni, Chalon Referring Unavailable Jenni, Chalon Primary Care Unavailable Jenni, Chalon Attending Unavailable Jenni, Chalon Referring Unavailable McMorrow, Travis Attending Unavailable McMorrow, Travis Referring Unavailable Jenni, Chalon Primary Care Unavailable Jenni, Chalon Primary Care Unavailable Jenni, Chalon Attending Unavailable Jenni, Chalon Referring Unavailable Jenni, Chalon Primary Care Unavailable DemiterFranEsvin Attending Unavailable Demiter, Esvin Referring Unavailable Jolliff, Aster S Referring Unavailable Jenni, Chalon Primary Care Unavailable DemiterFranEsvin Attending Unavailable Piter Castillo Attending Unavailable Jenni, Chalon Primary Care Unavailable Jenni, Chalon Primary Care Unavailable Boogie Saucedo Attending Unavailable Jenni, Chalon Primary Care Unavailable Boogie Saucedo Attending Unavailable Allergies Allergy Classification Reported Allergen(s) Allergy Type Date of Onset Reaction(s) Facility (15 sources) amoxicillin; Translations: [Amoxicillin] drug allergy 10-27-19 12 Rash [facility] Work Phone: (15 sources) clindamycin; Translations: [Clindamycin] drug allergy 10-27-19 12 Diarrhea, Vomiting [facility] Work Phone: (11 sources) NIFEdipine; Translations: [Nifedipine] drug allergy 10-27-19 12 Vomiting [facility] Work Phone: (6 sources) Sulfonamides (Antibiotic) drug allergy 10-27-19 12 rash [facility] Work Phone: (2 sources) Cefuroxime; Translations: [cefuroxime] Drug Allergy [facility] (4 sources) NITROFURANTOIN, MACROCRYSTALS / Nitrofurantoin, Monohydrate; Translations: [nitrofurantoin] Drug Allergy 04-02-20 16 Vomiting [facility] (3 sources) Penicillin; Translations: [penicillin] Drug Allergy 04-26-20 25 [facility] (2 sources) rofecoxib; Translations: [rofecoxib] Drug Allergy [facility] (2 sources) Sulfamethoxazole; Translations: [sulfamethoxazole] Drug Allergy [facility] (2 sources) valdecoxib; Translations: [valdecoxib] Drug Allergy [facility] (7 sources) Cephalosporins (Antibiotic); Translations: [CEPHALOSPORINS] Allergy to substance 04-02-20 16 [facility] (3 sources) montelukast Drug Allergy 01-29-20 21 Unknown [facility] Work Phone: (6 sources) Naproxen; Translations: [NAPROXEN] Drug Allergy 04-02-20 16 [facility] (3 sources) NIFEdipine Drug Allergy 01-29-20 21 Vomiting, Hypotension [facility] Work Phone: (3 sources) Nitrofurantoin Drug Allergy 01-29-20 21 N/V [facility] Work Phone: (7 sources) Sulfonamides (Antibiotic); Translations: [SULFA (SULFONAMIDE ANTIBIOTICS)] Propensity to adverse reactions 04-02-20 16 [facility] (3 sources) Cefuroxime; Translations: [CEFUROXIME AXETIL] Drug Allergy 04-02-20 16 [facility] (3 sources) loracarbef; Translations: [LORACARBEF] Drug Allergy 07-01-19 21 [facility] Work Phone: (3 sources) montelukast; Translations: [MONTELUKAST SODIUM] Drug Allergy 04-02-20 16 [facility] (3 sources) Penicillins; Translations: [PENICILLINS] Drug Allergy 04-02-20 16 [facility] (1 source) NITROFURANTOIN MONOHYD/M-CRYST; Translations: [NITROFURANTOIN MONOHYD/M-CRYST] Propensity to adverse reactions to drug (disorder) 04-02-20 16 [facility] (1 source) House dust mite Drug allergy (disorder) 04-26-20 [facility] (1 source) Mold Extract Drug Allergy 04-26-20 [facility] (1 source) NSAIDs Drug allergy (disorder) 04-26-20 [facility] (1 source) Tetracycline Drug Allergy 04-26-20 [facility] (1 source) GUINEA PIGS Drug allergy (disorder) 04-26-20 [facility] (1 source) PLANT POLLENS Food allergy (disorder) 04-26-20 [facility] (1 source) montelukast Drug Allergy 01-18-20 [facility] (1 source) Naproxen Drug Allergy 01-18-20 [facility] (1 source) NIFEdipine Drug Allergy 01-18-20 [facility] (1 source) Nitrofurantoin Drug Allergy 01-18-20 [facility] Medications Current Medications Medication Drug Class(es) Dates Sig (Normalized) Sig (Original) alendronic acid 70 mg oral tablet (2 sources) Bisphosphonate Start: 07-16-2024 alendronate 70 mg oral tablet 0 Refill(s) Start Date: 07/16/24 Status: Ordered Repeat number: 1 aspirin 81 mg oral tablet (18 sources) Nonsteroidal Anti-inflammatory Drug Start: 08-28-2018 Adult Aspirin 81 mg oral tablet, chewable Dose : 81 mg = 1 tab(s), Chewed, qDay, 0 Refill(s) Start Date: 08/28/18 Status: Ordered Repeat number: 1 Start: 08-28-2018 Adult Aspirin 81 mg oral tablet, chewable Dose : 81 mg = 1 tab(s), Chewed, qDay, 0 Refill(s) Start Date: 08/28/18 Status: Ordered Start: 12-27-2017 take 81 mg by mouth once daily Aspirin Active 81 MG PO daily December 27, 2017 12:00am Start: 10-27-2011 take 1 tablet by gautam th once daily ASPIRIN 81 MG TABS One tablet by mouth daily ASPIRIN [id number] Paula Layne RN Start: 10-27-2011 take 1 tablet by gautam th once daily ASPIRIN 81 MG TABS One tablet by mouth daily ASPIRIN [id number] Paula Layne RN Start: 10-27-2011 take 1 tablet by gautam th once daily ASPIRIN EC 81 MG TBEC One tablet by mouth daily ASPIRIN [id number] Paula Layne RN Comment on above: Take 81 mg by mouth once daily. 24 hr buPROPion hydrochloride 150 mg extended release oral tablet (20 sources) Aminoketone Start: take 1 tablet by mouth every hour, then take 2 tablets by mouth every twenty-four hours Wellbutrin XL 150 mg/24 hours oral tablet, extended release Dose : 300 mg = 2 tab(s), Oral, q24h, # 30 tab(s), 0 Refill(s) Start Date: 08/28/18 Status: Ordered Quantity: 30.0 Unit: tab(s) Repeat number: 1 Start: 12-27-2017 take 1 tablet by gautam th once daily buPROPion XL (WELLBUTRIN XL) 300 mg 24 hr tablet Take 1 tablet by mouth once daily. 06/23/2020 Active Start: 10-27-2011 take 1 tablet by gautam th once daily WELLBUTRIN SR 150 MG [id number] One tablet by mouth daily BUPROPION HCL [id number] Paula Layne RN Start: 10-27-2011 take 1 tablet by gautam th once daily in the morning WELLBUTRIN XL 300 MG [id number] One tablet by mouth daily in the morning BUPROPION HCL [id number] Hal Barnett MD Start: 10-27-2011 take 1 tablet by gautam th once daily in the morning WELLBUTRIN XL 300 MG [id number] One tablet by mouth daily in the morning BUPROPION HCL [id number] Hal Barnett MD Start: 10-27-2011 take 1 tablet by gautam th once daily WELLBUTRIN SR 150 MG [id number] One tablet by mouth daily BUPROPION HCL [id number] Paula Layne RN Wellbutrin XL 30 0 mg 24 hr tablet, extended release active Olivia Esparza AT [facility] Comment on above: Take 1 tablet by gautam th once daily. cholecalciferol 0.025 mg oral tablet (5 sources) Vitamin D Start: 12-28-19 take 1000 [IU] by mouth once daily Cholecalciferol (Vitamin D3) Active 1000 UNIT PO daily December 27, 2017 12:00am Comment on above: Take 1,000 Units by mouth once daily. colchicine 0.6 mg oral tablet (5 sources) Start: 06-24-20 End: 07-30-19 21 take 1 tablet by mouth once daily colchicine 0.6 mg tablet Take 1 tablet by mouth once daily. 21 tablet 06/24/2020 Active Comment on above: Take 1 tablet by gautam th once daily. cyclobenzaprine hydrochloride 5 mg oral tablet (2 sources) Muscle Relaxant take 5 mg by mouth three times daily cyclobenzaprine HCl (FLEXERIL ORAL) Take 5 mg by mouth three times daily. Active Comment on above: Take 5 mg by mouth t hree times daily. D3 (2 sources) Start: 06-29-19 D3 1000 IU, Oral, qDay, 0 Refill(s) Start Date: 06/29/21 Status: Ordered Repeat number: 1 Start: 06-29-2021 D3 1000 IU, Or al, qDay, 0 Refill(s) Start Date: 06/29/21 Status: Ordered dilTIAZem hydrochloride 120 mg oral tablet (12 sources) Calcium Channel Adele Start: 06-29-2021 Cardizem Dose : 120 mg =, Oral, qDayM, 0 Refill(s) Start Date: 06/29/21 Status: Ordered Repeat number: 1 Start: 08-19-2020 End: 10-13-2021 take 120 mg by mouth once daily Diltiazem Hcl Discontinued 120 MG PO DAILY 90 September 30, 2020 10:50am October 13, 2021 10:30am diltiazem ER (XR /XT) 120 mg capsule,extended release 24 hr, controlled active Olivia Esparza AT [facility] estradiol 0.1 mg/ml vaginal cream (20 sources) Estrogen Start: 02-01-2022 Estradiol Acti ve 1 GM VAGINAL TWICE A WEEK February 01, 2022 12:00am Start: 06-29-2021 estradiol 0.1 mg/g vaginal cream Dose = 1 appl, Vaginal, 2X/week, 0 Refill(s) Start Date: 06/29/21 Status: Ordered Repeat number: 1 Start: 12-27-2017 End: 02-01-2022 Estradiol (Estring) 2 mg (7. 5 mcg /24 hour) ring Discontinued 1 VAG RING VAGINAL every 3 months December 27, 2017 12:00am February 01, 2022 9:38am Start: 02-28-2016 ESTRING 2 mg v aginal ring 02/28/2016 Active Start: 11-17-2012 ESTRING RING t merced as directed ESTRADIOL RING [id number] Hal Barnett MD Start: 10-27-2011 VAGIFEM TABS t merced as directed ESTRADIOL TABS [id number] Paula Layne RN Start: 10-27-2011 End: 11-17-2012 VAGIFEM TABS take as directe d ESTRADIOL TABS [id number] Hal Barnett MD estradiol 0.01% (0.1 mg/gram) vaginal cream active Olivia Esparza AT [facility] estradiol 0.1 mg/g vaginal cream (1 source) Start: 06-29-2021 estradiol 0.1 mg/g vaginal cream Dose = 1 appl, Vaginal, 2X/week, 0 Refill(s) Start Date: 06/29/21 Status: Ordered fluticasone propionate 0.05 mg/actuat metered dose nasal spray (14 sources) Corticosteroid Start: 06-29-2021 take 1 dose nasal route twice daily fluticasone proprionate NASAL 50 mcg/ spray Dose = 2 spray(s), Nostril, each, BID, 0 Refill(s) Start Date: 06/29/21 Status: Ordered Repeat number: 1 Start: 12-27-2017 End: 01-31-2019 Fluticasone Propionate (Flon ase Allergy Relief) 50 mcg/actuation spray,suspension Active 2 SPRAY INTRANASAL daily January 31, 2019 1:49pm Start: 10-27-2011 FLONASE 50 MCG /ACT SUSP Take as directed FLUTICASONE PROPIONATE [id number] Paula Layne RN Start: 10-27-2011 FLONASE 50 MCG /ACT SUSP Take as directed FLUTICASONE PROPIONATE [id number] Paula Layne RN fluticasone proprionate NASAL 50 mcg/ spray (1 source) Start: 06-29-2021 take 1 dose nasal route twice daily fluticasone proprionate NASAL 50 mcg/ spray Dose = 2 spray(s), Nostril, each, BID, 0 Refill(s) Start Date: 06/29/21 Status: Ordered Lactobac comb 0-DMF-ncdpoyjjtq (PROBIOTIC AND ACIDOPHILUS) 300-250 million cell-mg cap (2 sources) Start: 06-23-2020 take 1 capsule by mouth once daily Lactobac comb 3-GSI-nnaolzhjil (PROBIOTIC AND ACIDOPHILUS) 300-250 million cell-mg cap Take 1 capsule by mouth once daily. 06/23/2020 Active Start: 06-23-[address] [facility] once daily Lactobac comb 5-JIO-llmittepje (PROBIOTIC AND ACIDOPHILUS) 300-250 million cell-mg cap Take 1 capsule by mouth once daily. 0 06/23/2020 Active Comment on above: Take [address] [facility] once daily. Lactobacillus Combination No.8 (Adult Probiotic) 3 billion cell capsule (3 sources) Start: 8 take 3 capsules by mouth once daily Lactobacillus Combination No.8 (Adult Probiotic) 3 billion cell capsule Active 3000 MMU CELLS PO daily December 27, 2017 8:39am Start: 12-27-2017 take 3 capsules by [facility] once daily Lactobacillus Combination No.8 (Adult Probiotic) 3 billion cell capsule Active 3000 MMU CELLS PO daily December 27, 2017 12:00am Multivitamin preparation (3 sources) Start: 12-27-2017 take 1 tablet by mouth once daily Multivitamin Active 1 TABLET PO daily December 27, 2017 8:29am Start: 12-27-2017 take 1 tablet by gautam th once daily Multivitamin Active 1 TABLET PO daily December 27, 2017 12:00am multivitamin tablet (2 sources) take 1 tablet by gautam th once daily multivitamin tablet Take 1 tablet by mouth once daily. Active take 1 tablet by mouth once javad y multivitamin tablet Take 1 tablet by mouth once daily. 0 Active Comment on above: Take 1 tablet by gautam th once daily. olopatadine hydrochloride 0.665 mg/actuat metered dose nasal spray (4 sources) Histamine-1 Receptor Inhibitor Start: 2 take 1 spray(s) nasal route twice daily Olopatadine Active 2 SPRAY INTRANASAL TWICE A DAY February 01, 2022 12:00am administer into each nostril Start: 12-30-2017 End: 01-28-2021 Olopatadine Discontinued 2 S PRAY INTRANASAL daily December 30, 2017 12:00am January 28, 2021 2:33pm omeprazole 40 mg delayed release oral capsule (4 sources) Proton Pump Inhibitor Start: 02-01-2022 take 40 mg by mouth once daily Omeprazole Active 40 MG PO DAILY February 01, 2022 12:00am OMEPRAZOLE ORAL Take by mouth. Active OMEPRAZOLE ORAL Take by mouth. 0 Active Comment on above: Take by mouth. OTC NUTRITIONAL SUPPLEMENT (2 sources) OTC NUTRITIONAL SUPPLEMENT Fibrocare -magnesium and malic acid supplement 2 tablets twice daily Active OTC NUTRITIONAL SUPPLEMENT Fibrocare -magnesium and malic acid supplement 2 tablets twice daily 0 Active Comment on above: Fibrocare -magnesium and malic acid supplement 2 tablets twice daily pantoprazole 40 mg delayed release oral tablet (13 sources) Proton Pump Inhibitor Start: 2 End: 2 pantoprazole 40 mg oral enteric coated tablet Dose : 40 mg = 1 tab(s), Oral, qDay, # 30 tab(s), 0 Refill(s) Start Date: 08/28/18 Status: Ordered Quantity: 30.0 Unit: tab(s) Repeat number: 1 Comment on above: 1 tablet every pm polyethylene glycol 3350 96446 mg powder for oral solution (9 sources) Osmotic Laxative Start: 2 take 17 doses by mouth twice daily MiraLax oral powder for reconstitution Dose : 17 gram(s) =, Oral, BID, # 238 gram(s), 0 Refill(s) Start Date: 06/29/21 Status: Ordered Quantity: 238.0 Unit: g Repeat number: 1 Start: 12-27-2017 take 1 dose by mouth once daily polyethylene glycol 3350 (MIRALAX) 17 gram packet Take 1 Packet by mouth once daily. 06/23/2020 Active Start: 10-27-2011 MIRALAX PACK T merced as directed POLYETHYLENE GLYCOL 3350 [id number] Paula Layne RN Comment on above: Take 1 Packet by gautam once daily. Probiotic (2 sources) Start: 06-29-2021 Probiotic 1 mi llion to 10 billion, Oral, Daily, 0 Refill(s) Start Date: 06/29/21 Status: Ordered Repeat number: 1 Start: 06-29-2021 Probiotic 1 mi llion to 10 billion, Oral, Daily, 0 Refill(s) Start Date: 06/29/21 Status: Ordered sertraline 100 mg oral tablet (20 sources) Serotonin Reuptake Inhibitor Start: 07-30-2020 take 150 mg by mouth at bedtime Sertraline Active 150 MG PO AT BEDTIME July 30, 2020 4:31pm Start: 12-27-2017 End: 07-30-2020 Zoloft 100 mg oral tablet Do se : 150 mg = 1.5 tab(s), Oral, qDay, # 30 tab(s), 0 Refill(s) Start Date: 08/28/18 Status: Ordered Quantity: 30.0 Unit: tab(s) Repeat number: 1 Start: 10-27-2011 take 1 tablet by gautam th at bedtime ZOLOFT 100 MG TABS One tablet by mouth at bedtime. SERTRALINE HCL [id number] Hal Barnett MD Start: 10-27-2011 ZOLOFT 100 MG TABS One and one- half tablet by mouth daily SERTRALINE HCL [id number] Paula Layne RN take 150 mg by mouth once daily sertraline HCl (ZOLOFT ORAL) Take 150 mg by mouth once daily. Active Comment on above: Take 150 mg by mouth once daily. sodium chloride 0.111 meq/ml nasal spray (2 sources) Start: 06-23-2020 take 2 spray(s) nasal route three times daily sodium chloride (AYR, OCEAN) 0.65 % nasal spray Use 2 Sprays in each nostril three times daily. 06/23/2020 Active Comment on above: Use 2 Sprays in each nostril three times daily. Completed/Discontinued Medications Medication Drug Class(es) Dates Sig (Normalized) Sig (Original) acetaminophen 500 mg oral tablet (17 sources) Start: 06-30-2020 End: 07-30-2020 take 500-1000 mg by mouth every six hours as needed Acetaminophen Discontinued 500 - 1000 MG PO EVERY 6 HOURS NEEDED July 15, 2020 1:00am July 30, 2020 4:32pm Start: 06-23-2020 take 2 tablets by mo uth every eight hours as needed acetaminophen (TYLENOL) 500 mg tablet Take 2 tablets by mouth every 8 hours as needed (for mild pain; do not exceed more than 4000mg of Tylenol in 24 hour period.). 06/23/2020 Active Start: 12-27-2017 End: 12-30-2017 take 1000 mg by mouth every six hours Acetaminophen Discontinued 1000 MG PO EVERY 6 HOURS December 27, 2017 12:00am December 30, 2017 1:11pm Start: 12-15-2015 take 2 tablets by mo uth once daily as needed ACETAMINOPHEN ER 650 MG CR-TABS Two tablets by mouth daily as needed ACETAMINOPHEN [id number] Hal Barnett MD Comment on above: Take 2 tablets by mo uth every 8 hours as needed (for mild pain; do not exceed more than 4000mg of Tylenol in 24 hour period.). amitriptyline hydrochloride 25 mg oral tablet (9 sources) Tricyclic Antidepressant Start: 12-28-19 18 End: 12-31-19 18 take 12.5 mg by mouth once daily Amitriptyline Discontinued 12.5 MG PO daily December 27, 2017 12:00am December 30, 2017 1:11pm Start: 12-15-2015 take 1-0.5 tablets b y mouth at bedtime as needed AMITRIPTYLINE HCL 25 MG TABS One half to one tablet by mouth at bedtime as needed AMITRIPTYLINE HCL [id number] Hal Barnett MD azelastine hydrochloride 0.206 mg/actuat metered dose nasal spray (12 sources) Histamine-1 Receptor Antagonist Start: 12-27-2017 End: 12-30-2017 Azelastine (Astepro) 0.15 % (205.5 mcg) spray,non-aerosol Discontinued 1 SPRAY INTRANASAL TWICE A DAY December 27, 2017 12:00am December 30, 2017 1:11pm Start: 11-17-2012 ASTEPRO SOLN a s directed for allergies AZELASTINE HCL SOLN [id number] Hal Barnett MD Start: 11-17-2012 ASTEPRO SOLN a s needed for allergies AZELASTINE HCL SOLN [id number] Hal Barnett MD azithromycin 250 mg oral tablet (5 sources) Macrolide Antimicrobial Start: 02-01-2022 End: 02-01-2022 take 500 mg by mouth every hour Azithromycin Discontinued 500 MG PO .COMPLEX February 01, 2022 9:38am February 01, 2022 9:41am 500 mg orally take 1 HR prior to dental procedure; Start: 01-31-2019 End: 02-01-2022 take 250 mg by mouth every hour Azithromycin Active 250 MG PO .COMPLEX February 01, 2022 9:41am 250 mg orally take 1 HR prior to dental procedure; GLUCOSAMINE-CHONDROITIN CAPS (9 sources) Start: 12-02-2014 End: 01-14-2017 take 1 tablet by mouth twice daily GLUCOSAMINE-CHONDROITIN CAPS One tablet by mouth twice daily GLUCOSAMINE-CHONDROITIN CAPS [id number] Hal Barnett MD Start: 12-02-2014 take 1 tablet by [facility] twice daily GLUCOSAMINE-CHONDROITIN CAPS One tablet by mouth twice daily GLUCOSAMINE-CHONDROITIN CAPS [id number] Hal Barnett MD diclofenac sodium 0.01 mg/mg topical gel (3 sources) Nonsteroidal Anti-inflammatory Drug Start: 12-30-2017 End: 07-30-2020 apply 2 g topically once Diclofenac Sodium (Voltaren) 1 % gel Discontinued 2 GM TOPICAL ONCE December 30, 2017 12:00am July 30, 2020 4:29pm esomeprazole 40 mg delayed release oral capsule (6 sources) Proton Pump Inhibitor Start: 10-27-2011 take 1 capsule by mouth once daily NEXIUM 40 MG CPDR One capsule by mouth daily ESOMEPRAZOLE MAGNESIUM [id number] Paula Layne RN Start: 10-27-2011 take 1 capsule by mo [facility] once daily NEXIUM 40 MG CPDR One capsule by mouth daily ESOMEPRAZOLE MAGNESIUM [id number] Paula Layne RN fexofenadine hydrochloride 60 mg oral tablet (15 sources) Histamine-1 Receptor Antagonist Start: 06-30-2020 End: 01-28-2021 take 60 mg by mouth twice daily Fexofenadine Discontinued 60 MG PO TWICE A DAY June 30, 2020 1:00am January 28, 2021 2:32pm Start: 10-27-2011 End: 11-17-2012 take 1 tablet by mouth once daily KISHOR 180 MG TABS One tablet by mouth daily FEXOFENADINE HCL Paula Layne RN fish oil (6 sources) Start: 10-27-2011 take 1 capsule by mouth twice daily FISH OIL CAPS One capsule by mouth twice daily OMEGA-3 FATTY ACIDS CAPS [id number] Paula Layne RN furosemide 20 mg oral tablet (3 sources) Loop Diuretic Start: 06-30-2020 End: 07-30-2020 take 20 mg by mouth once daily Furosemide Discontinued 20 MG PO DAILY June 30, 2020 1:00am July 30, 2020 4:31pm gabapentin 100 mg oral capsule (3 sources) Anti-epilepti c Agent Start: 06-30-2020 End: 07-30-2020 take 200 mg by mouth twice daily Gabapentin Discontinued 200 MG PO TWICE A DAY June 30, 2020 1:00am July 30, 2020 4:31pm glucosamine sulfate 1000 mg oral capsule (6 sources) Start: 12-02-2014 take 1 tablet by mouth twice daily GLUCOSAMINE SULFATE 1000 MG CAPS One tablet by mouth twice daily GLUCOSAMINE SULFATE [id number] Hal Barnett MD hydroCHLOROthiazide 12.5 mg oral tablet (12 sources) Thiazide Diuretic Start: 10-27-2011 End: 12-02-2014 take 1 tablet by mouth once daily HYDROCHLOROTHIAZIDE 12.5 MG TABS One tablet by mouth daily HYDROCHLOROTHIAZIDE [id number] Hal Barnett MD ammonium lactate 120 mg/ml topical cream (12 sources) Start: 10-27-2011 End: 11-17-2012 LAC-HYDRIN 12 % CREA apply as directed AMMONIUM LACTATE [id number] Paula Layne RN Start: 10-27-2011 LAC-HYDRIN 12 % CREA apply as directed AMMONIUM LACTATE [id number] Paula Layne RN Start: 10-27-2011 End: 11-17-2012 LAC-HYDRIN 12 % CREA apply a s directed AMMONIUM LACTATE [id number] Hal Barnett MD metoprolol tartrate 25 mg oral tablet (8 sources) beta-Adrenergic Adele Start: 06-30-2020 End: 08-14-2020 take 25 mg by mouth twice daily Metoprolol Tartrate Discontinued 25 MG PO TWICE A DAY 180 August 11, 2020 11:57am August 14, 2020 5:41pm Start: 06-23-2020 take 1 tablet by gautam th every twelve hours metoprolol tartrate, short acting, (LOPRESSOR) 25 mg tablet Take 1 tablet by mouth every 12 hours. 60 tablet 06/23/2020 Active Comment on above: Take 1 tablet by gautam th every 12 hours. mometasone furoate 0.05 mg/actuat metered dose nasal spray (9 sources) Corticosteroid Start: 12-27-2017 End: 01-31-2019 Mometasone (Nasonex) 50 mcg/actuation spray,non-aerosol Discontinued 2 SPRAY INTRANASAL daily December 27, 2017 12:00am January 31, 2019 1:48pm Start: 10-27-2011 NASONEX 50 MCG /ACT SUSP Take as directed MOMETASONE FUROATE [id number] Paula Layne RN Start: 10-27-2011 NASONEX 50 MCG /ACT SUSP Take as directed MOMETASONE FUROATE [id number] Paula Layne RN MULTIPLE VITAMIN (4 sources) Start: 10-27-2011 take 1 tablet by mouth once daily MULTIVITAMINS TABS One tablet by mouth daily MULTIPLE VITAMIN [id number] Paula Layne RN MULTIPLE VITAMIN (2 sources) Start: 10-27-2011 take 1 tablet by mouth once daily MULTIVITAMINS TABS One tablet by mouth daily MULTIPLE VITAMIN [id number] Paula Layne RN [place]-3 Fatty Acids (Fish Oil Concentrate) 1,000 mg capsule (3 sources) Start: 12-27-2017 End: 07-30-2020 take 1 capsule by mouth twice daily [place]-3 Fatty Acids (Fish Oil Concentrate) 1,000 mg capsule Discontinued 1000 MG PO TWICE A DAY December 27, 2017 8:39am July 30, 2020 4:30pm Start: 12-27-2017 End: 07-30-2020 take 1 capsule by mouth twice daily [place]-3 Fatty Acids (Fish Oil Concentrate) 1,000 mg capsule Discontinued 1000 MG PO TWICE A DAY December 27, 2017 12:00am July 30, 2020 4:30pm POLYETHYLENE GLYCOL 3350 (4 sources) Start: 10-27-2011 MIRALAX PACK T merced as directed POLYETHYLENE GLYCOL 3350 [id number] Paula Layne RN potassium chloride 20 meq extended release oral tablet (3 sources) Start: 06-30-2020 End: 07-30-2020 take 20 mEq by mouth once daily Potassium Chloride Discontinued 20 MEQ PO DAILY June 30, 2020 1:00am July 30, 2020 4:31pm PROBIOTIC PRODUCT (4 sources) Start: 11-17-2012 take 1 tablet by mouth once daily PROBIOTIC & ACIDOPHILUS EX ST CAPS One tablet by mouth daily PROBIOTIC PRODUCT [id number] Hal Barnett MD PROBIOTIC PRODUCT (2 sources) Start: 11-17-2012 take 1 tablet by mouth once daily PROBIOTIC & ACIDOPHILUS EX ST CAPS One tablet by mouth daily PROBIOTIC PRODUCT [id number] Hal Barnett MD quinapril 20 mg oral tablet (20 sources) Angiotensin Converting Enzyme Inhibitor Start: 12-27-2017 End: 06-30-2020 take 20 mg by mouth twice daily Quinapril Discontinued 20 MG PO TWICE A DAY 180 December 20, 2019 4:43pm June 30, 2020 8:50am Start: 10-27-2011 take 0.5 tablet by [facility] twice daily ACCUPRIL 40 MG TABS 1/2 tablet by mouth twice daily QUINAPRIL HCL [id number] Hal Barnett MD Start: 10-27-2011 take 1 tablet by gautam twice daily ACCUPRIL 40 MG TABS One tablet by mouth twice daily QUINAPRIL HCL [id number] Hal Barnett MD Start: 10-27-2011 take 1 tablet by gautam twice daily ACCUPRIL 20 MG TABS One tablet by mouth twice daily QUINAPRIL HCL [id number] Hal Barnett MD sennosides, fpc 8.6 mg oral tablet (12 sources) Start: 10-27-2011 End: 11-17-2012 take 1 tablet by mouth once daily SENOKOT 8.6 MG TABS One tablet by mouth daily [facility] [id number] Hal Barnett MD Start: 10-27-2011 End: 11-17-2012 take 1 tablet by mouth once daily SENOKOT 8.6 MG TABS One tablet by mouth daily [place] LICENSE OF [facility] [id number] Hal Barnett MD vitamin d 1000 unt oral tablet (15 sources) Start: 12-15-2015 End: 01-14-2017 take 1 tablet by mouth once daily VITAMIN D 1000 UNIT TABS One tablet by mouth daily CHOLECALCIFEROL [id number] Hal Barnett MD Start: 12-15-2015 take 1 tablet by gautam th once daily VITAMIN D 1000 UNIT TABS One tablet by mouth daily CHOLECALCIFEROL [id number] Hal Barnett MD Start: 11-17-2012 End: 01-14-2017 take 1 tablet by mouth once daily VITAMIN D 1000 UNIT TABS One tablet by mouth daily CHOLECALCIFEROL [id number] Hal Barnett MD Start: 11-17-2012 take 1 tablet by gautam th once daily VITAMIN D 1000 UNIT TABS One tablet by mouth daily CHOLECALCIFEROL [id number] Hal Barnett MD Ambien (9 sources) gamma-Aminobutyric Acid-ergic Agonist Start: 06-29-2021 Ambien Dose : 5 mg = , Oral, qHS, PRN as needed for sleep, 0 Refill(s), 60 Start Date: 06/29/21 Status: Ordered Repeat number: 1 Start: 06-29-2021 Ambien Dose : 5 mg =, Oral, qHS, PRN as needed for sleep, 0 Refill(s), 60 Start Date: 06/29/21 Status: Ordered Start: 01-28-2021 take 2.5 mg by mouth at bedtim e Zolpidem (Ambien) 5 mg tablet Active 2.5 MG PO AT BEDTIME January 28, 2021 12:00am Start: 01-31-2019 End: 06-30-2020 take 1 tablet by mouth at bedtime Zolpidem (Ambien) 5 mg tablet Discontinued 5 MG PO AT BEDTIME January 31, 2019 12:00am June 30, 2020 8:50am Problems Active Problems Problem Classification Problem Date Documented Date Episodic/Chronic Aortic; peripheral; and visceral artery aneurysms (12 sources) Thoracic aortic aneurysm, without rupture; Translations: [Thoracic aortic aneurysm without rupture] Onset: 2 Resolved: 0 10-27-2011 Chronic Cardiac and circulatory congenital anomalies (11 sources) Bicuspid aortic valve; Translations: [Congenital insufficiency of aortic valve] Onset: 2 10-27-2011 Chronic Coronary atherosclerosis and other heart disease (2 sources) Coronary atherosclerosis; Translations: [Atherosclerotic heart disease of [place] coronary artery without angina pectoris] Onset: 0 06-23-2020 Chronic Disorders of lipid metabolism (12 sources) Hyperlipidemia; Translations: [Hyperlipidemia, unspecified] Onset: 2 10-27-2011 Chronic E Codes: Fall (2 sources) Fall; Translations: [Unspecified fall, initial encounter] Episodic Esophageal disorders (2 sources) Gastroesophageal reflux disease; Translations: [Gastro-esophageal reflux disease without esophagitis] Onset: 6 04-06-2016 Chronic Essential hypertension (12 sources) Hypertensive disorder; Translations: [Essential hypertension] Onset: 2 10-27-2011 Chronic Heart valve disorders (20 sources) Nonrheumatic aortic (valve) insufficiency; Translations: [Mitral valve prolapse] Onset: 2 01-11-2017 Chronic Mood disorders (3 sources) Depressive disorder; Translations: [Depression] Onset: 6 04-06-2016 Chronic Osteoporosis (4 sources) Osteoporosis; Translations: [Age-related osteoporosis without current pathological fracture] Onset: 5 Chronic Other circulatory disease (3 sources) H/O: major vascular surgery; Translations: [Presence of other vascular implants and grafts] Onset: 0 Chronic Other circulatory disease (1 source) Presence of other vascular implants and grafts; Translations: [Blood vessel replaced by other means] Onset: 0 Chronic Other non-traumatic joint disorders (2 sources) Other specific arthropathies, not elsewhere classified, right shoulder; Translations: [Arthropathy, unspecified, shoulder region] Onset: 5 04-26-2025 Chronic Other non-traumatic joint disorders (2 sources) Pain of right wrist; Translations: [Pain in right wrist] Episodic Other screening for suspected conditions (not mental disorders or infectious disease) (2 sources) Prolonged QT interval; Translations: [Abnormal electrocardiogram [ECG] [EKG]] Onset: 0 Resolved: 0 06-18-2020 Episodic Thyroid disorders (3 sources) Thyroid nodule; Translations: [Nontoxic single thyroid nodule] Chronic Unclassified (4 sources) Long-term drug therapy; Translations: [Long-term (current) use of other medications] Onset: 3 05-17-2013 Past or Other Problems Problem Classification Problem Date Documented Date Episodic/Chronic Administrative/socia l admission (2 sources) Discharge status; Translations: [Encounter for administrative examinations, unspecified] Onset: 06-10-2020 06-21-2020 Episodic Cardiac dysrhythmias (6 sources) Palpitations; Translations: [Palpitations] Onset: 10-27-2011 10-27-2011 Episodic Coagulation and hemorrhagic disorders (1 source) Thrombocytopenic disorder; Translations: [Thrombocytopenia, unspecified] Onset: 06-18-2020 Resolved: 06-18-2020 06-18-2020 Chronic Diabetes mellitus without complication (1 source) Metabolic stress hyperglycemia; Translations: [Hyperglycemia, unspecified] Onset: 06-16-2020 Resolved: 06-18-2020 06-18-2020 Episodic Fluid and electrolyte disorders (1 source) Hypervolemia; Translations: [Fluid overload, unspecified] Onset: 06-17-2020 Resolved: 06-18-2020 06-18-2020 Episodic Fracture of upper limb (2 sources) Closed fracture of shaft of fifth metacarpal bone; Translations: [Displaced fracture of shaft of fifth metacarpal bone, right hand, initial encounter for closed fracture] Onset: 04-06-2016 04-06-2016 Episodic Malaise and fatigue (1 source) Other fatigue; Translations: [Other fatigue] Onset: 10-01-2024 Episodic Other aftercare (8 sources) Long-term (current) use of other medications; Translations: [Other continuous churn buttermaker (current) drug therapy] Onset: 05-17-2013 05-17-2013 Episodic Other connective tissue disease (2 sources) Fibromyalgia; Translations: [Fibromyalgia] Onset: 04-06-2016 04-06-2016 Episodic Other nervous system disorders (1 source) Postoperative pain ; Translations: [Other acute postprocedural pain] Onset: 06-17-2020 Resolved: 06-18-2020 06-18-2020 Episodic Other non-traumatic joint disorders (1 source) Shoulder joint pain; Translations: [Pain in unspecified shoulder] Onset: 06-11-2008 Resolved: 04-06-2016 04-06-2016 Episodic [place]-; endo-; and myocarditis; cardiomyopathy (except that caused by tuberculosis or sexually transmitted disease) (2 sources) Pericarditis; Translations: [Disease of pericardium, unspecified] Onset: 06-17-2020 06-23-2020 Episodic Residual codes; unclassified (2 sources) FH: Hypertension; Translations: [Family history of ischemic heart disease and other diseases of the circulatory system] 12-02-2014 Episodic Residual codes; unclassified (2 sources) Finding related to care delivery; Translations: [Other specified personal risk factors, not elsewhere classified] Onset: 06-18-2020 06-23-2021 Episodic Respiratory failure; insufficiency; arrest (adult) (1 source) Ventilator finding; Translations: [Dependence on respirator [ventilator] status] Onset: 06-16-2020 Resolved: 06-17-2020 06-17-2020 Chronic Syncope (1 source) Syncope and collapse; Translations: [Syncope and collapse] Onset: 07-21-2024 Episodic Unclassified (10 sources) FH: Raised blood lipids; Translations: [FH: Hypertension] 12-02-2014 Episodic Results Test Name Value Interpretation Reference Range Facility Ribs Uni Min 3V w/PA Cheston 04-30-2025 Ribs Uni Min 3V w/PA Chest [facility] [address] [place] [address] [id number] Ribs Uni Min 3V w/PA Chest MR#: [id number] Acct: [id number] Name: BHAVIN HERNANDEZ Rep #: [id number] : 1955 F 70 From: Jordi Ash MD PCP: Dr. Roderick Lewis MD Status: REG CLI Study: Ribs Uni Min 3V w/PA Chest Date of Exam: 04/30 Exam# [id number] Ordering Dr: Travis Kelly NP [employer]OBJ DEVELOPER -C EXAM: XR Right Ribs and AP Chest, 3 or More Views CLINICAL INDICATION: FELL TECHNIQUE: Frontal and oblique views of the right ribs and frontal view of the chest. COMPARISON: No relevant prior studies available. FINDINGS: LUNGS AND PLEURAL SPACES: Unremarkable. No consolidation. No pneumothorax. HEART: Unremarkable. No cardiomegaly. MEDIASTINUM: Unremarkable. Normal mediastinal contour. BONES/JOINTS: Unremarkable. No acute displaced fracture. RAD/Ribs Uni Min 3V w/PA Chest IMPRESSION: No acute displaced fracture. Reading [facility] CC: Travis BARAKAT NP-Johnathan Kelly; Dr. Roderick Lewis MD Coordinate Measuring Machine Programmer: Signed [facility] Relevant diagnostic tests/la boratory data Narrativeon 04-26-2025 Fall risk assessment no TOMAS [employer] Work Phone: MEDS REVIEW Done [employer] Work Phone: MEDS REVIEWD Medications reviewed with [employer] Work Phone: MRI HX of the right shoulder on 01/10/2025 at [facility] [employer]. Work Phone: XRAY HX of the right shoulder on 09/18/2024 at [facility] [employer]. Work Phone: MR/BMS.BPon 03-21-2025 MR/BMS.BP [address], [address] [place] [id number] OFFICE VISIT Date of Service: 03/21/25 MR#: [id number] Acct: [id number] Name: BHAVIN HERNANDEZ Rep #: [id number] : 1955 Provider: Dr. Boogie March se DO Age/Sex: 69/F Location[place] [facility] Status: Signed Intake Vital Signs 09/13/24 10:01 02/06/25 13:27 03/21/25 10:11 Height 5 ft 5 in 5 ft 5 in 5 ft 5 in BP Intake Visit Reasons: 6 M FU Allergies Cephalosporins Allergy (Severe, Verified 01/17/25 13:35) Rash amoxicillin Adverse Reaction (Severe, Verified 01/17/25 13:35) Rash clindamycin Adverse Reaction (Severe, Verified 01/17/25 13:35) Unknown nifedipine (From Adalat) Adverse Reaction (Severe, Verified 01/17/25 13:35) Vomiting, Hypotension nitrofurantoin (From Macrobid) Adverse Reaction (Severe, Verified 01/17/25 13:35) N/V Sulfa (Sulfonamide Antibiotics) Adverse Reaction (Severe, Verified 01/17/25 13:35) Rash montelukast (From Singulair) Adverse Reaction (Unknown, Verified 01/17/25 13:35) Unknown naproxen (From Aleve) Adverse Reaction (Unknown, Verified 01/17/25 13:35) Unknown Have you fallen in the past year?: No PFSH Medical History (Updated 01/17/25 @ 13:[address] Boogie Saucedo, DO) PTSD (post-traumatic stress disorder) Right knee meniscal tear Dysthymia Thyroid nodule Osteoporosis Thoracic aortic aneurysm without rupture Essential hypertension Fibromyalgia Depression Hyperlipidemia Nonrheumatic mitral (valve) prolapse Nonrheumatic aortic (valve) insufficiency Bicuspid aortic valve Surgical History History of ascending aortic replacement ( 06/16/20) History of aortic valve replacement with bioprosthetic valve ( 06/16/20) History of total hysterectomy History of laparoscopic cholecystectomy Family History Father Heart disease Mother Hypertension Social History Smoking Status: Never smoker alcohol intake: never HPI History of Present Illness History provided by: patient HPI: Bhavin Hernandez is a 69 year old female who presents today for follow up evaluation. Patient reports that she just recently got back from a trip with a friend for [employer] in [place]. Is doing very well in regards to mood and reports to being much brighter. Found that planning for trip was a good distraction. Feels like PTSD symptoms have been significantly improved. Has been following with Radha at [facility] [employer]. Describes relationship as being positive to this point. Denies SI/HI or AVH at this time. Review of Systems Constitutional Denies: fever(s), chills, change in weight or fatigue Eyes Denies: change in vision or blurry vision Ears, Nose, Mouth, Throat Denies: throat pain, neck pain or change in hearing Cardiovascular Denies: chest pain, palpitations or dyspnea Respiratory Denies: dyspnea, cough or wheezing Gastrointestinal Denies: abdominal pain, nausea, vomiting, diarrhea or constipation Genitourinary Denies: dysuria or urinary frequency Musculoskeletal Reports: joint pain; Denies: back pain, neck pain or muscle weakness Integumentary/Breas t Denies: rash or new lesions Neurological Reports: headache(s) (intermittent); Denies: dizziness or confusion Endocrine Denies: fatigue or excessive sweating Hematologic/Lymphat ic Denies: easy bruising or easy bleeding Allergic/Immunologi c Denies: wheezing Exam Mental Status Exam - Psych Appearance casually dressed and no apparent distress Attitude cooperative and pleasant Activity/Motor Behavior restless Speech regular rate, regular volume and regular prosody Mood euythmic Affect full range and other (Bright) Thought Process linear, logical and coherent Thought Content no delusions and no hallucinations Suicidal Ideation none Homicidal Ideation none Attention intact Concentration intact Sensorium/Orientati on awake, alert and oriented x3 Memory/Cognition other (appropriate for stated age) Insight fair Judgement good Assessment Plan Assessment Plan (1) PTSD (post-traumatic stress disorder): Plan: - Significantly improved in recent past given recent vacation with friend (2) Dysthymia: Plan: - Continue wellbutrin and zoloft as before Longitudinal care of this patient requires consistent and continuous treatment over an extended period of time. Medications: Refilled bupropion HCl XL TAKE 1 TABLET EVERY MORNING 90 tabs 1RF F34.1 - Dysthymic disorder sertraline 150 mg (1.5 x 100 mg) PO QHS 135 tabs 1RF 90 days F34.1 - Dysthymic disorder zolpidem (Ambien) 2.5 mg (1/2 x 5 mg) PO QHS PRN 30 tabs 2RF sleep Clinical Quality Measures F (more content not included)... [facility] Dexa Bone Density Studyon Dexa Bone Density Study [facility] [address] [place] [address] Dexa Bone Density Study MR#: [id number] Acct: [id number] Name: BHAVIN HERNANDEZ Rep #: [id number] : 1955 F 69 From: Krishna flores MD PCP: Dr. Roderick Lewis MD Status: REG CLI Study: Dexa Bone Density Study Date of Exam: 02/14/25 Exam# [id number] Ordering Dr: Roderick Lewis MD PROCEDURE: DEXA BONE DENSITY STUDY 02/14/2025 REASON FOR EXAM: F, age 69 y/o . Postmenopausal. TECHNIQUE: DEXA BONE DENSITY STUDY COMPARISON: Prior study dated January 20, 2002 3. FINDINGS: BMD and T-SCORES Lumbar spine: 0.888 g/cm2, T-score -1.4 Levels: L1 through L4 Change from prior: Improvement of 8.4%. Left femoral neck: 0.613 g/cm2, T-score -2.1 Femoral neck comparison data not recommended for monitoring change. Left total hip: 0.746 g/cm2, T-score -1.6 Change from prior: Loss of 3.4%. Right femoral neck: 0.601 g/cm2, T-score -2.2 Femoral neck comparison data not recommended for monitoring change. Right total hip: 0.714 g/cm2, T-score -1.9 Change from prior: Improvement of 0.6%. The World Health Organization has defined the following categories based on bone density: Normal bone density: T-score equal to or greater than -1.0 Osteopenia: T-score between -1.0 and -2.5 Osteoporosis: T-score equal to or less than -2.5 FRAX (or Comparable) Fracture Risk Assessment: 10 Year Probability of Fracture: Major Osteoporotic Fracture: 18%% Hip Fracture: 3 1% (Note: FRAX is not to be reported in setting of normal range bone density, osteoporosis on DEXA, known history of osteoporosis, prior osteoporotic hip or vertebral fracture, or for any patient undergoing pharmacological treatment for bone loss.) The National Osteoporosis Foundation (NOF) recommends pharmacological treatment for patients with a FRAX 10-year risk of 3% or higher for a hip fracture, or 20% or higher for a major osteoporotic fracture, to prevent osteoporosis and reduce fracture risk. The patient does meet the pharmacological treatment recommendations for prevention of osteoporosis. BD/Dexa Bone Density Study IMPRESSION: OSTEOPENIA. Recommend follow-up as clinically warranted. Reading Location: [facility] CC: Dr. Roderick Lewis MD Coordinate Measuring Machine Programmer: Signed [facility] SCRN MAMM (CAD)W/SAL BILATo n 02-14-2025 SCRN MAMM (CAD)W/SAL BILAT [facility] [address] [place] [id number] SCRN MAMM (CAD)W/SAL BILAT MR#: [id number] Acct: [id number] Name: BHAVIN HERNANDEZ Rep #: [id number] : 1955 F 69 From: Krishna flores MD PCP: Dr. Roderick Lewis MD [facility]: SCRN MAMM (CAD)W/SAL BILAT Date of Exam: 01/26 07/21 Exam# [id number] Ordering Dr: Roderick Lewis MD EXAM: SCRN MAMM (CAD)W/SAL BILAT DATE: 02/14/2025 CLINICAL HISTORY: F, Age 69 y/o , SCREENING No family history. TECHNIQUE: SCRN MAMM (CAD)W/SAL BILAT COMPARISON: Prior exam(s) dated February 03, 2024.. FINDINGS: TISSUE DENSITY: The breasts are heterogeneously dense, which may obscure small masses. Bilateral Breast Mammographic Findings: No significant masses, calcifications or other abnormalities are identified. No suspicious masses, areas of developing architectural distortion, or suspicious calcifications. There has been no significant interval change. BI/SCRN MAMM (CAD)W/SAL BILAT IMPRESSION: Stable examination. OVERALL FINAL ASSESSMENT BI-RADS 1: NEGATIVE. RECOMMENDATION: Routine annual follow-up in 1 Year A letter with findings and recommendations will be mailed to the patient. Reading Location: [facility] CC: Dr. Roderick Lewis MD Coordinate Measuring Machine Programmer: Signed [facility] MR/BMS.BPon 02-06-2025 MR/BMS.BP [place] [address] [facility], [address] [place] [id number] OFFICE VISIT Date of Service: 02/06/25 MR#: [id number] Acct: [id number] Name: BHAVIN HERNANDEZ Rep #: [id number] : 1955 Provider: Dr. Boogie March se, DO Age/Sex: 69/F Location[place] [facility] Status: Signed Intake Vital Signs 01/17/25 13:26 02/06/25 13:27 Height 5 ft 5 in 5 ft 5 in Weight: 130 lb BMI 21.6 BP 144/84 H Blood Pressure Location Lt brachial Position Sitting Respiration 16 Pulse 87 Pulse Source Monitor BP Intake Visit Reasons: 1 M FU Allergies Cephalosporins Allergy (Severe, Verified 01/17/25 13:35) Rash amoxicillin Adverse Reaction (Severe, Verified 01/17/25 13:35) Rash clindamycin Adverse Reaction (Severe, Verified 01/17/25 13:35) Unknown nifedipine (From Adalat) Adverse Reaction (Severe, Verified 01/17/25 13:35) Vomiting, Hypotension nitrofurantoin (From Macrobid) Adverse Reaction (Severe, Verified 01/17/25 13:35) N/V Sulfa (Sulfonamide Antibiotics) Adverse Reaction (Severe, Verified 01/17/25 13:35) Rash montelukast (From Singulair) Adverse Reaction (Unknown, Verified 01/17/25 13:35) Unknown naproxen (From Aleve) Adverse Reaction (Unknown, Verified 01/17/25 13:35) Unknown Have you fallen in the past year?: No [facility] Medical History (Updated 01/17/25 @ 13:[address] Boogie Saucedo DO) PTSD (post-traumatic stress disorder) Right knee meniscal tear Dysthymia Thyroid nodule Osteoporosis Thoracic aortic aneurysm without rupture Essential hypertension Fibromyalgia Depression Hyperlipidemia Nonrheumatic mitral (valve) prolapse Nonrheumatic aortic (valve) insufficiency Bicuspid aortic valve Surgical History History of ascending aortic replacement ( 06/16/20) History of aortic valve replacement with bioprosthetic valve ( 06/16/20) History of total hysterectomy History of laparoscopic cholecystectomy Family History Father Heart disease Mother Hypertension Social History Smoking Status: Never smoker alcohol intake: never HPI History of Present Illness History provided by: patient HPI: Bhavin Hernandez is a 69 year old female who presents today for follow up evaluation. Patient reports that she has been doing better. Has been using ambien with good efficacy getting about 8 hours at night. Denies any flashbacks, but does have some rumination in the morning. Did drive by the [employer] recently and it led to near panic attack type symptoms. Has been doing a lot of deep breathing exercises to help calm anxiety down. Has been hyperfocusing on gardening to distract self. Plans to see Radha Reyes in a week at [facility]. She did call her previous therapist who gave referral for Radha. Denies any SI HI or AVH. Review of Systems Constitutional Denies: fever(s), chills, change in weight or fatigue Eyes Denies: change in vision or blurry vision Ears, Nose, Mouth, Throat Denies: throat pain, neck pain or change in hearing Cardiovascular Denies: chest pain, palpitations or dyspnea Respiratory Denies: dyspnea, cough or wheezing Gastrointestinal Denies: abdominal pain, nausea, vomiting, diarrhea or constipation Genitourinary Denies: dysuria or urinary frequency Musculoskeletal Reports: joint pain; Denies: back pain, neck pain or muscle weakness Integumentary/Breas t Denies: rash or new lesions Neurological Reports: headache(s) (intermittent); Denies: dizziness or confusion Endocrine Denies: fatigue or excessive sweating Hematologic/Lymphat ic Denies: easy bruising or easy bleeding Allergic/Immunologi c Denies: wheezing Exam Mental Status Exam - Psych Appearance casually dressed and no apparent distress Attitude cooperative and pleasant Activity/Motor Behavior restless Speech regular rate, regular volume and regular prosody Mood anxious (Better than previous) Affect restricted Thought Process linear, logical and coherent Thought Content no delusions and no hallucinations Suicidal Ideation none Homicidal Ideation none Attention intact Concentration intact Sensorium/Orientati on awake, alert and oriented x3 Memory/Cognition other (appropriate for stated age) Insight fair Judgement good Assessment Plan Assessment Plan (1) PTSD (post-traumatic stress disorder): Plan: - improving in recent past - Encouraged to take zolpidem with some increased frequency to at least get sleep cycle corrected and then could consider discontinuation ???Still can consider prazosin long-term if nightmares are not improving (2) Dysthymia: Plan: - Continue wellbutrin and zoloft as before Longitudinal care of this patient re (more content not included)... [facility] MR/BMS.BPon 01-17-2025 MR/BMS.BP [facility] [address] [facility] [facility], [address] [place] [address] OFFICE VISIT Date of Service: 01/17/25 MR#: [id number] Acct: [id number] Name: BHAVIN HERNANDEZ Rep #: [id number] : 1955 Provider: Dr. Boogie March se, Age/Sex: 69/F [place] [facility] [place]: Signed Intake Vital Signs 09/28/24 08:27 01/17/25 13:26 Height 5 ft 5 in 5 ft 5 in Weight: 136 lb 130 lb BMI 22.6 21.6 BP 149/93 H 144/84 H Blood Pressure Location Lt brachial Lt brachial Position Sitting Sitting Respiration 18 16 Pulse 73 87 Pulse Source NIBP Monitor Comment Took medications shortly before OV BP Intake Visit Reasons: Follow up Accompanied by: Self Allergies Cephalosporins Allergy (Severe, Verified 01/17/25 13:35) Rash amoxicillin Adverse Reaction (Severe, Verified 01/17/25 13:35) Rash clindamycin Adverse Reaction (Severe, Verified 01/17/25 13:35) Unknown nifedipine (From Adalat) Adverse Reaction (Severe, Verified 01/17/25 13:35) Vomiting, Hypotension nitrofurantoin (From Macrobid) Adverse Reaction (Severe, Verified 01/17/25 13:35) N/V Sulfa (Sulfonamide Antibiotics) Adverse Reaction (Severe, Verified 01/17/25 13:35) Rash montelukast (From Singulair) Adverse Reaction (Unknown, Verified 01/17/25 13:35) Unknown naproxen (From Aleve) Adverse Reaction (Unknown, Verified 01/17/25 13:35) Unknown Medications ???Medication ???Instructions ???Recorded ???Confirmed ???Type aspirin 81 mg tablet,delayed 81 mg PO QDAY 12/27/17 01/17/25 Hi story release lactobacillus combination no.8 3 3,000 mmu cells PO QDAY 12/27/17 0 01/17/25 History billion cell capsule (Adult Probiotic) multivitamin 1 tab PO QDAY 12/27/17 01/17/25 Hi story polyethylene glycol 3350 17 17 g PO QDAY PRN 12/27/17 01/17/25 History gram/dose oral powder (Miralax) fluticasone propionate 50 2 spray intranasal QDAY 01/31/19 0 01/17/25 History mcg/actuation nasal spray,suspension (Flonase Allergy Relief) estradiol 0.01% (0.1 mg/gram) 1 g vaginal 2XW 02/01/22 01/17/25 History vaginal cream olopatadine 0.6 % nasal spray 2 spray intranasal BID 02/01/22 History omeprazole 40 mg capsule,delayed 40 mg PO DAILY 02/01/22 01/17/25 H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 .COMPLEX #90 caps bupropion HCl 300 mg 24 hr tablet, See Rx Instructions .Route 09/1309/28/24 Rx extended release .COMPLEX #90 tabs sertraline 100 mg tablet 150 mg (1.5 x 100 mg) PO QHS 90 09/28/24 Rx days #135 tabs Ejection fraction %: 65 Have you fallen in the past year?: No [facility] Medical History (Updated 09/28/24 @ 15:02 by NEELAM Triana) Right knee meniscal tear Dysthymia Thyroid nodule Osteoporosis Thoracic aortic aneurysm without rupture Esse (more content not included)... Normal [facility] Thyroid Stim Hormone (TSH)on 09-28-2024 TSH 0.885 uIU/mL Normal 0.300-4.200 [facility] Comment on above: Performed By: #### L 501.9520, L100.0100 #### [facility] [address] [place], [place], [id number] MR/BMS.BPon 09-13-2024 MR/BMS.BP [address], [address] [place] [id number] OFFICE VISIT Date of Service: 09/13/24 MR#: [id number] Acct: [id number] Name: BHAVIN HERNANDEZ Rep #: [id number] : 1955 Provider: Dr. Boogie March se, DO Age/Sex: 69/F [place] [facility] [place] Status: Signed Intake Vital Signs 03/26/24 10:27 09/13/24 10:01 Height 5 ft 5 in 5 ft 5 in Weight: 134 lb BMI 22.3 BP 119/79 Blood Pressure Location Lt brachial Position Sitting Respiration 16 Pulse 80 Pulse Source Monitor BP Intake Visit Reasons: 6 M FU Accompanied by: Self Allergies Cephalosporins Allergy (Severe, Verified 09/13/24 10:03) Rash amoxicillin Adverse Reaction (Severe, Verified 09/13/24 10:03) Rash clindamycin Adverse Reaction (Severe, Verified 09/13/24 10:03) Unknown nifedipine (From Adalat) Adverse Reaction (Severe, Verified 09/13/24 10:03) Vomiting, Hypotension nitrofurantoin (From Macrobid) Adverse Reaction (Severe, Verified 09/13/24 10:03) N/V Sulfa (Sulfonamide Antibiotics) Adverse Reaction (Severe, Verified 09/13/24 10:03) Rash montelukast (From Singulair) Adverse Reaction (Unknown, Verified 09/13/24 10:03) Unknown naproxen (From Aleve) Adverse Reaction (Unknown, Verified 09/13/24 10:03) Unknown Medications ???Medication ???Instructions ???Recorded ???Confirmed ???Type aspirin 81 mg tablet,delayed 81 mg PO QDAY 12/27/17 09/13/24 Hi story release lactobacillus combination no.8 3 3,000 mmu cells PO QDAY 12/27/17 0 09/13/24 History billion cell capsule (Adult Probiotic) multivitamin 1 tab PO QDAY 12/27/17 09/13/24 Hi story polyethylene glycol 3350 17 17 g PO QDAY PRN 12/27/17 09/13/24 History gram/dose oral powder (Miralax) fluticasone propionate 50 2 spray intranasal QDAY 01/31/19 0 09/13/24 History mcg/actuation nasal spray,suspension (Flonase Allergy Relief) zolpidem 5 mg tablet (Ambien) 2.5 mg PO QHS PRN 01/28/21 5 History estradiol 0.01% (0.1 mg/gram) 1 g vaginal 2XW 02/01/22 09/13/24 History vaginal cream olopatadine 0.6 % nasal spray 2 spray intranasal BID 02/01/22 History omeprazole 40 mg capsule,delayed 40 mg PO DAILY 02/01/22 09/13/24 H istory release alendronate 70 mg tablet (Fosamax) 70 mg PO QWEEK 07/01/23 09/13/24 History cholecalciferol (vitamin D3) 25 2,000 unit PO QDAY 07/01/23 History mcg (1,000 unit) tablet hydrocortisone 2.5 % topical cream 1 applic topical BID PRN 4 09/13/24 History diltiazem HCl 120 mg See Rx Instructions .Route 5 09/13/24 Rx capsule,extended release 24 hr .COMPLEX #90 caps bupropion HCl 300 mg 24 hr tablet, See Rx Instructions .Route 09/1309/13/24 Rx extended release .COMPLEX #90 tabs sertraline 100 mg tablet 150 mg (1.5 x 100 mg) PO QHS 90 09/13/24 Rx days #135 tabs Have you fallen in the past year?: No PFSH Medical History Bicuspid aortic valve Depression Dysthymia Essential hypertension Fibromyalgia Hyperlipidemia Nonrheumatic aortic (valve) insufficiency Nonrheumatic mitral (valve) prolapse Osteoporosis Thoracic aortic aneurysm without rupture Thyroid nodule Surgical History History of aortic valve replacement with bioprosthetic valve ( 06/16/20) History of ascending aortic replacement ( 06/16/20) History of laparoscopic cholecystectomy History of total hysterectomy Family History Father Heart disease Mother Hypertension Social History Smoking Status: Never smoker alcohol intake: never HPI History of Present Illness History provided by: patient HPI: Bhavin Hernandez is a 69 year old female who presents today for follow up evaluation. Patient reports that mood has been good. Did have a stretch where things were rough at the end of June and beginning of July. Did give a big speech in the middle of June and felt like she had a let down afterwards. Blanco significantly better around her trip to the [place] recently. Sleep has been doing largely well. Has taken maybe 1/2 ambien since last appointment. Will be going back to [place] come October. Denies SI/HI or AVH. Review of Systems Constitutional Denies: fever(s), chills, change in weight or fatigue Eyes Denies: change in vision or blurry vision Ears, Nose, Mouth, Throat Denies: throat pain, neck pain or change in hearing Cardiovascular Denies: chest pain, palpitations or dyspnea Respiratory Denies: dyspnea, cough or wheezing Gastrointestinal Denies: abdominal pain, nausea, vomiting, diarrhea or constipation Genitourinary Denies: dysuria or urinary frequency Musculosk (more content not included)... Normal [facility] Carotid Duplex Ultrasoundon 06-28-2024 Carotid Duplex Ultrasound [facility] [address] [place] [address] Carotid Duplex Ultrasound 06/28/24 1332 MR#: [id number] Acct: [id number] Name: BHAVIN HERNANDEZ Rep #: [id number] : 1955 69 From: Aric Romero MD Attending Dr: Dr. Roderick Lewis MD Status: REG C LI Ordering Dr: Roderick Lewis MD Date: 06/28/24 Location: [facility] Sex: F C Admitted: Reason For Study: Syncope Rt. Velocities/BP Lt. Velocities/BP Prox CCA 49.4/9.7 cm/sec. Prox CCA 72.9/16.8 cm/sec. Mid CCA 54.1/12.6 cm/sec. Mid CCA 65.2/15.7 cm/sec. Dist CCA 50.4/14.5 cm/sec. Dist CCA 61.9/16.8 cm/sec. Prox ICA 61.7/19.2 cm/sec. Prox ICA 45.4/15.7 cm/sec. Mid ICA 41.9/12.6 cm/sec. Mid ICA 81.7/22.3 cm/sec. Dist ICA 93.8/23.4 cm/sec. Dist ICA 71.8/23.4 cm/sec. Rt. ICA/CCA = 1.73. Lt. ICA/CCA = 1.25. Prox ECA 62.6/7.8 cm/sec. Prox ECA 59.7/10.2 cm/sec. Rt. Vert. 54.2/13.5 cm/sec. Lt. Vert. 50.9/10.2 cm/sec. Right Extracranial There is intimal thickening but no significant atherosclerotic plaque noted in the right common carotid artery. There is intimal thickening but no significant atherosclerotic plaque noted in the right internal carotid artery. There is intimal thickening but no significant atherosclerotic plaque noted in the right external carotid artery. Antegrade flow is noted in the right vertebral artery. Left Extracranial There is intimal thickening but no significant atherosclerotic plaque noted in the left common carotid artery. There is homogeneous, smooth atherosclerotic plaque noted in the left internal carotid artery. There is intimal thickening but no significant atherosclerotic plaque noted in the left external carotid artery. Antegrade flow is noted in the left vertebral artery. Procedure Carotid Duplex 36244. This is a Carotid Duplex examination using B-mode, color flow and specral Doppler. Exam performed in department. VL/Carotid Duplex Ultrasound Interpretation Summary Normal right extracranial internal carotid. Mild (<50%) stenosis left extracranial internal carotid. Patent and antegrade vertebrals bilaterally. __ Ordering Physician: Roderick Lewis Referring Physician: Roderick Lewis Performed By: Olivia Lo, [facility] 06/28/248 Date Aric Romero MD CC: Dr. Roderick Lewis MD Date Dictated: 06/28/24 1332 Date Transcribed: 06/28/241847 Coordinate Measuring Machine Programmer: Signed Normal [facility] Echo Completeon 06-28-2024 Echo Complete [facility] [address] [place] [address]. [place] [address] Echo Complete 06/28/24 1259 MR#: [id number] Acct: [id number] Name: BHAVIN HERNANDEZ Rep #: [id number] : 1955 69 From: Piter Castillo MD Attending Dr: Dr. Roderick Lewis MD Status: [facility] Ordering Dr: Roderick Lewis MD Date: 06/28/24 Location: [facility] Sex: F C Admitted: Reason For Study : SYNCOPE Procedure This was a 2D Doppler, Color Flow transthoracic echocardiogram. Exam performed in department. Left Ventricle Normal LV size. Left ventricular systolic function is normal. The left ventricular ejection fraction is 60 %. No regional wall motion abnormalities noted. Right Ventricle Normal RV size. Normal systolic function. Atria Normal left atrium. Normal right atrium. Mitral Valve Mild diffuse mitral valve thickening. Mild (1+) eccentric mitral valve insufficiency. Aortic Valve Peak aortic valve gradient 26 mmHg. Mean aortic valve gradient 15 mmHg. Bioprosthetic aortic valve. Pulmonic Valve Normal pulmonic valve. Great Vessels Mildly dilated aortic root. The pulmonary artery is normal size. Normal inferior vena cava. Pericardium/Pleural No pericardial effusion. MMode/2D Measurements Calculations LVIDd: 4.7 cm IVSd: 0.80 cm LVOT diam: 2.0 cm LVIDs: 2.7 cm LVPWd: 0.72 cm LVOT area: 3.1 cm2 RVDd: 2.8 cm FS: 42.2 % __ asc Aorta Diam: 3.0 cm LAV(MOD-bp): 43.0 ml LVAd ap4: 20.0 cm2 LAV(MOD-bp) Indexed: 25.7 ml/m2 LVLd ap4: 6.6 cm LAV(MOD-sp2): 50.6 ml EDV(MOD-sp4): 49.3 ml LAV(MOD-sp4): 33.5 ml EDV(sp4-el): 51.6 ml LVAs ap4: 10.5 cm2 LVLs ap4: 5.3 cm ESV(MOD-sp4): 17.0 ml ESV(sp4-el): 17.5 ml EF(MOD-sp4): 65.6 % EF(sp4-el): 66.0 % __ SV(MOD-sp4): 32.3 ml SV(MOD-sp2): 24.3 ml LVAd ap2: 17.9 cm2 LVLd ap2: 6.7 cm SI(MOD-sp4): 19.3 ml/m2 SI(MOD-sp2): 14.5 ml/m2 EDV(MOD-sp2): 38.9 ml EDV(sp2-el): 40.3 ml LVAs ap2: 9.7 cm2 LVLs ap2: 5.5 cm ESV(MOD-sp2): 14.5 ml ESV(sp2-el): 14.5 ml EF(MOD-sp2): 62.6 % __ SV(sp4-el): 34.0 ml Ao sinus diam: 4.[address] Junction: 3.1 cm __ LA A4 area: 13.4 cm2 LA dimension(2D): 3.6 cm RA A4 area: 11.0 cm2 __ TAPSE: 1.7 cm Time Measurements MV dec time: 0.21 sec Doppler Measurements Calculations MV E max jeanine: 67.8 cm/sec Lat Peak E' Jeanine: 9.8 cm/sec Med Peak E' Jeanine: 7.1 cm/sec MV A max jeanine: 77.8 cm/sec E/E' lat: 6.9 E/E' med: 9.6 MV E/A: 0.87 __ Ao V2 max: 257.5 cm/sec LV V1 max: 161.5 cm/sec MV dec slope: 326.8 cm/sec2 Ao max P.6 mmHg LV V1 max P.4 mmHg Ao V2 mean: 186.0 cm/sec LV V1 mean P.8 mmHg Ao mean P.3 mmHg LV V1 mean: 124.6 cm/sec Ao V2 VTI: 53.5 cm LV V1 VTI: 32.7 cm AV (velocity ratio): 0.61 PRAFUL(I,D): 1.9 cm2 PRAFUL(V,D): 2.0 cm2 __ SV(LVOT): 102.2 ml PA V2 max: 53.4 cm/sec TR max jeanine: 203.5 cm/sec TR max P.6 mmHg ECHO/Echo Complete Interpretation Summary Normal LV size. Left ventricular systolic function is normal. The left ventricular ejection fraction is 60 %. Mildly dilated aortic root. Bioprosthetic aortic valve. Mean aortic valve gradient 15 mmHg. Mild (1+) eccentric mitral valve insufficiency. __ Ordering Physician: Roderick Lewis Referring Physician: Roderick Lewis Performed By: Irais Red, [facility] 09/28/24 1500 Date Piter Castillo MD CC: Dr. Roderick Lewis MD Date Dictated: 06/28/24 1259 Date Transcribed: 06/28/24 1457 Coordinate Measuring Machine Programmer: Signed [facility] 03-12-2022 [facility] Office Visit (UCTR) ---- BHAVIN HERNANDEZ ([id number]) 1955 [facility] Date Time Provider Department 03/12/22 11:30 AM NORMA MORAES [facility] During your visit today, we recorded the following information about you: Temperature Pulse Respiration Blood pressure 98 degrees 80/minute 18/minute 128/78 Weight 58.2 kg Norma Moraes APRN.LINEN AIDE 03/12/2022 1:00 PM Signed This note was created using NoteWriter. Subjective Bhavin Hernandez is a 66 year old female. [...] history is provided by the patient. No bilingual interpreter was used. Wrist/forearm Injury The incident occurred [...] Packet by mouth once daily. Lactobac comb [id number] (PROBIOTIC AND ACIDOPHILUS) 300-250 million cell-mg cap [...] for color change, pallor, rash and wound. Allergic/Immunologi c: Negative for environmental allergies, food allergies and immunocompromised state. Neurological: Negative for dizziness, tingling, facial asymmetry and numbness. (more content not included)... Normal [facility] XR WRIST 3V PA/LAT/OBL RTon 03-12-2022 XR WRIST 3V PA/LAT/OBL RT * * *Final Report* * * DATE OF EXAM: Mar 12 2022 11:46AM WOX [id number] - XR WRIST 3V PA/LAT/OBL RT / PROCEDURE REASON: multiple diagnoses * * * * Physician Interpretation * * * * EXAM:XR WRIST 3V PA/LAT/OBL RT HISTORY: Fall, initial encounter Right wrist pain COMPARISON:None. IMPRESSION:There is dorsal plate and multiple screws in the fifth metacarpal. There is no evidence of hardware loosening. Small cortical lucency just lateral to the ulnar styloid without soft tissue swelling is probably related to remote injury. There are degenerative changes in the first carpometacarpal, triscaphe and first CMC joints. There is no acute fracture, dislocation or focal soft tissue swelling. Coordinate Measuring Machine Programmer: [facility] Transcribe Date/Time: Mar 12 2022 12:19P Dictated by : STELLA DE LOS SANTOS MD This examination was interpreted and the report reviewed and electronically signed by: STELLA DE LOS SANTOS MD on Mar 12 2022 12:21PM EST [id number] Normal [facility] XR WRIST GENERAL 3V PA/LAT/O BL RIGHTon 03-12-[address] [facility] XR Wrist - right PA and Late ral and Obliqueon 03-12-2022 IMPRESSION:There is dorsal plate and multiple screws in the fifth metacarpal. There is no evidence of hardware loosening. Small cortical lucency just lateral to the ulnar styloid without soft tissue swelling is probably related to remote injury. There are degenerative changes in the first carpometacarpal, triscaphe and first CMC joints. There is no acute fracture, dislocation or focal soft tissue swelling. Coordinate Measuring Machine Programmer: [facility] Transcribe Date/Time: Mar 12 2022 12:19P Dictated by : STELLA DE LOS SANTOS MD This examination was interpreted and the report reviewed and electronically signed by: STELLA DE LOS SANTOS MD on Mar 12 2022 12:21PM EST DIVISION OF RADIOLOGY * * *Final Report* * * DATE OF EXAM: Mar 12 2022 11:46AM WOX [id number] - XR WRIST 3V PA/LAT/OBL RT / PROCEDURE REASON: multiple diagnoses * * * * Physician Interpretation * * * * EXAM:XR WRIST 3V PA/LAT/OBL RT HISTORY: Fall, initial encounter Right wrist pain COMPARISON:None. DIVISION OF RADIOLOGY Provider, [facility] - 03/12/2022 * * *Final Report* * * DATE OF EXAM: Mar 12 2022 11:46AM WOX [id number] - XR WRIST 3V PA/LAT/OBL RT / PROCEDURE REASON: multiple diagnoses * * * * Physician Interpretation * * * * EXAM:XR WRIST 3V PA/LAT/OBL RT HISTORY: Fall, initial encounter Right wrist pain COMPARISON:None. IMPRESSION IMPRESSION:There is dorsal plate and multiple screws in the fifth metacarpal. There is no evidence of hardware loosening. Small cortical lucency just lateral to the ulnar styloid without soft tissue swelling is probably related to remote injury. There are degenerative changes in the first carpometacarpal, triscaphe and first CMC joints. There is no acute fracture, dislocation or focal soft tissue swelling. Coordinate Measuring Machine Programmer: [facility] Transcribe Date/Time: Mar 12 2022 12:19P Dictated by : STELLA DE LOS SANTOS MD This examination was interpreted and the report reviewed and electronically signed by: STELLA DE LOS SANTOS MD on Mar 12 2022 12:21PM [facility] Radiology Study observation (narrative) [facility] XR Wrist - right PA and Late ral and ObliqueOrdered By: [facility] Provider on 03-12-[address] [facility] Basophil percentageon 2021 Bilirubin [Mass/Vol] 0.40 mg/dL 0.20-1.00 [facility] Work Phone: Comment on above: For patients on eltr ombopag therapy, use of Dimension [place] TBIL is not recommended. Cholesterol [Mass/Vol] 200 mg/dL <200 [facility] Work Phone: Comment on above: <200 mg/dL Desirable 200-240 mg/dL Borderline >240 mg/dL High Risk Protein [Mass/Vol] 6.5 g/dL 6.4-8.2 [facility] Work Phone: Triglyceride [Mass/Vol] 70 mg/dL <199 [facility] Work Phone: Comment on above: The drugs N-Acetylcy steine and Metamizole may falsely depress this assay.Serum Triglycerides Reference Interval Normal <150 mg/dL Borderline high 150 - 199 mg/dL High 200 - 499 mg/dL Very High > or = 500 mg/dL Direct bilirubinon Bilirubin.direct [Mass/Vol] 0.12 mg/dL 0.00-0.30 [facility] Work Phone: Laboratory - Chemistry and C hemistry - challengeon 03-02-2022 ALP [Catalytic activity/Vol] 99 U/L 45-117 [facility] Work Phone: ALT [Catalytic activity/Vol] 46 U/L 13-56 [facility] Work Phone: Globulin (S) [Mass/Vol] 3.0 g/dL 2.2-4.2 [facility] Work Phone: Serum or plasma albumin yenifer urement (mass/volume)on 03-02-2022 Albumin [Mass/Vol] 3.5 g/dL 3.2-5.0 [facility] Work Phone: Serum or plasma cholesterol in HDL measurement (mass/volume)on 03-02-2022 Cholesterol in HDL [Mass/Vol] 102 mg/dL >40 [facility] Work Phone: Comment on above: The drugs N-Acetylcy steine and Metamizole may falsely depress this assay. Reference Range HDL <40 mg/dL Low HDL Cholesterol HDL >or= 60 mg/dL High HDL Cholesterol Serum or plasma cholesterol in VLDL measurement (mass/volume)on 03-02-2022 Cholesterol in VLDL [Mass/Vol] 14 mg/dL 5-40 [facility] Work Phone: Serum or plasma low density lipoprotein (LDL) cholesterol measurement (mass/volume)on 03-02-2022 Cholesterol in LDL [Mass/Vol] 84 mg/dL 0-130 [facility] Work Phone: Thin prep Papanicolaou smear with manual screeningon 03-02-2022 Thin prep Papanicolaou smear with manual screening 23 U/L 15-37 [facility] Work Phone: Final Surgical Pathology Rep jeny 07-01-2021 Final Surgical Pathology Report . Pathology Reports Accession: Collected Date/Time: Received Date/Time: Pathologist: [id number] 06/29/2021 10:44 EST 06/30/2021 09:03 MD VANI MALCOLM Final Surgical Pathology Report DIAGNOSIS: CECUM, BIOPSY - TUBULAR ADENOMA. COMMENT: [id number] CLINICAL INFORMATION: Procedure: COLONOSCOPY WITH ARGON PLASMA COAGULATION Preoperative diagnosis: HISTORY OF POLYP IN CECUM Postoperative diagnosis: SAME SPECIMEN: A CECUM POLYP - R/O ADENOMA GROSS DESCRIPTION: A. Received in formalin, labeled with the patients name, Case #[id number], and cecum polyp 4 castillo tissue fragments ranging from less than 0.1 to 0.2 cm. TS -1. Dictated by WALTER DILL MICROSCOPIC DESCRIPTION: Slides reviewed. Electronically Signed by Pathology Report verified by [facility] Electronically signed by VANI MORILLO MD Sign out Date: 07/01/2021 14:01 Performing Lab: [facility], [address] [place] [address] ([place]) Lab Report: CREATININE FINGE RSTICKon 01-19-2017 EGFR WB > 60.0000 mL/min >60 [facility] Work Phone: GE use only - for LinkLogic import when terms are not otherwise specified > 60.0000 mL/min Invalid Interpretation Code >60 [facility] Work Phone: Office Visiton 01-14-2017 Documentation of current medications (procedure) Done Invalid Interpretation Code [facility] Work Phone: Fall risk assessment No [facility] Work Phone: Protein mass conc Done [facility] Work Phone: Clinical Lists Update: Prelo aoc plans intelligence officer 01-11-2017 Left ventricular Ejection fraction 60 % [facility] Work Phone: Lab Report: Lipid Profileon 12-31-2016 Cholesterol 193 mg/dL 200 [facility] Work Phone: HDL Cholesterol 103 mg/dL [facility] Work Phone: LDL Cholesterol 80 mg/dL 0-130 [facility] Work Phone: Triglyceride 52 mg/dL [facility] Work Phone: very low density lipoproteins 10 mg/dL 5-40 [facility] Work Phone: Lab Report: Liver Profileon 12-31-2016 Alanine aminotransferase (ALT) 28 U/L 12-78 [facility] Work Phone: Albumin 3.8 g/dL 3.4-5.0 [facility] Work Phone: Alkaline phosphatase (ALP) 72 U/L Invalid Interpretation Code 45-117 [facility] Work Phone: ALP enzyme act/vol (Bld) 72 U/L 45-117 [facility] Work Phone: Aspartate aminotransferase (AST) 16 U/L 15-37 [facility] Work Phone: Bilirubin (direct) 0.11 mg/dL 0.00-0.30 [facility] Work Phone: Bilirubin (total) 0.40 mg/dL 0.20-1.00 [facility] Work Phone: Globulin 2.7 g/dL Invalid Interpretation Code 2.3-3.5 [facility] Work Phone: Globulin mass conc (S) 2.7 g/dL 2.3-3.5 [facility] Work Phone: Protein 6.5 g/dL 6.4-8.2 [facility] Work Phone: Clinical Lists Update: Clini dana Noteon 01-14-2016 Left ventricular Ejection fraction 60 % Invalid Interpretation Code [facility] Work Phone: Lab Report: Basic Metabolic Profile (BMP)on 12-24-2015 Anion gap 7 mmol/L Invalid Interpretation Code 5-15 [facility] Work Phone: Anion gap molar conc 7 mmol/L 5-[address] [facility] Work Phone: BUN/Creatinine Ratio 14.4 RATIO 10-[address] [facility] Work Phone: Calcium 8.8 mg/dL 8.5-10.1 [facility] Work Phone: Chloride 103 mmol/L 98-107 [facility] Work Phone: CO2 31.0 mmol/L Invalid Interpretation Code 21.0-32.0 [facility] Work Phone: CO2 ppres (BldV) 31.0 mmol/L 21.0-32.0 [facility] Work Phone: Creatinine 0.90 mg/dL 0.55-1.20 [facility] Work Phone: eGFR (non-black) 68 mL/min/{1.73_m2} >60 [facility] Work Phone: eGFR (non-black) 82 mL/min/{1.73_m2} Invalid Interpretation Code >60 [facility] Work Phone: EST GFR - AA 82 mL/min >60 [facility] Work Phone: Glucose 82 mg/dL Invalid Interpretation Code 70-110 [facility] Work Phone: Glucose mass conc 82 mg/dL 70-110 [facility] Work Phone: Potassium 4.0 mmol/L 3.5-5.1 [facility] Work Phone: Sodium 141 mmol/L 136-145 [facility] Work Phone: Urea nitrogen 13 mg/dL 7-18 [facility] Work Phone: Lab Report: Vitamin D,25 Hyd roxyon 12-24-2015 vitamin D 25-hydroxy, serum 41.1 ng/mL Invalid Interpretation Code [facility] Work Phone: Vitamin D 25-OH 41.1 ng/mL [facility] Work Phone: Office Visiton 12-15-2015 Documentation of current medications (procedure) Done Invalid Interpretation Code [facility] Work Phone: Tobacco smoking status NHIS Never smoker [facility] Work Phone: Tobacco use CPHS Never smoker Invalid Interpretation Code [facility] Work Phone: External Other: Preferred Me thod of Contacton 12-02-2014 methcontact secmsg [facility] Work Phone: Patient's prefered method of contact secmsg Invalid Interpretation Code [facility] Work Phone: Office Visiton 12-02-2014 cardiac risk group C [facility] Work Phone: General cardiovascular disease 10Y risk [#] [place].D'Agost[place] 2 % [facility] Work Phone: Lab Report: LIVERon 03-29-20 14 ALK 65 U/L Normal 50-136 [facility] Work Phone: GE use only - for [employer] import when terms are not otherwise specified 65 U/L Normal 50-136 [facility] Work Phone: Lab Report: MGon 11-16-2012 Magnesium 1.8 mg/dL Normal 1.8-2.4 [facility] Work Phone: Replaced Document: Cemjordi Ren CG Observationson 11-01-2011 EKG QRS axis -31 deg [facility] Work Phone: electrocardiogram interpretation Sinus Rhythm WITHIN NORMAL LIMITS Invalid Interpretation Code [facility] Work Phone: Interpretation Sinus Rhythm WITHIN NORMAL LIMITS [facility] Work Phone: P Meredith 53 deg [facility] Work Phone: P wave axis, electrocardiogram 53 deg Invalid Interpretation Code [facility] Work Phone: SC Interval 190 ms [facility] Work Phone: SC interval, electrocardiogram 190 ms Invalid Interpretation Code [facility] Work Phone: Pulse (Heart Rate) 413 ms Invalid Interpretation Code [facility] Work Phone: Pulse (Heart Rate) 78 /min Invalid Interpretation Code [facility] Work Phone: QRS axis, electrocardiogram -31 deg Invalid Interpretation Code [facility] Work Phone: QRS Duration 96 ms [facility] Work Phone: QRS duration, electrocardiogram 96 ms Invalid Interpretation Code [facility] Work Phone: QT Interval new path ms [facility] Work Phone: QT interval, electrocardiogram new path ms Invalid Interpretation Code [facility] Work Phone: T Meredith 67 deg [facility] Work Phone: T wave axis, electrocardiogram 67 deg Invalid Interpretation Code [facility] Work Phone: Vital Signs Date Time Vital Sign Value Performing Clinician Facility 04-26-2025 13:40-0400 Body height 165 cm Williams Esteban MD Work Phone: [facility] 04-26-2025 13:40-0400 Body height 165.1 cm Williams Esteban MD Work Phone: [facility] 04-26-2025 13:40-0400 Body mass index (BMI) [Ratio] 22.21 kg/m2 Williams Esteban MD Work Phone: [facility] 04-26-2025 13:40-0400 Body weight 60 kg Williams Esteban MD Work Phone: [facility] 04-26-2025 13:40-0400 Body weight 60.33 kg Williams Esteban MD Work Phone: [facility] 04-26-2025 13:40-0400 BP SITE #1 Williams Esteban MD Work Phone: [facility] 04-26-2025 13:40-0400 Diastolic blood pressure 83 mm[Hg] Williams Esteban MD Work Phone: [facility] 04-26-2025 13:40-0400 Heart rate 83 /min Williams Esteban MD Work Phone: [facility] 04-26-2025 13:40-0400 HGHTCHNVIS Williams Esteban MD Work Phone: [facility] 04-26-2025 13:40-0400 Systolic blood pressure 137 mm[Hg] Williams Esteban MD Work Phone: [facility] 04-26-2025 13:40-0400 VITALSDONE Williams Esteban MD Work Phone: [facility] 07-16-2024 11:03-0500 Diastolic Blood Pressure Non-Invasive 69 mm[Hg] DR EDUARDA RANDHAWA MD [facility] 07-16-2024 11:03-0500 Heart rate 54 /min DR EDUARDA RANDHAWA MD [facility] 07-16-2024 11:03-0500 Respiratory rate 13 /min DR EDUARDA RANDHAWA MD [facility] 07-16-2024 11:03-0500 Systolic Blood Pressure Non-Invasive 139 mm[Hg] DR EDUARDA RANDHAWA MD [facility] 07-16-2024 10:55-0500 Diastolic Blood Pressure Non-Invasive 74 mm[Hg] DR EDUARDA RANDHAWA MD [facility] 07-16-2024 10:55-0500 Heart rate 57 /min DR EDUARDA RANDHAWA MD [facility] 07-16-2024 10:55-0500 Respiratory rate 18 /min DR EDUARDA RANDHAWA MD [facility] 07-16-2024 10:55-0500 Systolic Blood Pressure Non-Invasive 139 mm[Hg] DR EDUARDA RANDHAWA MD [facility] 07-16-2024 10:54-0500 Diastolic Blood Pressure Non-Invasive 71 mm[Hg] DR EDUARDA RANDHAWA MD [facility] 07-16-2024 10:54-0500 Heart rate 58 /min DR EDUARDA RANDHAWA MD [facility] 07-16-2024 10:54-0500 Respiratory rate 14 /min DR EDUARDA RANDHAWA MD [facility] 07-16-2024 10:54-0500 Systolic Blood Pressure Non-Invasive 139 mm[Hg] DR EDUARDA RANDHAWA MD [facility] 07-16-2024 10:35-0500 Body temperature 98.06 [degF] DR EDUARDA RANDHAWA MD [facility] 07-16-2024 10:30-0500 Respiratory Rate - Anes 15 br/min DR EDUARDA RANDHAWA MD [facility] 07-16-2024 10:25-0500 Respiratory Rate - Anes 19 br/min DR EDUARDA RANDHAWA MD [facility] 07-16-2024 10:20-0500 Respiratory Rate - Anes 17 br/min DR EDUARDA RANDHAWA MD [facility] 07-16-2024 09:00-0500 Body height 165.[address] EDUARDA RANDHAWA MD [facility] 07-16-2024 09:00-0500 Body temperature 98.96 [degF] DR EDUARDA RANDHAWA MD [facility] 07-16-2024 09:00-0500 Body weight 62.[address] EDUARDA RANDHAWA MD [facility] 07-16-2024 09:00-0500 Heart rate 87 /min DR EDUARDA RANDHAWA MD [facility] 03-12-2022 11:31-0400 Body temperature 98.01 [degF] Norma Moraes MANUFACTURING OPERATOR.LINEN AIDE Work Phone: [facility] 03-12-2022 11:31-0400 Body weight 58.15 kg Norma Moraes MANUFACTURING OPERATOR.LINEN AIDE Work Phone: [facility] 03-12-2022 11:31-0400 Diastolic blood pressure 78 mm[Hg] Norma Moraes MANUFACTURING OPERATOR.LINEN AIDE Work Phone: [facility] 03-12-2022 11:31-0400 Heart rate 80 /min Norma Moraes MANUFACTURING OPERATOR.LINEN AIDE Work Phone: [facility] 03-12-2022 11:31-0400 Respiratory rate 18 /min Norma Moraes MANUFACTURING OPERATOR.LINEN AIDE Work Phone: [facility] 03-12-2022 11:31-0400 SaO2% (BldA) [Mass fraction] 100 % Onrma Moraes MANUFACTURING OPERATOR.LINEN AIDE Work Phone: [facility] 03-12-2022 11:31-0400 Systolic blood pressure 128 mm[Hg] Norma Moraes MANUFACTURING OPERATOR.LINEN AIDE Work Phone: [facility] 02-01-2022 09:34-0400 Body height 165.[address] Aster Faust Work Phone: [facility] Work Phone: 02-01-2022 09:34-0400 Body mass index (BMI) [Ratio] 20.9 kg/m2 Dr. Aster Faust Work Phone: [facility] Work Phone: 02-01-2022 09:34-0400 Body weight 57.[address] Aster Faust Work Phone: [facility] Work Phone: 02-01-2022 09:34-0400 Diastolic blood pressure 70 mm[Hg] Dr. Aster Faust Work Phone: [facility] Work Phone: 02-01-2022 09:34-0400 Heart rate 76 /min Dr. Aster Faust Work Phone: [facility] Work Phone: 02-01-2022 09:34-0400 Respiratory rate 16 /min Dr. Aster Faust Work Phone: [facility] Work Phone: 02-01-2022 09:34-0400 Systolic blood pressure 120 mm[Hg] Dr. Aster Faust Work Phone: [facility] Work Phone: 06-29-2021 11:22-0500 Diastolic Blood Pressure NBP [address] EDUARDA RANDHAWA MD [facility] 06-29-2021 11:22-0500 Respiratory rate 16 /min DR EDUARDA RANDHAWA MD [facility] 06-29-2021 11:22-0500 Systolic Blood Pressure NBP [address] EDUARDA RANDHAWA MD [facility] 06-29-2021 11:17-0500 Diastolic Blood Pressure NBP [address] EDUARDA RANDHAWA MD [facility] 06-29-2021 11:17-0500 Heart rate 55 /min DR EDUARDA RANDHAWA MD [facility] 06-29-2021 11:17-0500 Respiratory rate 13 /min DR EDUARDA RANDHAWA MD [facility] 06-29-2021 11:17-0500 Systolic Blood Pressure NBP [address] EDUARDA RANDHAWA MD [facility] 06-29-2021 11:08-0500 Diastolic Blood Pressure NBP [address] EDUARDA RANDHAWA MD [facility] 06-29-2021 11:08-0500 Heart rate 59 /min DR EDUARDA RANDHAWA MD [facility] 06-29-2021 11:08-0500 Respiratory rate 16 /min DR EDUARDA RANDHAWA MD [facility] 06-29-2021 11:08-0500 Systolic Blood Pressure NBP [address] EDUARDA RANDHAWA MD [facility] 06-29-2021 10:59-0500 Heart rate 52 /min DR EDUARDA RANDHAWA MD [facility] 06-29-2021 10:50-0500 Body temperature 97.88 [degF] DR EDUARDA RANDHAWA MD [facility] 06-29-2021 08:09-0500 Body height 166.[address] EDUARDA RANDHAWA MD [facility] 06-29-2021 08:04-0500 Body height 166.[address] EDUARDA RANDHAWA MD [facility] 06-29-2021 08:04-0500 Body temperature 98.78 [degF] DR EDUARDA RANDHAWA MD [facility] 06-29-2021 08:04-0500 Body weight [address] EDUARDA RANDHAWA MD [facility] 06-29-2021 08:04-0500 Heart rate 60 /min DR EDUARDA RANDHAWA MD [facility] 01-14-2017 09:59-0400 BMI (Body Mass Index) 20.79 kg/m2 [facility] Work Phone: 01-14-2017 09:59-0400 BP Diastolic 70 mm[Hg] Kishoretaltess [facility] Work Phone: 01-14-2017 09:59-0400 BP Systolic 112 mm[Hg] [facility]ess [facility] Work Phone: 01-14-2017 09:59-0400 Height 167.64 cm Kishoretaltess Luciano [facility] Work Phone: 01-14-2017 09:59-0400 Pulse (Heart Rate) 74 /min Kishoretaltess [facility] Work Phone: 01-14-2017 09:59-0400 Respiratory Rate 20 /min [facility] Work Phone: 01-14-2017 09:59-0400 Weight 58.42 kg Trinity [facility] Work Phone: 12-15-2015 09:23-0400 BMI (Body Mass Index) 20.33 kg/m2 Live Doherty NP [facility] Work Phone: 12-15-2015 09:23-0400 BP Diastolic 72 mm[Hg] Live Doherty NP [facility] Work Phone: 12-15-2015 09:23-0400 BP Systolic 130 mm[Hg] Live Doherty NP [facility] Work Phone: 12-15-2015 09:23-0400 BSA (Body Surface Area) 1.65 m2 Live Doherty NP [facility] Work Phone: 12-15-2015 09:23-0400 Pulse (Heart Rate) 84 /min Live Doherty BOBJ DEVELOPER [facility] Work Phone: 12-15-2015 09:23-0400 Respiratory Rate 12 /min Live Doherty BOBJ DEVELOPER [facility] Work Phone: 12-15-2015 09:23-0400 Weight 57.15 kg Live Doherty NP [facility] Work Phone: 11-01-2011 08:42-0400 Heart rate 413 ms Trinity Luciano [facility] Work Phone: 11-01-2011 08:42-0400 Heart rate 78 /min [facility] Work Phone: 11-01-2011 08:37-0400 Height 167.64 cm Live Doherty NP [facility] Work Phone: Encounters Encounter Date Encounter Type Care Provider Facility Start: 04-30-2025 ambulatory [facility] Facility :[facility] Start: 04-26-2025 Visit out of hours Williams wayne MD Work Phone: [employer] Work Phone: Start: 04-26-2025 In-person encounter Williams dumont MD Work Phone: [facility] Work Phone: Start: 03-21-2025 End: 03-21-2025 ambulatory Boogie Saucedo [facility] Start: 02-14-2025 End: 02-14-2025 ambulatory Chalon Jenni Facility:[facility] Start: 02-06-2025 End: 02-06-2025 ambulatory Chalon Jenni [facility] Start: 01-17-2025 End: 01-17-2025 ambulatory Chalon Jenni [facility] Start: 12-20-2024 End: 12-20-2024 ambulatory Chalon Jenni Facility:[facility] Start: 09-28-2024 End: 09-28-2024 ambulatory Aster Faust Facility:[facility] Start: 09-28-2024 End: 09-28-2024 [facility] Start: 09-13-2024 End: 09-13-2024 ambulatory Boogie Saucedo [facility] Start: 07-16-2024 End: 07-16-[address] EDUARDA RANDHAWA MD Facility:[facility] Start: 07-16-2024 End: 07-16-[address] EDUARDA RANDHAWA MD [facility] Start: 06-28-2024 ambulatory [facility] Start: 06-28-2024 End: 06-28-2024 ambulatory [facility] Facility:[facility] Start: 03-12-2022 End: 03-12-2022 ambulatory ASTER FAUST Facility:[facility] Start: 03-12-2022 End: 03-12-2022 Subsequent hospital visit by physician Xr [facility] Work Phone: Radiology Comment on above: Fall, initial encoun ter [W19.XXXA] Start: 03-12-2022 End: 03-12-2022 Patient encounter procedure Norma Moraes APRN.CNP Work Phone: [facility] Comment on above: Fall, initial encoun ter (Primary Dx); Right wrist pain Start: 03-02-[address] Aster Faust Work Phone: [facility] Start: 02-25-2022 Non-patient / Non-visit Dr. Damion Faust Work Phone: [facility] Start: 02-25-2022 End: 02-25-[address] Aster Faust Work Phone: [facility] Work Phone: Start: 02-25-2022 End: 02-25-[address] Aster Faust Work Phone: [facility] Start: 02-01-2022 End: 02-01-[address] Aster Faust Work Phone: [facility] Start: 01-14-2022 End: 01-14-2022 Patient encounter procedure [facility] Start: 11-10-2021 End: 11-10-2021 Patient encounter procedure [facility] Start: 09-24-2021 End: 09-24-2021 Patient encounter procedure [facility], [place] Start: 06-29-2021 End: 06-29-[address] EDUARDA RANDHAWA MD [facility] Start: 06-13-2020 Patient encounter status Norma Moraes APRN.LINEN AIDE Work Phone: [facility] Procedures Date Procedure Procedure Detail Performing Clinician Start: 04-26-2025 Blood pressure withi n normal parameters - no follow-up required Williams Esteban MD Work Phone: Start: 04-26-2025 BMI documented withi n normal parameters - no follow-up plan is required Williams Esteban MD Work Phone: Start: 04-26-2025 Current tobacco non- user cad cap copd pv dm Williams Esteban MD Work Phone: Start: 04-26-2025 Documentation of cur rent medications Williams Esteban MD Work Phone: Start: 04-26-2025 Pain assessment docu mented as positive - follow-up documented Williams Esteban MD Work Phone: Start: 03-12-2022 Radex wrist complete minimum 3 views Norma Moraes APRN.LINEN AIDE Work Phone: Start: 01-14-2022 Screening mammography Start: 09-24-2021 X-ray of lumbosacral spine Start: 07-01-2020 Lipid 1996 panel - S kathya or Plasma Xr [place] Work Phone: Start: 06-19-2020 Aortic valve structu re (body structure) DR EDUARDA RANDHAWA MD Comment on above: AND REPAIRED ANEURYS M Start: 08-28-[address] EDUARDA RANDHAWA MD Start: 12-26-[address] EDUARDA RANDHAWA MD Start: 01-14-2017 End: 01-14-2017 Follow Up Appt 1 year Hal Lund Start: 01-14-2017 End: 01-14-2017 PFM Hal Barnett MD Start: 12-27-2016 End: 12-31-2016 *Hepatic Function Panel Michelle lane PA-C Work Phone: Start: 12-27-2016 End: 12-31-2016 Lipid panel [AGGREGATE] Michelle lane PA-C Work Phone: Start: 12-15-2015 End: 12-26-2015 *Hepatic Function Panel Hal Barnett MD Start: 12-15-2015 End: 12-15-2015 Follow Up Appt 1 year Hal Lund Start: 12-15-2015 End: 12-26-2015 Lipid panel [AGGREGATE] Hal Barnett MD Start: 12-15-2015 End: 12-15-2015 PFM Hal Barnett MD Start: 03-31-2015 End: 12-26-2015 *Hepatic Function Panel Hal Barnett MD Start: 03-31-2015 End: 12-26-2015 Lipid panel [AGGREGATE] Hal Barnett MD Start: 12-18-2014 End: 12-23-2014 Ct thorax w/dye Hal Barnett MD Start: 12-02-2014 End: 12-03-2014 Documentation of current medications Hal Barnett MD Start: 12-02-2014 End: 12-18-2014 Echocardiography Hal Barnett MD Start: 12-02-2014 End: 12-02-2014 Follow Up Appt 1 year Hal Lund Start: 12-02-2014 End: 12-02-2014 PFM Hal Barnett MD Start: 01-25-2014 End: 03-29-2014 *Hepatic Function Panel Hal Barnett MD Start: 01-25-2014 End: 03-29-2014 Lipid panel [AGGREGATE] Hal Barnett MD Start: 12-18-2013 End: 12-19-2013 *BMP Hal Barnett MD Start: 12-05-2013 End: 12-24-2014 Ct thorax w/dye Hal Barnett MD Start: 11-26-2013 End: 12-05-2013 Echocardiography Hal Barnett MD Start: 11-26-2013 End: 12-26-2015 Follow Up Appt 1 year Hal Lund Start: 11-26-2013 End: 12-26-2015 PFM Hal Barnett MD Start: 07-28-2013 End: 08-10-2013 *Hepatic Function Panel Hal Barnett MD Start: 07-28-2013 End: 08-10-2013 Lipid panel [AGGREGATE] Hal Barnett MD Start: 11-17-2012 End: 11-29-2012 *Hepatic Function Panel Hal Barnett MD Start: 11-17-2012 End: 12-26-2015 Echocardiography Hal Barnett MD Start: 11-17-2012 End: 12-26-2015 Follow Up Appt 1 year Hal Lund Start: 11-17-2012 End: 11-29-2012 Lipid panel [AGGREGATE] Hal Barnett MD Start: 11-17-2012 End: 12-26-2015 PFM Hal Barnett MD Start: 11-04-2011 End: 11-04-2011 *BMP Gil Stacy MD Start: 11-04-2011 End: 11-04-2011 *Hepatic Function Panel Gil Stacy MD Start: 11-04-2011 End: 11-04-2011 Lipid panel [AGGREGATE] Gil Stacy MD Start: 11-04-2011 End: 11-04-2011 Magnesium Gil Stacy MD Start: 11-01-2011 End: 11-04-2011 *BMP Gil Stacy MD Start: 11-01-2011 End: 11-04-2011 Echocardiography Gil Stacy MD Start: 11-01-2011 End: 11-01-2011 Electrocardiogram, complete Gil Stacy MD Start: 11-01-2011 End: 11-04-2011 Follow Up Appt 1 year Gil Stacy MD Start: 11-01-2011 End: 11-04-2011 Magnesium Gil Stacy MD Cholecystectomy DR EDUARDA PORTILLO MD Hand surgery DR EDUARDA JURADO MD Comment on above: right Hysterectomy DR EDUARDA JURADO MD Plan of Treatment Date Care Activity Detail Author Start: 2031 RSV Vaccine (1 - 1-dose 75+ series) RSV Vaccine (1 - 1-dose 75+ series) [facility] Start: 07-01-2025 Lipid panel Lipid Screening [facility] Start: 07-01-2025 LIPID SCREEN LIPID SCREEN [facility] Start: 04-26-2025 End: 04-26-2025 [employer] Work Phone: Start: 10-01-2024 Urine microalbumin profile DTaP,Tdap,Td Vaccine (2 - Td or Tdap) [facility] Start: 02-26-2024 Covid-19 Vaccine ( season) Covid-19 Vaccine ( season) [facility] Start: 02-26-2024 Influenza vaccination [facility] (#[facility] Start: 07-01-2023 DIABETES SCREEN DIABETES SCREEN [facility] Start: 07-01-2023 Diabetes Screening Diabetes Screening [facility] Start: 06-27-2023 Advance Directive Discussion Advance Directive Discussion [facility] Start: 03-12-2023 BP CONTROLLED (<130/80) BP CONTROLLED (<130/80) [facility] in Start: 12-18-2022 Pneumococcal Vaccine: 65+ (2 of 2 - PCV) Pneumococcal Vaccine: 65+ (2 of 2 - PCV) [facility] Start: 02-25-2022 Influenza vaccination INFLUENZA (#1) [facility] Start: 07-01-2021 Hepatitis B surface antibody level LDL CHOLESTEROL [facility] Start: 06-27-2021 ADVANCE DIRECTIVE DISCUSSION ADVANCE DIRECTIVE DISCUSSION [facility] Start: 2021 BONE DENSITY BONE DENSITY [facility] Start: 2021 PNEUMOCOCCAL: 65+ (1 - PCV) PNEUMOCOCCAL: 65+ (1 - PCV) [facility] Start: 2021 Screening for osteoporosis Bone Density Screening [facility] Start: 01-11-2018 End: 01-11-2018 Appointment Appointment [facility] Work Phone: Start: 01-02-2018 End: 01-12-2017 *Hepatic Function Panel *Hepatic Function Panel [facility] Work Phone: Start: 01-02-2018 End: 01-12-2017 Lipid panel [AGGREGATE] *Lipid Profile CC PCP [facility] Work Phone: Start: 01-14-2017 End: 01-14-2017 Appointment Appointment [facility] Work Phone: Start: 01-14-2017 End: 01-14-2017 Ct thorax w/dye CT Chest with Contrast [facility] Work Phone: Start: 01-14-2017 End: 01-14-2017 Follow Up Appt 1 year Follow Up Appt 1 year [facility] Work Phone: Start: 01-14-2017 End: 01-14-2017 PFM PFM [facility] Work Phone: Start: 12-27-2016 End: 12-31-2015 *Hepatic Function Panel *Hepatic Function Panel [facility] Work Phone: Start: 12-27-2016 End: 12-31-2015 Lipid panel [AGGREGATE] *Lipid Profile CC PCP [facility] Work Phone: Start: 12-15-2015 End: 12-26-2015 *Hepatic Function Panel *Hepatic Function Panel [facility] Work Phone: Start: 12-15-2015 End: 12-15-2015 Echocardiography Echocardiogram (complete) [facility] Work Phone: Start: 12-15-2015 End: 12-15-2015 Follow Up Appt 1 year Follow Up Appt 1 year [facility] Work Phone: Start: 12-15-2015 End: 12-26-2015 Lipid panel [AGGREGATE] *Lipid Profile CC PCP [facility] Work Phone: Start: 12-15-2015 End: 12-15-2015 PFM PFM [facility] Work Phone: Start: 03-31-2015 End: 12-26-2015 *Hepatic Function Panel *Hepatic Function Panel [facility] Work Phone: Start: 03-31-2015 End: 12-26-2015 Lipid panel [AGGREGATE] *Lipid Profile CC PCP [facility] Work Phone: Start: 12-18-2014 End: 12-23-2014 Ct thorax w/dye CT Chest with Contrast [facility] Work Phone: Start: 12-02-2014 End: 12-02-2014 Echocardiography Echocardiogram (complete) [facility] Work Phone: Start: 12-02-2014 End: 12-02-2014 Follow Up Appt 1 year Follow Up Appt 1 year [facility] Work Phone: Start: 12-02-2014 End: 12-02-2014 PFM PFM [facility] Work Phone: Start: 01-25-2014 End: 03-29-2014 *Hepatic Function Panel *Hepatic Function Panel [facility] Work Phone: Start: 01-25-2014 End: 03-29-2014 Lipid panel [AGGREGATE] *Lipid Profile CC PCP [facility] Work Phone: Start: 12-18-2013 End: 12-19-2013 *BMP *BMP [facility] Work Phone: Start: 12-05-2013 End: 12-05-2013 Ct thorax w/dye CT Chest with Contrast [facility] Work Phone: Start: 11-26-2013 End: 11-26-2013 Echocardiography Echocardiogram (complete) [facility] Work Phone: Start: 11-26-2013 End: 12-26-2015 Follow Up Appt 1 year Follow Up Appt 1 year [facility] Work Phone: Start: 11-26-2013 End: 12-26-2015 PFM PFM [facility] Work Phone: Start: 07-28-2013 End: 08-10-2013 *Hepatic Function Panel *Hepatic Function Panel [facility] Work Phone: Start: 07-28-2013 End: 08-10-2013 Lipid panel [AGGREGATE] *Lipid Profile CC PCP [facility] Work Phone: Start: 11-17-2012 End: 11-29-2012 *Hepatic Function Panel *Hepatic Function Panel [facility] Work Phone: Start: 11-17-2012 End: 12-26-2015 Echocardiography Echocardiogram (complete) [facility] Work Phone: Start: 11-17-2012 End: 12-26-2015 Follow Up Appt 1 year Follow Up Appt 1 year [facility] Work Phone: Start: 11-17-2012 End: 11-29-2012 Lipid panel [AGGREGATE] *Lipid Profile CC PCP [facility] Work Phone: Start: 11-17-2012 End: 12-26-2015 PFM PFM [facility] Work Phone: Start: 10-25-2012 End: 11-04-2011 *BMP *BMP [facility] Work Phone: Start: 10-25-2012 End: 11-04-2011 *Hepatic Function Panel *Hepatic Function Panel [facility] Work Phone: Start: 10-25-2012 End: 11-04-2011 Lipid panel [AGGREGATE] *Lipid Profile [facility] Work Phone: Start: 10-25-2012 End: 11-04-2011 Magnesium *Magnesium [facility] Work Phone: Start: 11-01-2011 End: 11-04-2011 *BMP *BMP [facility] Work Phone: Start: 11-01-2011 End: 11-01-2011 Echocardiography Echocardiogram (complete) [facility] Work Phone: Start: 11-01-2011 End: 11-01-2011 Electrocardiogram, complete EKG (In office) [facility] Work Phone: Start: 11-01-2011 End: 11-04-2011 Follow Up Appt 1 year Follow Up Appt 1 year [facility] Work Phone: Start: 11-01-2011 End: 11-01-2011 Magnesium *Magnesium [facility] Work Phone: Start: 2006 SHINGRIX VACCINE (1 of 2) SHINGRIX VACCINE (1 of 2) [facility] Start: 2001 COLOGUARD (FIT-DNA) COLOGUARD (FIT-DNA) [facility] Start: 2001 Colonoscopy COLONOSCOPY [facility] Start: 2001 COLORECTAL CANCER SCREENING COLORECTAL CANCER SCREENING [facility] Start: [address] COLONOGRAPHY [facility] Start: 2001 FECAL OCCULT BLOOD FECAL OCCULT BLOOD [facility] Start: 2001 Screening for malignant neoplasm of colon [facility] Start: 2001 SIGMOIDOSCOPY SIGMOIDOSCOPY [facility] Start: 1996 Mammography MAMMOGRAM [facility] Start: 1996 Screening for malignant neoplasm of breast Mammogram Screening [facility] Start: 1975 Urine microalbumin profile DTAP,TDAP,TD (1 - Tdap) [facility] Start: 1974 ANNUAL PCP TEAM CHRONIC DISEASE VISIT ANNUAL PCP TEAM CHRONIC DISEASE VISIT [facility] Start: 1974 Anxiety Screening Anxiety Screening [facility] Start: 1974 BP Controlled (<130/80) BP Controlled (<130/80) [facility] Start: 1974 HEPATITIS C SCREENING HEPATITIS C SCREENING [facility] Start: 1974 Hepatitis C screening Hepatitis C Screening [facility] Start: 1974 HIV SCREENING HIV SCREENING [facility] Patient Education [facility] Work Phone: Immunizations Immunization Date Immunization Notes Care Provider Ze reyez 04-29-2023 influenza virus vaccine, unspecified formulation Xr [facility] Work Phone: [facility] 09-19-2020 COVID-19 vaccine, ag e 12+ yr (PFIZER-BIONTECH - PURPLE TOP) Norma Moraes MANUFACTURING OPERATOR.LINEN AIDE Work Phone: [facility] 08-29-2020 COVID-19 vaccine, ag e 12+ yr (PFIZER-BIONTECH - PURPLE TOP) Norma Moraes MANUFACTURING OPERATOR.LINEN AIDE Work Phone: [facility] Work Phone: 04-09-2020 influenza, injectabl e, quadrivalent, contains preservative Norma Moraes MANUFACTURING OPERATOR.LINEN AIDE Work Phone: [facility] Work Phone: 04-06-2018 influenza virus vaccine, unspecified formulation Norma Moraes MANUFACTURING OPERATOR.LINEN AIDE Work Phone: [facility] 04-19-2017 influenza virus vaccine, unspecified formulation Norma Moraes MANUFACTURING OPERATOR.LINEN AIDE Work Phone: [facility] 03-25-2016 influenza virus vaccine, unspecified formulation Norma Moraes MANUFACTURING OPERATOR.LINEN AIDE Work Phone: [facility] Payers Date Payer Category Payer Private Health Insurance [id number] 2024 Self-pay [id number] 2022 Medicare AETNA MEDICARE A ETNA MEDICARE PPO [id number] 2022-Present [phone] [address] [place] [address] PPO [id number] 2022 Private Health Insurance [id number] 2016 Unknown [id number] 1956 Unknown [id number] 27 Medicare [id number] Unknown [id number] Unknown [id number] 62 Unknown [id number] 62 Unknown [id number] 62 Unknown [id number] 62 Unknown [id number] 62 Unknown [id number] 62 Unknown [id number] [id number] 62 Unknown [id number] [id number] 62 Unknown [id number] 62 Unknown [id number] 62 Unknown [id number] 62 Unknown [id number] 62 Social History Date Type Detail Facility Start: 01-28-2021 End: 02-01-2022 Tobacco smoking status DCIS Unknown if ever smoked [facility] Work Phone: Start: 1955 Sex Assigned At Female [facility] Start: 04-02-2016 End: 04-26-2025 Tobacco smoking status DCIS Never smoked tobacco [facility] Start: 04-02-2016 Tobacco use and exposure Smokeless tobacco non-user [facility] Start: 03-12-2022 Alcohol intake Current drinke r of alcohol (finding) [facility] Start: 04-05-2016 History SDOH Alcohol Comment rare, once a year [facility] Start: 03-02-2022 End: 03-12-2022 Exposure to SARS-CoV-2 (event) Not sure [facility] Work Phone: Start: 06-02-2020 End: 03-12-2022 History of Social function [facility] Start: 03-12-2022 End: 04-26-2025 Tobacco use panel [facility] National Score (1-10 0), lower number is lower risk Not on file [facility] Start: 06-10-2020 Gender identity Identifies as female gender (finding) [facility] Start: 06-10-2020 Sexual orientation Heterosexual (fin ding) [facility] Sexual O[facility] Start: 08-05-2005 Sex Female (finding) [facility] Medical Equipment Procedure Code Equipment Code Equipment Origin al Text Equipment Identifier Dates Graft Hemashield [place] 28mm Straight Tube Woven 2 Velour Collagen 30cm - [id number] Start: 06-16-2020 Abm-Zu-J-Kind Im plant - [id number] Start: 04-07-2016 Comment on above: Description: 2.0 mm x 12 mm VA locking s crew Blanco Thk1.65mm P tfe 4x.5in Cardiovascular Sterile - [id number] Start: 06-16-2020 Valve Diaz Inspiris Resilia 23mm Pericardial Aortic Bioprosthesis - [id number] Start: 06-16-2020 Comment on above: Description: No rinse valve per manufact urer Ttm-Mx-T-Kind [employer] plant - [id number] Start: 04-07-2016 Comment on above: Description: 2.0 MM CONDYLAR PLATE Uuy-Nt-Z-Kind Im plant - [id number] Start: 04-07-2016 Comment on above: Description: 2.0 CORTEX SCREW X 10MM Ovk-Jc-P-Kind Im plant - [id number] Start: 04-07-2016 Comment on above: Description: 2.0 mm VA locking screw Lwf-Aw-J-Kind Im plant - [id number] Start: 04-07-2016 Comment on above: Description: 2.0 mm x 11mm VA locking sc rew Blanco Thk1.65mm P tfe 4x.5in Cardiovascular Sterile - [id number] Start: 06-16-2020 Functional Status Date Assessment Result Facility 07-16-2024 Functional Status Repositions self [facility] 07-16-2024 Functional Status Sensory Defici ts Hearing deficit, left ear, Hearing deficit, right ear [facility] Mental Status Date Assessment Result Facility 04-26-2025 Cognitive Function [facility] Work Phone: 07-16-2024 Mental Status Oriented x 4 [facility] Clinical Notes 05-27-2020 to 07-16-2024 Note Date & Type Note Facility 07-16-2024 Evaluation + Plan note Extrac karen from: Title:Clinical Document Author:EDUARDA RANDHAWA Date:07/16/24 [place] ADMISSION HISTORY AN D PHYSICIAL CHIEF COMPLAINT: HISTORY OF PRESENT ILLNESS: REVIEW OF SYSTEMS: ACTIVE PROBLEMS: (5) Allergic rhinitis (061725300) Aortic valve disorder (70572830) Depression (996504625) Gastroesophageal reflux disease (274330947) Hypertension (71640723) MEDICATIONS: Active Inpt Meds: vancomycin Start: 07/16/24 6:00:00 EST, Dose = 750 mg, = 15 mL, IV Piggyback, PREOP pharm, 18 hour(s), Stop: 07/16/24 23:59:00 EST, Rate: 265 mL/hr, Infuse over: 60 minute(s), 0 Active PRN Meds: None One Time Meds: None Active IV Meds: Lactated Ringers Infusion 1,000 mL (LR 1,000 mL) Start: 07/16/24 8:55:00 EST, Rate: 50 mL/hr, 07/16/24 8:55:00 EST Sodium Chloride 0.9% intravenous solution 500 mL (Normal Saline 500 mL 500 mL) Start: 07/16/24 9:07:00 EST, Rate: 20 mL/hr, 07/16/24 9:07:00 EST ALLERGIES: (9) Adalat amoxicillin Bextra Ceftin Cleocin HCl Macrobid penicillin sulfamethoxazole Vioxx FAMILY HISTORY: SOCIAL HISTORY: PHYSICAL EXAM: VITALS: JqlgzuJzrpCJCihpfMFLoF8HNI8HgnrHe(kg) 07/16 10:25----48--98--07/16 62.3 07/16 10:20----56--98-- 07/16 10:15----61--97-- 07/16 09:0037.2--483945PV 24 Hr Tmax: 37.2 at 07/16 09:00 36 Hr Tmax: 37.2 at 07/16 09:00 Vital Signs are the last 5 in the past 48 hours. Weights display the last 5 within 7 days. Initial Wt: 07/16 62.3 kg 137 lb Current Wt: 07/16 62.3 kg 137 lb GENERAL: HEENT: CARDIOVASCULAR: RESPIRATORY: ABDOMEN: EXREMETIES: NEUROLOGICAL: PSYCHIATRIC: LABS: No 36hr Lab Data DIAGNOSTICS: IMPRESSION: PLAN: History and Physical Update I have examined the patient; reviewed the H&P and there are no changes to the H&P unless noted below. [facility] 01-20-2025 Hospital Discharge instructions Patient Education 07/16/2024 10:45:39 Colonoscopy, Adult, Care After, Kvrc-os-Mngj Colonoscopy, Adult, Care After This sheet gives [...] are soft and easy to digest. Take spnc-sma-wsmklyf or prescription medicines only as told by [...] 07/16/2011 Document Revised: 04/13/2018 Document Reviewed: 03/07/2017 [employer] Patient Education 2020 [employer]. 07/16/2024 10:45:31 Monitored Anesthesia Care, Care After Monitored Anesthesia Care, Care After These instructions provide you with information about caring for yourself after your procedure. Your health care provider may also give you more specific instructions. Your treatment has been plannedaccording to current medical practices, but problems sometimes [...] have someone help care for you until youare awake and alert. Rest as needed. Do [...] before eating solid foods. General instructions Take gshc-cml-ufuezgl and prescription medicines only as told by [...] 10/03/2016 Document Revised: 09/11/2018 Document Reviewed: 10/03/2016 [employer] Patient Education 2020 [employer]. Follow Up Care 07/04/2024 12:36:20 With:EDUARDA RANDHAWA MD Address: [address] [phone] When: Unknown Comments:CALL DR RANDHAWA'S OFFICE WITH ANY QUESTIONS OR CONCERNS. GO TO THE EMERGENCY ROOM WITH ANY URGENT CONCERNS. NO POLYPS WERE FOUND TODAY [facility] 01-20-2025 Note Discharge Instructions Thank you for allowing [facility] to assist you with your healthcare needs. The following is importantdischarge information regarding your hospital visit. Your Care Team RODERICK LEWIS MD, DR.. Your Diagnosis CLEAN COLONOSCOPY What to do next Follow Up Appointments Follow Up with EDUARDA RANDHAWA MD Where:[address] [place] [phone] Additional Information: CALL DR RANDHAWA'S OFFICE WITH ANY QUESTIONS OR CONCERNS. GO TO THE EMERGENCYROOM WITH ANY URGENT CONCERNS. NO POLYPS WERE FOUND TODAY The Following Activity and Diet Have Been Ordered for You Discharge Activity - Ordered -- NO activity restrictions, 07/16/24 10:37:00 EST Discharge Diet - Ordered -- Follow the post-operative/post-procedure diet instructions provided by your physician's office.,07/16/24 10:37:00 EST The Following Equipment Has Been Ordered for You Discharge Home Equipment Discharge Wound Care - Ordered -- Follow the post-operative/post-procedure wound care instructions provided by your physician's office., 07/16/24 10:37:00 EST Allergies Adalat Bextra Ceftin Cleocin HCl Macrobid Vioxx amoxicillin penicillin sulfamethoxazole Medications Please ask your primary doctor or pharmacist before taking any other medication not listed, including over the counter drugs, herbal medications, vitamins and or supplements as they may interact withyour home medications. What How Much When Instructions Last Dose Unchanged alendronate (alendronate 70 mg oral tablet) Unchanged aspirin (Adult Aspirin 81 mg oral tablet, chewable) 1 tab(s) Chewed Once a day Unchanged buPROPion (Wellbutrin XL 150 mg/ 24 hours oral tablet, extended release) 2 tab(s) by mouth Every 24 hours Unchanged cholecalciferol (D3) 1000 IU by mouth Once a day Unchanged dilTIAZem (Cardizem) 120 Milligram by mouth Once a day with a meal Unchanged estradiol topical (estradiol 0.1 mg/ g vaginal cream) 1 Applicatorful Vaginal Twice a week Unchanged fluticasone nasal (fluticasone proprionate NASAL 50 mcg/ spray) 2 spray(s) each nostril Two (2) times a day Unchanged herbal/ nutritional product (Probiotic) 1 million to 10 billion by mouth Every day Unchanged pantoprazole (pantoprazole 40 mg oral enteric coated tablet) 1 tab(s) by mouth Once a day Unchanged polyethylene glycol 3350 (MiraLax oral powder for reconstitution) 17 gram(s) by mouth Two (2) times a day Unchanged sertraline (Zoloft 100 mg oral tablet) 1.5 tab(s) by mouth Once a day Unchanged zolpidem (Ambien) 5 Milligram by mouth Daily at bedtime as needed for as needed for sleep Please take this list to your next doctor s visit. Bring all medications you take, including over the counter medications, herbals and other supplements with you to your doctor s visit. Patients and families are reminded to discard old lists and to update any records with all medication providers or retail pharmacies. Education Materials Colonoscopy, Adult, Care After This sheet gives [...] the first 24 hours after the procedure: ? Do not drive or use machinery. ? Do not sign important documents. ? Do not drink alcohol. ? Do your daily activities more slowly than normal. ? Eat foods that are soft and easy to digest. Take qqfi-mum-unqpwwd or prescription medicines only as told by your doctor. To help cramping and bloating: Try walking around. Put heat on your belly (abdomen) as told by your doctor. Use a heat source that your doctor recommends, such as a moist heat pack or a heating pad. ? Put a towel between your skin and the heat source. ? Leave the heat on for 20 30 minutes. ? Remove the heat if your skin turns bright [...] 07/16/2011 Document Revised: 04/13/2018 Document Reviewed: 03/07/2017 [employer] Patient Education 2020 [employer]. Monitored Anesthesia Care, Care After These instructions provide you with information about caring for yourself after your procedure. Your health care provider may also give you more specific instructions. Your treatment has been plannedaccording to current medical practices, but problems sometimes [...] have someone help care for you until youare awake and alert. Rest as needed. Do not: ? Participate in activities in which you could fall or become injured. ? Drive. ? Use heavy machinery. ? Drink alcohol. ? Take sleeping pills or medicines that cause drowsiness. ? Make important decisions or sign legal documents. ? Take care of children on your own. Eating and drinking Follow the diet that is recommended by your health care provider. If you vomit, drink water, juice, or soup when you can drink without vomiting. Make sure you have little or no nausea before eating solid foods. General instructions Take usln-flm-wsecvar and prescription medicines only as told by your health care provider. If you have sleep apnea, surgery and certain medicines can increase your risk for breathing problems. Follow instructions from your health care provider about wearing your sleep device: ? Anytime you are sleeping, including during daytime naps. ? While taking prescription pain medicines, sleeping medicines, or [...] 10/03/2016 Document Revised: 09/11/2018 Document Reviewed: 10/03/2016 [employer] Patient Education 2020 [employer] Additional Information VACCINATE! IT SAVES LIVES! Members of the community who have not yet received the COVID-19 vaccine and would like to receive it can visit one of [facility] vaccine clinics. There are many vaccine clinic locations within the [facility]. For locations and available times, please visit [email or web address]/. It is important to note that some COVID mobile vaccine clinics are held outdoors and may be canceled in rainy or stormy conditions. To learn more about pediatric vaccinations (ages 5-11), we invite you to visit the [facility] webpage. [email or web address] learn more about the COVID-19 vaccine, we invite you to visit the CDC website for a list of frequently asked questions.https://www.cdc.gov/coronavirus/2019-ncov/vaccines/faq.html [facility] Patient Portal Access Instructions: Stay connected with your healthcare team and access your personal medical information anytime with the [facility] Patient Portal. Please follow the directions below to create your [facility] account: 1.Access the email account you provided upon registration to the hospital/physician office.2.Look for an invitation email from [facility].3.Open the email and access the invitation link: AcceptInvitation to [facility].4.Fill in the required norman to create your account. To access your account, visit [email or web address]. Click the blue button labeled Access Patient Portal and then log in with the username and password that you created in the steps above. You will be able to view your test results, lab results, a summary of your visits, upcoming appointments and more. There is also a convenient messaging option where you can send secure messages to your [employer]. In addition, you will have the ability to download any documents or summaries to your computer and/or send the information securely to a physician. Remember that your healthcare information is confidential, so carefully consider who you will allowto register on the [facility] Patient Portal for access to your information. You can also access the [facility] Patient Portal on the [facility] courtney. Simply click on Patient Portal and then log into your account. If you would like to receive a full copy of your medical records, please contact the [facility] Medical Records Department by calling [phone], Tuesday through Tuesday between 8 a.m. and 4:30 p.m. HOW TO SAFELY DISPOSE OF PRESCRIPTION MEDICATIONS Please use one of the following methods to safely dispose of your unused medications. 1.Use a drug disposal kit: the drug disposal pouch allows you to safely discard your old and unuseddrugs. Ask your nurse to give you one when you are discharged.2.Visit a local take-back location: Many local pharmacies and police departments have programs that collect old and unwanted prescriptiondrugs. Call your local pharmacy or go to http://bit.[employer]/3J2Vx4e to find one close to you.3.Make use of household items: Use cat litter or old coffee grounds to dispose medications if other options arenot available. Mix your drugs with these household products, seal them in an airtight container andthrow it into the garbage. Call [facility]: [phone] to be sure your drugs can be disposed of in this way. Some medicines may require a different approach.4.Never flush your medications down the toilet. IF YOU HAVE BEEN PRESCRIBED AN OPIOID FOR PAIN If you have been prescribed an opioid (such as hydrocodone, oxycodone or morphine), it is critical to understand the possible side effects and risks of opioid pain medications. Even when taken as directed, opioids can have several side effects including: Tolerance, meaning you might need to take more of a medication for the same pain relief. Nausea, vomiting and/or constipation. Sleepiness, dizziness, dry mouth, confusion, depression or itching. Physical dependence, meaning you have withdrawal symptoms when a medication is stopped, can develop within a few days. KNOW YOUR RESPONSIBILITIES It is important to know exactly how much and how often to take the opioid pain medications you are prescribed. Never take opioids in higher amounts or more often than prescribed. Do not combine opioids with alcohol or other drugs that cause drowsiness, such as benzodiazepines, also known as benzos, including diazepam and alprazolam, muscle relaxants or sleep aids. Never sell or share prescription opioids. This is illegal. Store opioids in a secure place and out of reach of others (including children, family, friends and visitors). The last page of this document has been signed and retained as a CHART COPY. Signatures Patient Education Materials Colonoscopy, Adult, Care After, [place] Monitored Anesthesia Care, Care After Medication Leaflets My discharge plan and instructions have been reviewed and explained to me and I,BHAVIN HERNANDEZ understand my current condition and have read and understand these discharge instructions. I have receiveda written copy of the plan/instructions. If I have questions, I am aware that I should contact my do ctor. 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 Respiratory function: lungs are clear to auscultation. Respiratory support: none. CV function: Normal rate. Cardiovascular support: none. Pain. Nausea status: denies nausea. Postoperative hydration status: within normal limits. Digitally Signed by DORCAS RODRIGUEZ on 07/16/2024 10:42 AM [facility]01-20-2025 Note Date of Service 07/16/2024 Procedure Name High risk screening colonoscopy Consent Taken before procedure Indication History of colon polyps Location [facility] Pre-Procedure Exam History of colon polyps Procedural Sedation Anesthesia provided a MAC Technique The patient was brought to the OR and placed left shoulder down. Colonoscope was passed into the rectum and advanced up to the left colon there was some redundancy to the left colon. The transverse colon mucosa appeared normal right colon the base the cecum was photographed the appendiceal orifice was noted devious polyp showed no evidence of any growth in the cecum. Cross the transverse colon there were no obvious large polyps splenic flexure there was good visualization throughout in the distal sigmoid and rectum mucosa was normal retroflexion performed the rectum revealed internal hemorrhoids. The colon was decompressed the patient tolerated procedure well. Note the patient received IV vancomycin and gentamicin prior to the procedure for her aortic valve. Post-Procedure Exam High risk screening colonoscopy Findings No obvious polyps internal hemorrhoids noted Complications None apparent Total Time Proximately 25 minutes Assessment/Plan Orders: Lactated Ringers Infusion 1,000 mL(LR 1,000 mL), 1000 mL, Intravenous Sodium Chloride 0.9% intravenous solution 500 mL(Normal Saline 500 mL 500 mL), 500 mL, Intravenous Bedrest, 07/16/24 10:37:00 EST, Strict, continuous, Constant order, Lying on side until alert or asordered Bedrest, 07/16/24 10:37:00 EST, Strict, continuous, Constant order, Lying on side until alert or asordered Call Parameters, 07/16/24 10:37:00 EST, Notify for vomiting, severe pain, signs of bleeding, severeabdominal pain, distention or rigidity, Constant order Communication Order (scheduled), 07/16/24 8:55:00 EST, Once, 07/16/24 8:55:00 EST, Pathology TissueRequest Communication Order (scheduled), 07/16/24 8:55:00 EST, Once, 07/16/24 8:55:00 EST, Urine Test or waiver for women of child bearing age Communication Order (scheduled), 07/16/24 8:55:00 EST, Once, 07/16/24 8:55:00 EST, Fasting Blood Sugar priot to procedure of patient is diabetic Diet Order, 07/16/24 10:37:00 EST, Start Meal: Next meal, Clear Liquid Diet, Post exam or after gagreflex returns if EGD, Constant Order, : No, per patient, : No Discharge, 07/16/24 8:55:00 EST, Discharged to: Home, when able to ambulate and after being seen byphysician Discharge Activity, NO activity restrictions, 07/16/24 10:37:00 EST Discharge Diet, Follow the post-operative/post-procedure diet instructions provided by your physician's office., 07/16/24 10:37:00 EST Discharge Wound Care, Follow the post-operative/post-procedure wound care instructions provided by your physician's office., 07/16/24 10:37:00 EST Post Procedure Assessment, 07/16/24 10:37:00 EST, Stop Date 07/16/24 10:37:00 EST, [place] in [facility] Recovery Room until Zari Score of 12 or Preprocedure Sign Consent, 07/16/24 8:55:00 EST, Once, For Colonoscopy Vital Signs, 07/16/24 10:37:00 EST, q15min, 1 hour(s), 07/16/24 11:30:00 EST Vital Signs, 07/16/24 10:37:00 EST, q30min, 1 hour(s), 07/16/24 11:30:00 EST Vital Signs PRN, 07/16/24 10:37:00 EST, PRN order Follow Up/Recommendation Consider repeat colonoscopy in 7 to 10 years Digitally Signed by EDUARDA RANDHAWA MD on 07/16/2024 10:40 AM [facility]01-20-2025 Note [place] ADMISSION HISTORY AND PHYSICIAL CHIEF COMPLAINT: HISTORY OF PRESENT ILLNESS: REVIEW OF SYSTEMS: ACTIVE PROBLEMS: (5) Allergic rhinitis (828972184) Aortic valve disorder (16545105) Depression (955944560) Gastroesophageal reflux disease (823013538) Hypertension (83782921) MEDICATIONS: Active Inpt Meds: vancomycin Start: 07/16/24 6:00:00 EST, Dose = 750 mg, = 15 mL, IV Piggyback, PREOP pharm, 18 hour(s), Stop: 07/16/24 23:59:00 EST, Rate: 265 mL/hr, Infuse over: 60 minute(s), 0 Active PRN Meds: None One Time Meds: None Active IV Meds: Lactated Ringers Infusion 1,000 mL (LR 1,000 mL) Start: 07/16/24 8:55:00 EST, Rate: 50 mL/hr, 07/16/24 8:55:00 EST Sodium Chloride 0.9% intravenous solution 500 mL (Normal Saline 500 mL 500 mL) Start: 07/16/24 9:07:00 EST, Rate: 20 mL/hr, 07/16/24 9:07:00 EST ALLERGIES: (9) Adalat amoxicillin Bextra Ceftin Cleocin HCl Macrobid penicillin sulfamethoxazole Vioxx FAMILY HISTORY: SOCIAL HISTORY: PHYSICAL EXAM: VITALS: CbvvpeQwgfDTFszknHCEjD6SBJ0BjliMf(kg) 07/16 10:25----48--98--07/16 62.3 07/16 10:20----56--98-- 07/16 10:15----61--97-- 07/16 09:0037.2--118780YS 24 Hr Tmax: 37.2 at 07/16 09:00 36 Hr Tmax: 37.2 at 07/16 09:00 Vital Signs are the last 5 in the past 48 hours. Weights display the last 5 within 7 days. Initial Wt: 07/16 62.3 kg 137 lb Current Wt: 07/16 62.3 kg 137 lb GENERAL: HEENT: CARDIOVASCULAR: RESPIRATORY: ABDOMEN: EXREMETIES: NEUROLOGICAL: PSYCHIATRIC: LABS: No 36hr Lab Data DIAGNOSTICS: IMPRESSION: PLAN: History and Physical Update I have examined the patient; reviewed the H&P and there are no changes to the H&P unless noted below. Digitally Signed by EDUARDA RANDHAWA MD on 07/16/2024 10:37 AM [facility]01-20-2025 Anesthesiology Consult note Patient: BHAVIN HERNANDEZ Age: 69 years Sex: Female : 1955 Associated Diagnoses: None Author: DORCAS RODRIGUEZ APRN-SANITATION WORKER Preoperative Information Time of last food or liquid consumption: 07/16/2024 05:00:00 Anesthesia history Patient's history: negative. Family's history: negative. Review of Systems Ear/Nose/Mouth/Throat: Negative. Respiratory: Negative. Cardiovascular: htn, aortic valve disease. Gastrointestinal: Reflux. Genitourinary: Negative. Endocrine: Negative. Musculoskeletal: Negative. Integumentary: Negative. Neurologic: depression. Health Status Allergies: Allergic Reactions (Selected) Severity Not Documented Adalat- No reactions were documented. Amoxicillin- No reactions were documented. Bextra- No reactions were documented. Ceftin- No reactions were documented. Cleocin HCl- No reactions were documented. Macrobid- No reactions were documented. Penicillin- No reactions were documented. Sulfamethoxazole- No reactions were documented. Vioxx- No reactions were documented., Allergies (9) ActiveSeverityReaction AdalatNone Documented amoxicillinNone Documented BextraNone Documented CeftinNone Documented Cleocin HClNone Documented MacrobidNone Documented penicillinNone Documented sulfamethoxazoleNone Documented VioxxNone Documented Current medications: (Selected) Inpatient Medications Ordered LR 1,000 mL: 50 mL/hr, Intravenous Normal Saline 500 mL 500 mL: 20 mL/hr, Intravenous vancomycin: 750 mg, 15 mL, 265 mL/hr, IV Piggyback, PREOP pharm Documented Medications Documented Adult Aspirin 81 mg oral tablet, chewable: 81 mg, 1 tab(s), Chewed, qDay, 0 Refill(s) Ambien: 5 mg, Oral, qHS, PRN: as needed for sleep, 0 Refill(s) Cardizem: 120 mg, Oral, qDayM, 0 Refill(s) D3: 1000 IU, Oral, qDay, 0 Refill(s) MiraLax oral powder for reconstitution: 17 gram(s), Oral, BID, 238 gram(s), 0 Refill(s) Probiotic: 1 million to 10 billion, Oral, Daily, 0 Refill(s) Wellbutrin XL 150 mg/24 hours oral tablet, extended release: 300 mg, 2 tab(s), Oral, q24h, 30 tab(s), 0 Refill(s) Zoloft 100 mg oral tablet: 150 mg, 1.5 tab(s), Oral, qDay, 30 tab(s), 0 Refill(s) alendronate 70 mg oral tablet: 0 Refill(s) estradiol 0.1 mg/g vaginal cream: 1 appl, Vaginal, 2X/week, 0 Refill(s) fluticasone proprionate NASAL 50 mcg/ spray: 2 spray(s), Nostril, each, BID, 0 Refill(s) pantoprazole 40 mg oral enteric coated tablet: 40 mg, 1 tab(s), Oral, qDay, 30 tab(s), 0 Refill(s), Medications (3) Active Scheduled: (1) vancomycin 750 mg 15 mL, IV Piggyback, PREOP pharm Continuous: (2) Lactated Ringers Infusion 1,000 mL 1,000 mL, Intravenous, 50 mL/hr Sodium Chloride 0.9% intravenous solution 500 mL 500 mL, Intravenous, 20 mL/hr PRN: (0) Problem list: Active Problems (5) Allergic rhinitis Aortic valve disorder Depression Gastroesophageal reflux disease Hypertension Histories Past Medical History: No active or resolved past medical history items have been selected or recorded. Family History: Suicide Brother Father Procedure history: Aortic valve ([id number]) on 06/19/2020 at 65 Years. Comments: 06/29/2021 8:01 MER Wright AND REPAIRED ANEURYSM colonoscopy on 08/28/2018 at 63 Years. colonoscopy on 12/26/2017 at 62 Years. Cholecystectomy; (17293). Hysterectomy ([id number]). Hand surgery ([id number]). Comments: 07/16/2024 8:53 EST - Jannet Smith RN right Social History: Social & Psychosocial Habits Alcohol 07/16/2024 Use: Never Substance Abuse 07/16/2024 Use: Never Tobacco 07/16/2024 Tobacco Use: Never (less than 100 in l Home/Environment 07/16/2024 Living situation: Home/Independent Physical Examination Vital Signs 07/16/2024 9:00 EST Temperature Temporal Artery 37.2 DegC Peripheral Pulse Rate 87 bpm Respiratory Rate 15 br/min Systolic Blood Pressure Non-Invasive 150 mmHg HI Diastolic Blood Pressure Non-Invasive 76 mmHg Vital Signs (last 24 hrs) Last Charted Temp Tgbsaiqt25.2 DegC (JUL 16 09:00) SBPH 150 mmHg (JUL 16 09:00) DBP76 mmHg (JUL 16 09:00) Measurements from flowsheet : Measurements 07/16/2024 9:00 EST Height 165.10 cm Admission Weight 62.27 kg [place] Body Weight 57.00 kg Admission Body Mass Index 22.84 m2 Pain assessment: Pain Assessment 07/16/2024 9:00 EST Primary Pain Intensity 0 Pain Scale Type 0-10 Pain scale . General: Alert and oriented. Airway: Normal temporomandibular joint mobility. Mallampati classification: II (soft palate, fauces, uvula visible). Head: Normocephalic. Dentition Evaluation: Own teeth. Neck: Supple. Respiratory: Lungs are clear to auscultation. Cardiovascular: Normal rate. Heart Sounds: Normal. Gastrointestinal: Soft. Musculoskeletal Normal range of motion. Integumentary: Intact. Neurologic: Alert, Oriented. Review / Management Results review: No qualifying data available , Lab results 07/16/2024 10:12 EST SN - GCD - Post-operative Diagnosis HISTORY OF COLON POLYPS (CECUM) SN - GCD - Case Level OPD Level 3 07/16/2024 10:05 EST SN - CAt - Case Attendee SN - CAt - Case Attendee SN - CAt - Case Attendee SN - CAt - Case Attendee SN - CAt - Case Attendee SN - CAt - Case Attendee SN - CAt - Case Attendee SN - CAt - Case Attendee SN - CAt - Role Performed Scrub 1 SN - CAt - Role Performed SANITATION WORKER SN - CAt - Role Performed Web Systems Developer 1 SN - CAt - Role Performed Primary Surgeon 07/16/2024 9:06 EST gentamicin 120 mg mg Dextrose 5% in Water 50 mL mL 07/16/2024 9:05 EST Continuous IV Infusions n.s. Hand Right 07/16/2024 22 gauge Peripheral IV Activity: Insert new site Peripheral IV Site Condition: No complications Peripheral IV Number of Attempts: 1 07/16/2024 9:00 EST Height 165.10 cm Admission Weight 62.27 kg [place] Body Weight 57.00 kg Admission Body Mass Index 22.84 m2 Temperature Temporal Artery 37.2 DegC Peripheral Pulse Rate 87 bpm Respiratory Rate 15 br/min Systolic Blood Pressure Non-Invasive 150 mmHg HI Diastolic Blood Pressure Non-Invasive 76 mmHg Primary Pain Intensity 0 Pain Scale Type 0-10 Pain scale Heart Rhythm Regular Respirations Unlabored Respiratory Pattern Regular Oxygen Therapy Room air Oxygen Saturation 95 % Abdomen Description Non-distended, Soft Urinary Elimination Voiding, no difficulties Skin Temperature Warm Skin Description Mcmillin, Normal for ethnicity, Dry Skin Moisture General Dry Characteristics of Speech Clear Level of Consciousness Alert Strength All Extremities Strong Tone All Extremities Normal Affect/Behavior Appropriate Orientation Oriented x 4 Assistive Device None Positioning Repositions self Activity Status ADL Awake Standard Safety ID band on, Allergy Band on, Call device within reach, Bed in low position, Wheels locked, Visitor at bedside 07/16/2024 8:53 EST Designated Person #1 We May Share PHI MARGO [phone] Designated Person #1 Relationship Spouse Privacy Restrictions Requested None Status No, per patient Sensory Deficits Hearing deficit, left ear, Hearing deficit, right ear Sleep Apnea Snore No Sleep Apnea Tired No Sleep Apnea Obstruction No Sleep Apnea Pressure No Sleep Apnea BMI No Sleep Apnea Age Yes Sleep Apnea Neck No Sleep Apnea Gender No Sleep Apnea Score 1 Diagnosed With Sleep Apnea No Advanced Directives Unable to obtain Infectious Disease Symptoms Patient states no symptoms Infectious Disease Recent Exposure No Alcohol and Drug Use No Employee of Institutional Living No Health Care Employee No History of Exposure to TB No History of Positive Chest X-Ray for TB No History of Positive TB Skin Test No Homeless No Known Immunosuppression No Recent Immigrant No Resident of Institutional Living No Bloody Sputum No Fatigue No Fever No Loss of Appetite No Night Sweats No Persistent Cough > 3 Weeks No Weight Loss No Barriers to Learning Hearing deficit Teaching Method Explanation Preferred Spoken Language Citizen Of [place] Preferred Written Language Citizen [place] Teaching Evaluation No further teaching needed Safety Brochure Information Reviewed Unable to complete [facility] Video Viewed No Patient's Current Physicians Patient's Current Physicians Discharge To, Anticipated Home with family care Prev Test Positive/Diagnosis w/COVID-19 Yes Previous COVID-19 Positive Date Previous COVID-19 Positive Date Current Quarantine/Isolated any Illness No Any Contact with Sick Animals/Birds No Traveled Anywhere in Last 30 Days No Lost Weight Unintentionally Recently No Eat Poorly Due to Decreased Appetite No Total MST Score 0 No Personal Devices, Patient Valuables None Anesthesia/Transfusions Prior anesthesia Admission Note-Nursing Same Day Patient History . Assessment and Plan [place] [employer] Anesthesiologists (ASA) physical status classification: Class III. Anesthetic Preoperative Plan Anesthetic technique: MAC. Postoperative pain management: Per surgeon. Informed consent: signed by patient. Digitally Signed by DORCAS RODRIGUEZ on 07/16/2024 10:18 AM [facility]09-16-2022 NoteHNO ID: [id number] Author: RT Harris(R) Service: Radiology Author Type: Technologist Type: Progress Notes Filed: 03/12/2022 11:46 AM Note Text: Radiology Service Progress Note PATIENT NAME: Bhavin Hernandez DATE OF SERVICE: March 12, 2022 [...] BY: RT Harris(R) March 12, 2022 11:39 [facility]09-16-2022 NoteHNO ID: [id number] Author: Norma Moraes APRN.LINEN AIDE Service: ? Author Type: Nurse Practitioner Type: Progress Notes Filed: 03/12/2022 1:00 PM Note Text: This note was created using NoteWriter. Subjective Bhavin Hernandez is a 66 year old female. [...] history is provided by the patient. No bilingual interpreter was used. Wrist/forearm Injury The incident occurred [...] Packet by mouth once daily. Lactobac comb 0-OBC-xpadkejfak (PROBIOTIC AND ACIDOPHILUS) 300-250 million cell-mg cap [...] 21.33 kg/m? Physical E (more content not included)...[facility]09-16-2022 Instructions* Patient Instructions* Norma Moraes APRN.CNP - 03/12/2022 12:31 PM EDT R.I.C.E. The [...] thin washcloth between the bag and your skin.Apply the ice bag to the area for [...] pillows when lying down. [facility] History of Present illness Narrative* Leena Santos RT(R) - 03/12/2022 11:50 AM EDT Radiology Service Progress Note PATIENT NAME: Bhavin Hernandez DATE OF SERVICE: March 12, 2022 TIME: 11:39 AM PATIENT IDENTITY VERIFICATION COMPLETED USING TWO (2) IDENTIFIERS: Name and Date of confirmedby patient verbally. FALL SCREENING: Has the patient had 2 falls in the last year or 1 fall with injury or currently using an Ambulatory Assistive Device (Walker, Cane, Wheelchair, Crutches, etc.)? No PATIENT GENDER DATA: Female. status: : No status: NO. PATIENT RELEVANT IMPLANT DATA REVIEWED: Yes RADIOLOGY DEPARTMENT: General X-ray: Exam(s) Completed: Upper Extremity X- Ray(s): Wrist, right PERIPHERAL IV DATA: Not applicable SIGNED BY: RT Harris(R) March 12, 2022 11:39 AM documented in [facility] History of Present illness Narrative* Norma Moraes APRN.LINEN AIDE - 03/12/2022 11:33 AM EDT This note was created using [employer]. Subjective Bhvain Hernandez is a 66 year old female. [...] history is provided by the patient. No bilingual interpreter was used. Wrist/forearm Injury The incident occurred 12 to 24 hours ago. The incident occurred at home. The injury mechanism was afall. Pain location: right wrist. The quality of the pain is described as aching. The pain does notradiate. The pain is at a severity of [...] Packet by mouth once daily. Lactobac comb 2-AMT-esyfupnrfa (PROBIOTIC AND ACIDOPHILUS) 300-250 million cell- mg cap Take 1 capsule by mouth once [...] No swelling, deformity or signs of injury. Normalrange of motion. Cervical back: Normal range of [...] with ortho or PCP if symptoms persist. Norma Moraes APRN.ZULLY documented in [facility] Evaluation + Plan note Extracted from: Title:Clinical Document Author:SYDNEEEDUARDA Braxton Lund Date:06/29/21 ERROL ADMISSION HISTORY A [place] PHYSICIAL CHIEF COMPLAINT: HISTORY OF PRESENT ILLNESS: REVIEW OF SYSTEMS: ACTIVE PROBLEMS: (5) Allergic rhinitis (425986312) Aortic valve disorder (20964211) Depression (536228874) Gastroesophageal reflux disease (349524340) Hypertension (16703032) MEDICATIONS: Active Inpt Meds: None Active PRN Meds: None One Time Meds: None Active IV Meds: Lactated Ringers Infusion 1,000 mL (LR 1,000 mL) Start: 06/29/21 8:12:00 EST, Rate: 50 mL/hr ALLERGIES: (9) Adalat amoxicillin Bextra Ceftin Cleocin HCl Macrobid penicillin sulfamethoxazole Vioxx FAMILY HISTORY: SOCIAL HISTORY: PHYSICAL EXAM: VITALS: YjiifvKhclFRMqcfrXVRwD5GEH9UcrtQf(kg) 06/29 10:00--156/[id number]/ 60.0 06/29 08:0437.1158/99071257FV 24 Hr Tmax: 37.1 at 06/29 08:04 [...] changes to the H&P unless noted below. [facility] 01-03-2022 Hospital Discharge instructions Patient Education 06/29/2021 11:03:50 Colonoscopy, Adult, Care After, Ovcv-ek-Bgkq Colonoscopy, Adult, Care After This sheet gives [...] are soft and easy to digest. Take ozeg-cja-mblhqbj or prescription medicines only as told by [...] 07/16/2011 Document Revised: 04/13/2018 Document Reviewed: 03/07/2017 [employer] Patient Education 2020 [employer]. 06/29/2021 11:03:18 Nausea and Vomiting, Adult, Sqfh-oq-Ipvf Nausea and Vomiting, Adult Nausea is feeling [...] doctor about them. Follow these instructions to carefor yourself at home. Eating and drinking Take an ORS (oral rehydration solution). This is a drink that is sold at pharmacies and stores. Drink clear fluids in small amounts as you are able, such as: ?Water. ?Ice chips. ?Fruit juice that has water added (diluted fruit juice). ?Low-calorie sports drinks. Eat bland, yyuy-xy-bntwds foods in small amounts as you are able, such as: ?Bananas. ?Applesauce. ?Rice. ?Low-fat (lean) meats. ?Kildeer. ?Crackers. Avoid drinking fluids that have a lot of sugar or caffeine in them. This includes energy drinks, sports drinks, and soda. Avoid alcohol. Avoid spicy or fatty foods. General instructions Take dcsi-qrv-sihcovg and prescription medicines only as told by your doctor. Drink enough fluid to keep your pee (urine) pale yellow. Wash your hands often with soap and water. If you cannot use soap and water, use hand hoseman. Make sure that all people in your [...] too much water in your body. Take armo-xku-pwvzits and prescription medicines only as told by [...] 11/29/2008 Document Revised: 10/05/2019 Document Reviewed: 11/21/2018 Elsevier Patient Education 2020 [employer]. 06/29/2021 11:03:09 Monitored Anesthesia Care, Care After Monitored Anesthesia Care, Care After These instructions provide you with information about caring for yourself after your procedure. Your health care provider may also give you more specific instructions. Your treatment has been plannedaccording to current medical practices, but problems sometimes [...] have someone help care for you until youare awake and alert. Rest as needed. Do [...] before eating solid foods. General instructions Take mtld-gdd-gtgkacp and prescription medicines only as told by [...] 10/03/2016 Document Revised: 09/11/2018 Document Reviewed: 10/03/2016 [employer] Patient Education 2020 [employer]. 06/29/2021 11:02:29 Colon Polyps Colon Polyps Polyps [...] 03/09/2005 Document Revised: 09/28/2018 Document Reviewed: 09/28/2018 [employer] Patient Education 2020 [employer]. Follow Up Care 06/11/2021 08:47:54 With:EDUARDA RANDHAWA MD Address: [phone] When: Unknown Comments:CONTACT DR RANDHAWA WITH ANY QUESTIONS OR GO TO THE EMERGENCY ROOM WITH ANY URGENT MATTERS. [facility] 12-23-2020 History of Past illness Narrative* Problem Noted Date Resolved Date Thrombocytopenia 06/18/2020 06/18/2020 Overview: History: Postop Assessment: PLT count 60; no overt S/Sx of bleeding Plan: Trend Fluid overload 06/17/2020 06/18/2020 Overview: History: Post op Assessment: Net negative 1.9 L / 24 hours. Plan: Continue diuresis Post-op pain 06/17/2020 06/18/2020 Overview: History: 06/16/2020: AVR, Ascending aorta replacement. Assessment: Patient voices adequate pain control. 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 No prior Hx of DM. Assessment: Perioperative insulin resistance and exacerbation of hyperglycemia. Plan: SSI for glycemic control. On mechanically assisted ventilation 06/16/2020 06/17/2020 Overview: History: Grade I airway Assessment: On minimal vent settings Plan: WTE Prolonged QT interval 06/16/2020 06/18/2020 Overview: History: Post op Assessment: QTc 520 Plan: Avoid QT prolonging medications Pain in joint, shoulder region 06/11/2008 1 documented as of this encounter (statuses as of 03/12/2022) [facility] Evaluation note* Diagnosis Onset Date Resolution Status Nonrheumatic mitral (valve) prolapse acute Essential hypertension chron ic History of aortic valve repl acement with bioprosthetic valve May, chronic History of ascending aortic replacement May, chronic Hyperlipidemia chronic [facility] Work Phone: Evaluation noteNo assessment information available [facility] Work Phone: Evaluation note* Diagnosis Fall, initial encounter- Primary Right wrist pain Pain in joint, forearm [facility] this [facility] Fall, initial encounter Right wrist pain Pain in joint, forearm [facility] Narrative No data available for this section [facility] Reason for referral (narrative)* Diagnostic Procedure Only (Urgent) - Closed Specialty Diagnoses / Procedures Referred By Contac t Referred To Contact XR IMAGING Diagnoses Fall, initial encounter Right wrist pain Procedures XR WRIST GENERAL 3V PA/LAT/OBL RIGHT RADEX WRIST COMPLETE MINIMUM 3 VIEWS Norma Moraes APRN.LINEN AIDE [address] [place] [address] Xr Imaging Referral ID Status Reason Start Date Expiration Date V isits Requested Visits Authorized [id number] Closed Auto-Generate d Referral 03/12/2022 04/11/2023 1 1 [facility] for referral (narrative)* Diagnostic Procedure Only (Urgent) - Closed Specialty Diagnoses / Procedures Referred By Contac t Referred To Contact XR IMAGING Diagnoses Fall, initial encounter Right wrist pain Procedures XR WRIST GENERAL 3V PA/LAT/OBL RIGHT RADEX WRIST COMPLETE MINIMUM 3 VIEWS Norma Moraes APRN.LINEN AIDE [address] [place] [address] [place] [address] Referral ID Status Reason Start Date Expiration Date V isits Requested Visits Authorized [id number] Closed Auto-Generate d Referral 03/12/2022 04/11/2023 1 1 [facility] for visit Narrative* Diagnostic Procedure Only (Urgent) - Closed Specialty Diagnoses / Procedures Referred By Contac t Referred To Contact XR IMAGING Diagnoses Fall, initial encounter Right wrist pain Procedures XR WRIST GENERAL 3V PA/LAT/OBL RIGHT RADEX WRIST COMPLETE MINIMUM 3 VIEWS Norma Moraes, MANUFACTURING OPERATOR.LINEN AIDE [address] [place] [address] [place] [address] Referral ID Status Reason Start Date Expiration Date V isits Requested Visits Authorized [id number] Closed Auto-Generate d Referral 03/12/2022 04/11/2023 [address] 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 Advance Directive(s) 06/13/2020 3:11 PM Chief Complaint and Reason for Visit Chief Complaint INFRARENAL AAA 3.8 N OTED ON LUMBAR X-RAY Chief Complaint INFRARENAL AAA 3.8 N OTED ON LUMBAR X-RAY SCREENING Chief Complaint INFRARENAL AAA 3.8 N OTED ON LUMBAR X-RAY SCREENING 1 y fu Presence of xenogenic heart valve E ORDERS Reason for Visit Nonrheumatic mitral (valve) prolapse Essential hypertension History of aortic valve replacement with bioprosthetic valve History of ascending aortic replacement Hyperlipidemia Additional Source Comments INFORMATION SOURCE (unrecogn ized section and content) DATE CREATED AUTHOR 07/07/2021 [facility] ([place]) DATE CREATED AUTHOR AUTHOR'S ORGANIZ ATION 03/27/2022 [facility] DATE CREATED AUTHOR AUTHOR'S ORGANIZ ATION 07/19/2024 [facility] DATE CREATED AUTHOR AUTHOR'S ORGANIZ ATION 05/02/2025 [facility] Goals (unrecognized section and content) Goals may be documented in a n alternate section Source Comments (unrecognize d section and content) In the event this informatio n is protected by the Federal Confidentiality of Alcohol and Drug Abuse Patient Records regulations: The Federal rules restrict any use of the information to criminally investigate or prosecute any alcohol or drug abuse patient.[facility] the event this information is protected by the Federal Confidentiality of Alcohol and Drug Abuse Patient Records regulations: The Federal rules restrict any use of the information to criminally investigate or prosecute any alcohol or drug abuse patient.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 [employer] [facility]. provides no warranty or guarantee of the accuracy or completeness of information in this document.
== END | disposition home or self-care (01) ==
PROVIDERS: PCP Family Medicine; Referring Provider Student in an Organized Health Care Education/Training Program; Visit Provider Student in an Organized Health Care Education/Training Program
DX: M19.011 Primary osteoarthritis, right shoulder (principal)
CPT/HCPCS: 73200